=== PATIENT | female | born 1970 | race Caucasian/White ===

== ENCOUNTER → 2016-06-23 | Outpatient (REF) | payer OTHER ==
[~2016-06-23] MED LIST: /LOR25TA PO; AMBI5TAB OR; DARV100T OR; DIOV160T5 OR; FLEXERIL OR; FLEXERIL PO; IBUP800T OR; NABU500T OR; PRIL20CA OR; SAVE50TA PO; SAVELLA OR; TRAM50TA2 PO; VENTAER IN; savella OR
== END ==
LOC: M SFHCWAGY 15:33
PROVIDERS: ATTEND Nurse Practitioner Family
DX: N90.89 Other specified noninflammatory disorders of vulva and perineum (principal)

== ENCOUNTER 2016-07-06 23:25 | Emergency (ER) | payer OTHER ==
[~2016-07-06] VITALS: Ht 170.2 cm; Wt 93.0 kg
[2016-07-06] MEDS ORDERED: INCR1INH INH (23:48)
[2016-07-06] MEDS ORDERED: TIZANIDINE PO (23:48)
[2016-07-06] MEDS ORDERED: LOSA100T36 PO (23:48)
[2016-07-06] MEDS ORDERED: GABA-282 PO (23:48)
[2016-07-06] MEDS ORDERED: VENL150C43 PO (23:48)
[2016-07-06] MEDS ORDERED: BREO1INH INH (23:48)
[2016-07-07 00:45] LABS: BASO # 0.1 K/mm3 (0.0-0.2); BASO % 0.7 % (0.0-1.0); EOS # 0.4 K/mm3 (0.0-0.50); EOS % 3.4 % (0.0-3.0); LARGE UNSTAINED CELL # 0.2 K/mm3 (0.0-0.4); LARGE UNSTAINED CELL % 1.4 % (0.0-4.0); LYMPH # 3.8 K/mm3 (1.5-4.5); LYMPH % 31.4 % (24.0-44.0); MEAN CORPUSCULAR HEMOGLOBIN 31.4 pg (27.0-33.0); MEAN CORPUSCULAR VOLUME 92.5 fl (80.0-96.0); MONO # 0.5 K/mm3 (0.0-0.8); MONO % 4.5 % (0.0-5.0); NEUTROPHILS # 6.9 K/mm3 (1.8-7.7); NEUTROPHILS % 58.6 % (36.0-66.0); PLATELET COUNT, AUTOMATED 278 k/mm3 (150-450); RED CELL DISTRIBUTION WIDTH 12.5 % (11.5-14.5); WHITE BLOOD COUNT 11.7 K/mm3 (4.0-10.0)
[2016-07-07] MEDS ORDERED: KETOROLAC 30 MG/ML VIAL (J1885) IV ONE (00:45)
[2016-07-07] MEDS ORDERED: NS 1,000 ML IV ONE (00:45)
[2016-07-07 01:02] LABS: ALBUMIN 3.4 GM/DL (3.2-5.2); ALBUMIN/GLOBULIN RATIO 0.94 (1.00-1.93); ALKALINE PHOSPHATASE 85 U/L (45-117); ALT/SGPT 26 U/L (12-78); AMYLASE 31 U/L (25-115); ANION GAP 7 MEQ/L (8-16); AST/SGOT 14 U/L (15-37); BILIRUBIN,DIRECT < 0.1 MG/DL (0.0-0.2); BILIRUBIN,TOTAL 0.1 MG/DL (0.2-1.0); BLOOD UREA NITROGEN 16 MG/DL (7-18); CALCIUM LEVEL 9.1 MG/DL (8.5-10.1); CARBON DIOXIDE LEVEL 27 MEQ/L (21-32); CHLORIDE LEVEL 103 MEQ/L (98-107); CREATININE FOR GFR 0.96 MG/DL (0.55-1.02); GLOMERULAR FILTRATION RATE > 60.0 (>58); GLUCOSE, FASTING 101 MG/DL (70-105); POTASSIUM SERUM 4.1 MEQ/L (3.5-5.1); SODIUM LEVEL 137 MEQ/L (136-145)
[2016-07-07] MEDS ORDERED: ISOVUE-370 76% 100ML VIAL (Q9967) As Ordered ONE (01:24)
--- NOTE | 2016-07-07 01:50 | REPUSA ---
CT of the abdomen and pelvis with contrast Clinical statement: Pain. Technique: Multiple axial CT images were obtained from the base of the lungs through the floor of the pelvis utilizing 5 mm axial slices after administration of nonionic intravenous contrast. Coronal an d sagittal reconstructions were also obtained. No comparison is available. Findings: Chest: The visualized lung bases are clear. Abdomen: The liver, spleen, pancreas, kidneys, gallbladder, and adrenal glands are unremarkable. The aorta is within normal limits. There is no evidence of abdominal lymphadenopathy or ascites. Pelvis: The bowel is unremarkable, with no obstructive or inflammatory changes. The appendix is james l. The urinary bladder is within normal limits. The other pelvic structures appear grossly intact. Th ere is no evidence of pelvic lymphadenopathy or ascites. Bones: There are no suspicious osseous abnormalities seen. Impression: Unremarkable CT examination of the abdomen and pelvis No acute abnormality to explain the patient's pain.
[2016-07-07] MEDS ORDERED: MORPHINE 4 MG/ML 1ML SYRINGE IV ONE (02:30)
[2016-07-07] MEDS ORDERED: diphenhydrAMINE INJ 50MG/ML VIAL (J1200) IV ONE (02:30)
[2016-07-07 03:07] VITALS: BP 124/80
== END 2016-07-07 03:09 | disposition home or self-care (01) ==
LOC: M ED 07-07 00:30
DX: R10.9 Unspecified abdominal pain (principal); K21.9 Gastro-esophageal reflux disease without esophagitis; G89.29 Other chronic pain; M54.9 Dorsalgia, unspecified; F17.200 Nicotine dependence, unspecified, uncomplicated; Z79.899 Other long term (current) drug therapy; Z88.5 Allergy status to narcotic agent
CPT/HCPCS: 74177; 80048; 80076; 81001; 82150; 83690; 85025; 87086; 96361; 96374; 96375; 99282; J1200; J1885; Q9967

== ENCOUNTER 2017-03-21 12:13 | Emergency (ER) | payer OTHER ==
[2017-03-21] MEDS: KETOROLAC 60 MG/2 ML VIAL (J1885) IM (14:24)
[2017-03-21] MEDS: BACLOFEN 10 MG TAB PO (14:24)
== END 2017-03-21 14:26 | disposition home or self-care (01) ==
LOC: M ED 12:13
DX: M54.32 Sciatica, left side (principal); G89.29 Other chronic pain; M79.605 Pain in left leg; I10 Essential (primary) hypertension; J45.909 Unspecified asthma, uncomplicated; G47.33 Obstructive sleep apnea (adult) (pediatric); M79.7 Fibromyalgia; F41.9 Anxiety disorder, unspecified; F33.9 Major depressive disorder, recurrent, unspecified; F17.210 Nicotine dependence, cigarettes, uncomplicated; Z88.5 Allergy status to narcotic agent; Z79.899 Other long term (current) drug therapy; Z79.51 Long term (current) use of inhaled steroids
CPT/HCPCS: J1885

== ENCOUNTER 2018-01-04 19:26 | Emergency (ER) | payer MEDICARE, MEDICAID, OTHER ==
[2018-01-04] MEDS ORDERED: diphenhydrAMINE 50 MG CAP As Ordered (20:18)
[2018-01-04] MEDS: diphenhydrAMINE 50 MG CAP PO (20:21)
[2018-01-04] MEDS: predniSONE 20 MG TAB PO (20:32)
== END 2018-01-04 21:29 | disposition home or self-care (01) ==
LOC: M ED 19:26
DX: S80.861A Insect bite (nonvenomous), right lower leg, initial encounter (principal); W57.XXXA Bitten or stung by nonvenomous insect and other nonvenomous arthropods, initial encounter; Y92.89 Other specified places as the place of occurrence of the external cause; I10 Essential (primary) hypertension; J45.909 Unspecified asthma, uncomplicated; G47.30 Sleep apnea, unspecified; M79.7 Fibromyalgia; K21.9 Gastro-esophageal reflux disease without esophagitis; F41.9 Anxiety disorder, unspecified; F33.9 Major depressive disorder, recurrent, unspecified; Z79.899 Other long term (current) drug therapy; Z88.5 Allergy status to narcotic agent; F17.210 Nicotine dependence, cigarettes, uncomplicated
CPT/HCPCS: 99283

== ENCOUNTER → 2018-09-07 | Outpatient (CLI) | payer MEDICARE ==
[~2018-09-07] MED LIST changes: +BENA25CA4 PO; +BREO1INH INH; +GABA-843 PO; +INCR1INH INH; +LOSA100T50 PO; +PRED20TA PO; +SERT-138 PO; +TIZANIDINE PO; +VENL150C43 PO
--- NOTE | 2018-09-07 13:36 | REPMRS ---
Patient History The patient states she had a clinical breast exam in 08/2018. Family history of unknown cancer at age 50 or over in paternal grandmother, unknown cancer at age 50 or over in paternal aunt. Digital Woman Screen Mammo: September 07, 2018 - Exam #: [id number] Bilateral CC and MLO view(s) were taken. Technologist: Karrie Kapadia, Technologist Prior study comparison: October 31, 2014, digital woman screen mammo performed at [facility]. FINDINGS: There are scattered fibroglandular densities. There has been no change in the appearance of the mammogram from the prior studies. There is a mild amount of scattered fibroglandular density which is fairly symmetric. There is no interval development of dominant mass, architectural distortion, or clustered microcalcification suggestive of malignancy. 3-D tomosynthesis shows no additional findings. Assessment: BI-RADS/ACR category 1 mammogram. Negative Mammogram. Recommendation Routine screening mammogram of both breasts in 1 year (for women over age 40). This patient's Lifetime Breast Cancer RIsk is estimated at 9.9 %. This mammogram was interpreted with the aid of an FDA-approved computer-aided dectection system. Electronically Signed By: Sotero Lam MD 09/07/18 2146
== END ==
LOC: M WHC 11:32
PROVIDERS: ATTEND Nurse Practitioner Family
DX: Z01.419 Encounter for gynecological examination (general) (routine) without abnormal findings (principal); Z12.31 Encounter for screening mammogram for malignant neoplasm of breast
CPT/HCPCS: 77063; 77067; G0101; G0123

== ENCOUNTER 2019-08-26 13:58 | Emergency (ER) | payer MEDICARE, MEDICAID ==
[~2019-08-26] VITALS: Ht 165.1 cm; Wt 95.3 kg
[2019-08-26] MEDS ORDERED: OMEP-221 PO (14:25)
[2019-08-26] MEDS ORDERED: TIZA4TAB4 PO (14:25)
[2019-08-26] MEDS ORDERED: HYDR-3719 PO (14:25)
[2019-08-26] MEDS ORDERED: VENTAER INH (14:25)
[2019-08-26] MEDS ORDERED: BREO1INH3 INH (14:25)
[2019-08-26] MEDS ORDERED: IBUP80TA PO (14:25)
[2019-08-26] MEDS ORDERED: GABA600T4 PO (14:25)
[2019-08-26] MEDS ORDERED: ZOLP5TAB PO (14:25)
[2019-08-26] MEDS ORDERED: methocarbamoL 750 MG TAB PO ONE (14:45)
[2019-08-26] MEDS ORDERED: KETOROLAC 60MG 2ML VIAL IM ONE (14:45)
[2019-08-26] MEDS ORDERED: ROBA750T4 PO (15:15)
[2019-08-26 15:18] VITALS: BP 137/92
== END 2019-08-26 15:20 | disposition home or self-care (01) ==
LOC: M ED 13:58
DX: M54.9 Dorsalgia, unspecified (principal); G89.29 Other chronic pain; I10 Essential (primary) hypertension; J45.909 Unspecified asthma, uncomplicated; K21.9 Gastro-esophageal reflux disease without esophagitis; M79.7 Fibromyalgia; F41.9 Anxiety disorder, unspecified; F32.9 Major depressive disorder, single episode, unspecified; F17.210 Nicotine dependence, cigarettes, uncomplicated; G47.30 Sleep apnea, unspecified; Z88.5 Allergy status to narcotic agent; Z79.899 Other long term (current) drug therapy
CPT/HCPCS: 99283; J1885

== ENCOUNTER 2019-12-09 20:58 | Emergency (ER) | payer MEDICARE, MEDICAID ==
[~2019-12-09] VITALS: Ht 167.6 cm; Wt 93.2 kg
[~2019-12-09 20:58] MED LIST changes: +BREO1INH3 INH; +GABA600T4 PO; +HYDR-3719 PO; +IBUP80TA PO; +OMEP-221 PO; +ROBA750T4 PO; +TIZA4TAB4 PO; +VENTAER INH; +ZOLP5TAB PO
[2019-12-09] MEDS ORDERED: GI COCKTAIL 50ML BTL(HYOSCYAMINE/MAALOX/LIDOCAINE VISCOUS)(1:3:1) PO ONE (21:45)
[2019-12-09 21:58] LABS: INR 0.84; PROTHROMBIN TIME 11.7 SECONDS (11.8-14.0)
[2019-12-09 21:59] LABS: PARTIAL THROMBOPLASTIN TIME 25.2 SECONDS (25.0-38.4)
[2019-12-09 22:01] LABS: D-DIMER QUANT 573.71 ng/ml (<500)
[2019-12-09 22:05] LABS: BASO # 0.1 10^3/uL (0.0-0.2); BASO % 0.7 % (0.0-1.0); EOS # 0.4 10^3/uL (0.0-0.5); EOS % 4.5 % (0.0-3.0); HEMATOCRIT 42.5 % (36.0-47.0); HEMOGLOBIN 14.2 g/dl (12.0-15.5); LYMPH # 3.6 10^3/uL (1.5-5.0); LYMPH % 37.2 % (24.0-44.0); MEAN CORPUSCULAR HEMOGLOBIN 30.1 pg (27.0-33.0); MEAN CORPUSCULAR HGB CONC 33.4 g/dl (32.0-36.5); MONO # 0.5 10^3/uL (0.0-0.8); MONO % 4.8 % (0.0-5.0); NEUTROPHILS # 5.1 10^3/uL (1.5-8.5); NEUTROPHILS % 52.6 % (36.0-66.0); PLATELET COUNT, AUTOMATED 278 10^3/uL (150-450); RED BLOOD COUNT 4.72 10^6/uL (4.00-5.40); WHITE BLOOD COUNT 9.7 10^3/uL (4.0-10.0)
[2019-12-09 22:12] LABS: ALBUMIN 3.8 GM/DL (3.2-5.2); ALT/SGPT 28 U/L (12-78); BILIRUBIN,DIRECT < 0.1 MG/DL (0.0-0.2); BILIRUBIN,TOTAL 0.2 MG/DL (0.2-1.0); BLOOD UREA NITROGEN 12 MG/DL (7-18); C REACTIVE PROTEIN QUANTITATIV 0.74 MG/DL (0.00-0.30); CALCIUM LEVEL 9.4 MG/DL (8.5-10.1); CARBON DIOXIDE LEVEL 25 MEQ/L (21-32); CHLORIDE LEVEL 112 MEQ/L (98-107); CREATININE FOR GFR 0.97 MG/DL (0.55-1.30); FREE T4 0.81 NG/DL (0.76-1.46); GLOMERULAR FILTRATION RATE > 60.0 (>58); GLUCOSE, FASTING 114 MG/DL (70-100); LIPASE 219 U/L (73-393); NT-PRO BNP 213 PG/ML (<125); POTASSIUM SERUM 3.7 MEQ/L (3.5-5.1); SODIUM LEVEL 143 MEQ/L (136-145); TOTAL PROTEIN 7.4 GM/DL (6.4-8.2)
[2019-12-09 22:13] LABS: HCG, SERUM QUALITATIVE NEGATIVE (NEGATIVE)
[2019-12-09] MEDS ORDERED: ALPRAZolam 0.5 MG TAB PO ONE (22:30)
[2019-12-09 22:34] LABS: ERYTHROCYTE SEDIMENTATION RATE 13 mm/hr (0-20)
[2019-12-09] MEDS ORDERED: ISOVUE-370 76% 100ML VIAL As Ordered ONE (22:37)
[2019-12-09 22:48] VITALS: BP 159/79
--- NOTE | 2019-12-09 23:08 | REPVR ---
PROCEDURE INFORMATION: Exam: XR Chest, 1 View Exam date and time: 12/09/2019 10:26 PM Age: 49 years old Clinical indication: Chest pain; Type not specified TECHNIQUE: Imaging protocol: XR of the chest Views: 1 view. COMPARISON: No relevant prior studies available. FINDINGS: Lungs: Unremarkable. No consolidation. Pleural space: Unremarkable. No pleural effusion. No pneumothorax. Heart/Mediastinum: Unremarkable. No cardiomegaly. Bones/joints: Unremarkable. IMPRESSION: No acute findings. Electronically signed by: Boo Penn On 12/09/2019 23:07:42 PM
--- NOTE | 2019-12-14 12:06 | ECGEPIP ---
[facility] - ED Test Date: 2019-12-09 Pat Name: LATOYA METZ Department: Room: - Gender: Female Glove Stitcher: timothy : 1970 Requested By: CHRISTINA Sim Order Number: [id number] Reading MD: Dee Izaguirre Measurements Intervals [place] Rate: 88 P: 30 AK: 160 QRS: 39 QRSD: 93 T: 41 QT: 352 QTc: 427 Interpretive Statements SINUS RHYTHM NONSPECIFIC T-WAVE ABNORMALITY BORDERLINE ECG SEE SCANNED DOWNTIME REPORT
== END 2019-12-09 22:58 | disposition left against medical advice (07) ==
LOC: M ED 20:58
DX: Z53.20 Procedure and treatment not carried out because of patient's decision for unspecified reasons (principal); Z79.51 Long term (current) use of inhaled steroids; Z79.899 Other long term (current) drug therapy; Z88.6 Allergy status to analgesic agent

== ENCOUNTER 2020-05-18 10:53 | Emergency (ER) | payer MEDICAID, MEDICARE ==
[~2020-05-18] VITALS: Ht 167.6 cm; Wt 93.5 kg
[2020-05-18 10:53] VITALS: BP 153/94
[~2020-05-18 10:53] MED LIST changes: +GABA-282 PO; -GABA-843 PO
--- OUTSIDE RECORDS SUMMARY | 2020-05-18 10:59 | CCD | Continuity of Care Document ---
Author Author Maria Ines ROJAS M.D. Organization Unknown Address [address] [address] Phone [phone] Problems Active Problems Provider Date Essential hypertension Maria Isabel Teixeira EPIC MANAGER-BC Onset: 2009 Insomnia Maria Isabel Teixeira [facility] Onset: 0 Tobacco user Maria Isabel Teixeira EPIC MANAGER-BC Onset: 0 Peptic reflux disease Maria Isabel Teixeira [facility] Onset: 010 Polyarthropathy Pastora Shahid RPA-C Onset: 2012 Benign essential hypertension Pastora Shahid RPA-C Ons et: 08/03/2012 Allergic rhinitis Pastora Shahid RPA-C Onset: 2012 Chronic pain syndrome Pastora Shahid RPA-C Onset: 07/27 Chronic obstructive lung disease Pastora Shahid RPA-C Onset: 07/11/2013 Acute bronchitis Pastora Shahid RPA-C Onset: 2013 Spinal stenosis in cervical region Vernon Rojas M.D. O nset: 07/31/2014 Stenosis of intervertebral foramina Vernon Rojas M.D. Onset: 07/31/2014 Acute pharyngitis Elmer Encinas RPA Onset: 09/06/2016 Acute sinusitis Elmer Encinas RPA Onset: 09/06/2016 Social History Type Date Description Comments Sex Unknown Tobacco Use Start: Unknown Current Cigarette Smoker 1/2 Pac k Daily Smoking for 20 years ETOH Use Drinks alcohol about once per we ek. Tobacco Use Start: Unknown Patient is a current smoker, smo kes every day Allergies, Adverse Reactions, Alerts Active Allergies Reaction Severity Comments Date Morphine 07/18/2009 Inactive Allergies NKDA 07/18/2009 Medications Active Medications SIG Qnty Indications Ordering Provide r Date Benadryl Allergy 25mg Tablets 1 by mouth daily at bedtime for sleep OTC Vernon Rojas M. D. 12/12/2019 Buspirone HCL 10mg Tablets take one tablet by mouth three times a day maximum daily dose = three tablets 90tabs Vernon Rojas M.D. 12/11/2019 Zoloft 50mg Tablets 1 by mouth every day 90tabs Vernon Rojas M.D. 06/29/2019 Hydrocodone-Acetaminophen 10-325mg Tablets one by mouth three times a day [id number] 90taVernon Tamayo M.D. 11/01/2018 Zolpidem Tartrate 5mg Tablets take one tablet by mouth every night at bedtime as needed for insomnia maximum daily dose = 1 tablet [id number] 30tabs G47.00 Vernon Rojas M.D. 04/2018 Sertraline HCL 100mg Tablets take one tablet by mouth every day 30tabs Vernon Rojas M.D . 04/03/2018 Tizanidine HCL 4mg Tablets Take One Tablet By Mouth Three Times A Day as Needed Max 3Tabs/Day 90taVernon Tamayo M.D. 2017 Gabapentin 600mg Tablets take one tablet by mouth qid 120tabs Vernon Rojas M.D. 04/04/19 18 Breo Ellipta 200-25mcg/Inh Aerosol Inhale One puff By Mouth Every Day 60units Vernon Rojas M .D. 11/02/2016 Incruse Ellipta 62.5mcg/Inh Aeroso l Inhale 1 puff By Mouth Once Daily Take AT Same Time Every Day (Replaces Spiriva) 30units Vernon Rojas M.D. 02/19/2015 Losartan Potassium 100mg Tablets Take One Tablet By Mouth Every Day Maximum Daily Dose = 1 30tabs Vernon Rojas M.D. 05/29/2013 Ventolin HFA 108(90Base) mcg/Act A erosol inhale two puffs by mouth every 4 hours as needed for shortness of breath 18unVernon Villareal M.D. 07/18/[address] Take One Capsule By Mouth Twice A Day 60caps Vernon Rojas M.D. 11/19/2010 Ibuprofen 800mg Tablets Take One Tablet By Mouth Three Times A Day as Needed Maximum Daily Dose = 3 Tablets 90tabs Vernon Rojas M.D. Medications Administered in Office Medication SIG Qnty Indications Ordering Provider Date Injection (SC)/(Im) Injection Elmer Encinas RPA 09/06/2016 Injection (SC)/(Im) Injection Vernon Rojas M.D. 01/03/2015 Injection (SC)/(Im) Injection Pastora Shahid [facility] 12/21/2011 Injection (SC)/(Im) Injection Maria Isabel Teixeira [facility] 01/19/2011 Injection (SC)/(Im) Injection Maria Isabel Teixeira [facility] 10/05/2010 Immunizations CPT Code Status Date Vaccine Lot # [id number] Given 12/30/2017 Influenza Virus Vaccine, Quadrivalent, Slit Virus, Im Use 3Y & Up [id number] 75786 Given 01/18/2017 Influenza Virus Vaccine, Quadrivalent, Slit Virus, Im Use 3Y & Up [id number] 58046 Given 01/16/2016 Influenza Virus Vaccine, Quadrivalent, Slit Virus, Im Use 3Y & Up 92647 Given 01/03/2015 Influenza Virus Vac. Split Virus Individuals 3 Years And Above [id number] [id number] Given 12/21/2011 Influenza Virus Vac. Split Virus Individuals 3 Years And Above [id number] 06613 Given 01/19/2011 Influenza Virus Vac. Split Virus Individuals 3 Years And Above [id number] Vital Signs Date Vital Result Comment 03/07/2020 3:16pm BP Systolic 138 mmHg BP Diastolic 88 mmHg Body Temperature 98.4 F Heart Rate 90 /min Respiratory Rate 18 /min Height 66 inches 5'6" Weight 213.00 lb [place] Body Weight 130 lb BMI (Body Mass Index) 34.4 kg/m2 O2 % BldC Oximetry 97 % 12/12/2019 3:15pm BP Systolic 144 mmHg BP Diastolic 96 mmHg Body Temperature 98.1 F Heart Rate 94 /min Respiratory Rate 18 /min Height 66 inches 5'6" Weight 210.00 lb [place] Body Weight 130 lb BMI (Body Mass Index) 33.9 kg/m2 O2 % BldC Oximetry 94 % Results Test Acquired Date Facility Test Result H/L Range Note Ua W/ Reflex To Culture 12/09/2019 [facility] (Interface) [phone] Appearance, Urine RFX CLEAR Normal Clear Color, Urine RFX COLORLESS Normal Yellow PH,Urine RFX 6.0 units Normal 5.0-9.0 Specific [place] Ur Auto RFX 1.002 Normal 1.002-1.035 Protein, Urine Auto RFX NEGATIVE mg/dL Normal Negative Glucose, Urine (Ua) Auto RFX NEGATIVE mg/dL Normal Negative Ketone, Urine Auto RFX NEGATIVE mg/dL Normal Negative Urobilinogen, Urine Auto RFX 0.2 mg/dL Normal 0.0-2.0 Bilirubin, Urine Auto RFX NEGATIVE Normal Negative Nitrite, Urine Auto RFX NEGATIVE Normal Negative Leukocyte Esterase Ur Auto RFX NEGATIVE Normal Negative Blood, Urine Blood RFX NEGATIVE Normal Negative WBC, Urine Auto RFX 1 /HPF Normal 0-3 RBC, Urine Auto RFX 0 /HPF Normal 0-3 Bacteria, Urine Auto RFX NEGATIVE Normal Negative Squam Epithelial Cell Ur Aurfx 1 /HPF Normal 0-6 Hyaline Cast, Urine Auto RFX 0 /LPF Normal 0-1 Laboratory test finding 12/09/2019 [facility] (Interface) [phone] iSTAT Troponin 0.00 NG/ML Normal 0.00-0.08 Prothrombin Time/Inr 12/09/2019 [facility]) [phone] Prothrombin Time 11.7 seconds Low 11.8-14.0 Inr 0.84 Normal 1 Laboratory test finding 12/09/2019 [facility] (Interface) [phone] Partial Thromboplastin Time 25.2 seconds Normal 25 .0-38.4 D-Dimer Quant 573.71 ng/ml High <500 Liver Profile 12/09/2019 [facility] (I nterface) [phone] Ast/Sgot 13 U/L Normal 7-37 Alt/SGPT 28 U/L Normal 12-78 Alkaline Phosphatase 108 U/L Normal 45-117 Bilirubin,Total 0.2 mg/dL Normal 0.2-1.0 Bilirubin,Direct < 0.1 mg/dL Normal 0.0-0.2 Total Protein 7.4 GM/DL Normal 6.4-8.2 Albumin 3.8 GM/DL Normal 3.2-5.2 Albumin/Globulin Ratio 1.1 Low 1.2-2.2 Basic Metabolic Profile 12/09/2019 [facility] (Interface) [phone] Glucose, Fasting 114 mg/dL High 70-100 Blood Urea Nitrogen 12 mg/dL Normal 7-18 Creatinine For GFR 0.97 mg/dL Normal 0.55-1.30 Glomerular Filtration Rate > 60.0 Normal >58 2 Sodium Level 143 mEq/L Normal 136-145 Potassium Serum 3.7 mEq/L Normal 3.5-5.1 Chloride Level 112 mEq/L High 98-107 Carbon Dioxide Level 25 mEq/L Normal 21-32 Anion Gap 6 mEq/L Low 8-16 Calcium Level 9.4 mg/dL Normal 8.5-10.1 Laboratory test finding 12/09/2019 [facility] (Interface) [phone] NT-Pro BNP 213 pg/mL High <125 Lipase 219 U/L Normal 73-393 Thyroid Stimulating Hormone 1.050 uIU/ML Normal 0.358-3.740 Free T4 0.81 ng/dL Normal 0.76-1.46 HCG Serum Qualitative NEGATIVE Normal Negative C Reactive Protein Quantitativ 0.74 mg/dL High 0.00-0.30 CBC With Differential 12/09/2019 [facility] [phone] White Blood Count 9.7 10 Normal 4.0-10.0 Red Blood Count 4.72 10 Normal 4.00-5.40 Hemoglobin 14.2 g/dL Normal 12.0-15.5 Hematocrit 42.5 % Normal 36.0-47.0 Mean Corpuscular Volume 90.0 fl Normal 80.0-96.0 Mean Corpuscular Hemoglobin 30.1 pg Normal 27.0-33.0 Mean Corpuscular HGB Conc 33.4 g/dL Normal 32.0-36.5 Red Cell Distribution Width 13.8 % Normal 11.5-14.5 Platelet Count, Automated 278 10 Normal 150-450 Neutrophils % 52.6 % Normal 36.0-66.0 Lymph % 37.2 % Normal 24.0-44.0 Wilkin % 4.8 % Normal 0.0-5.0 Eos % 4.5 % High 0.0-3.0 Baso % 0.7 % Normal 0.0-1.0 Immature Granulocyte % 0.2 % Normal 0-3.0 Nucleated Red Blood Cell % 0.0 % Normal 0-0 Neutrophils # 5.1 10 Normal 1.5-8.5 Lymph # 3.6 10 Normal 1.5-5.0 Wilkin # 0.5 10 Normal 0.0-0.8 Eos # 0.4 10 Normal 0.0-0.5 Baso # 0.1 10 Normal 0.0-0.2 Laboratory test finding 12/09/[facility] [phone] Erythrocyte Sedimentation Rate 13 mm/hr Normal 0 -20 1 THERAPUTIC HUMAN INR VALUES INDICATIONS NORMAL RANGES PROPHYLAXIS/TREATMENT OF: VENOUS THROMBOSIS 2.0-3.0 PULMONARY EMBOLISM 2.0-3.0 PREVENTION OF SYSTEMIC EMBOLISM FROM: TISSUE HEART VALVES 2.0-3.0 ACUTE MYOCARDIAL INFARCTION 2.0-3.0 VALVULAR HEART DISEASE 2.0-3.0 ATRIAL FIBRILLATION 2.0-3.0 MECHANICAL VALVES(HIGH RISK) 2.5-3.5 RECURRENT MYOCARDIAL INFARCTION 2.5-3.5 2 Units are mL/min/1.73 m2 Chronic Kidney Disease Staging per NKF: Stage I & II GFR >=60 Normal to Mildly Decreased Stage III GFR 30-59 Moderately Decreased Stage IV GFR 15-29 Severely Decreased Stage V GFR <15 Very Little GFR Left ESRD GFR <15 on EMPLOYMENT SERVICES DIRECTOR Procedures Date Code Description Status 12/11/2019 73724 Electrocardiogram Complete Compl eted Medical Devices Description No Information Available Encounters Type Date Location Provider Dx Diagnosis Office Visit 03/07/2020 2:00p [place] [facility] Vernon Rojas M. D. M48.061 Spinal stenosis, lumbar region without neurogenic cristofer Office Visit 12/12/2019 2:45p [place] [facility] Vernon Rojas M. D. F41.9 Anxiety disorder, unspecified J44.9 Chronic obstructive pulmonar y disease, unspecified I10 Essential (primary) hyperten christopher M48.061 Spinal stenosis, lumbar sabine on without neurogenic cristofer F33.1 Major depressive disorder, r ecurrent, moderate Office Visit 12/11/2019 11:00a [facility] Rodriguez Jefferson PA F41.9 Anxiety disorder, unspecified R07.89 Other chest pain R03.0 Elevated blood-pressure read ing, w/o diagnosis of htn Z82.49 Family hx of ischem heart di s and oth dis of the circ sys Assessments Date Code Description Provider 03/07/2020 M48.061 Spinal stenosis, lumbar region w [facility] neurogenic claudicati Vernon Rojas M.D. 12/12/2019 F41.9 Anxiety disorder, unspecified Mi tchelVernon swanson M.D. 12/12/2019 J44.9 Chronic obstructive pulmonary di sease, unspecified Vernon Rojas M.D. 12/12/2019 I10 Essential (primary) hypertension Vernon Rojas M.D. 12/12/2019 M48.061 Spinal stenosis, lumbar region w [facility] neurogenic claudicati Vernon Rojas M.D. 12/12/2019 F33.1 Major depressive disorder, recur rent, moderate Vernon Rojas M.D. 12/11/2019 F41.9 Anxiety disorder, unspecified Ba Stacy genao PA 12/11/2019 R07.89 Other chest pain Sa philippe Jefferson PA 12/11/2019 R03.0 Elevated blood-press ure reading, without diagnosis of hypertension Stacy Jefferson PA 12/11/2019 Z82.49 Family history of is chemic heart disease and other diseases of the circulatory system Stacy Jefferson PA Plan of Treatment Future Appointment(s):* 06/06/2020 11:30 am - Vernon Rojas M.D. at [facility] Functional Status Description No Information Available Mental Status Description No Information Available Referrals Refer to Dr Reason for Referral Status Appt Date Alex Carr M.D chronic pain and anxiety- eval and rx Sent Pain Management [address] [facility] [address] [phone] [facility] Cardiology intermittent chest pain- eval and rx Sent 02/14/2020 [address] [facility] [address] [place], [place] [address] [phone] [facility] Outpatient Psychiatric Services anxiety and depres christopher, panic attacks- eval and rx Closed [address] [place] [address] [phone] Jake Munoz M.D. eval and treat intermittent chest pain. Significant family history of first degree male and female relative with AK less than the age of 55. Sister also recently had AK at young age. Closed Cardiology [address] [place] [address] [phone]
--- OUTSIDE RECORDS SUMMARY | 2020-05-18 10:59 | CCD | Continuity of Care Document ---
Author Author Maria Ines ROJAS M.D. 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 11/01/2018 Zolpidem Tartrate 5mg Tablets take one tablet by mouth every night at bedtime as needed for insomnia maximum daily dose = 1 tablet [id number] 30tabs G47.00 Vernon Rojas M.D. 04/2018 Sertraline [...] M.D. 01/03/2015 Injection (SC)/(Im) Injection Pastora Shahid [facility] 12/21/2011 Injection (SC)/(Im) Injection Maria Isabel Teixeira [facility] 01/19/2011 Injection (SC)/(Im) Injection Maria Isabel Teixeira [facility] 10/05/2010 Immunizations CPT Code Status Date Vaccine Lot # [id number] Given 12/30/2017 Influenza Virus Vaccine, Quadrivalent, Slit Virus, Im Use 3Y & Up [id number] 18515 Given 01/18/2017 Influenza Virus Vaccine, Quadrivalent, Slit Virus, Im Use 3Y & Up [id number] 36449 Given 01/16/2016 Influenza Virus Vaccine, Quadrivalent, Slit Virus, Im Use 3Y & Up 78857 Given 01/03/2015 Influenza Virus Vac. Split Virus Individuals 3 Years And Above [id number] 83318 Given 12/21/2011 Influenza Virus Vac. Split Virus Individuals 3 Years And Above [id number] Given 01/19/2011 Influenza Virus Vac. Split Virus Individuals 3 Years And Above [id number] Vital Signs Date Vital Result Comment 12/12/2019 3:15pm BP Systolic 144 mmHg BP Diastolic 96 mmHg Body Temperature 98.1 F Heart Rate 94 /min Respiratory Rate 18 /min Height 66 inches 5'6" Weight 210.00 lb [place] Body Weight 130 lb BMI (Body Mass Index) 33.9 kg/m2 O2 % BldC Oximetry 94 % 12/11/2019 11:17am BP Systolic 164 mmHg BP Diastolic 100 mmHg BP Systolic Recheck 148 mmHg BP Diastolic Recheck 100 mmHg Body Temperature 97.4 F Heart Rate 84 /min Respiratory Rate 20 /min Height 66 inches 5'6" Weight 210.00 lb [place] Body Weight 130 lb BMI (Body Mass Index) 33.9 kg/m2 Head Circumference 148 inches O2 % BldC Oximetry 10 % Results Test Acquired Date Facility Test Result H/L Range Note Ua W/ Reflex To Culture 12/09/2019 [facility] (Interface) [phone] Appearance, Urine RFX CLEAR Normal Clear Color, Urine RFX COLORLESS Normal Yellow PH,Urine RFX 6.0 units Normal 5.0-9.0 Specific [place] Ur Auto RFX 1.002 Normal 1.002-1.035 Protein, [...] /LPF Normal 0-1 Laboratory test finding 12/09/2019 [facility] ([facility]) [phone] iSTAT Troponin 0.00 NG/ML Normal 0.00-0.08 Prothrombin Time/Inr 12/09/2019 [facility]) [phone] Prothrombin Time 11.7 seconds Low 11.8-14.0 Inr 0.84 Normal 1 Laboratory test finding 12/09/2019 [facility] (Interface) [phone] Partial Thromboplastin Time 25.2 seconds Normal 25 .0-38.4 D-Dimer Quant 573.71 ng/ml High <500 Liver Profile 12/09/2019 [facility] (I nterface) [phone] Ast/Sgot 13 U/L Normal 7-37 Alt/SGPT 28 U/L Normal 12-78 Alkaline Phosphatase 108 U/L Normal 45-117 Bilirubin,Total 0.2 mg/dL Normal 0.2-1.0 Bilirubin,Direct < 0.1 mg/dL Normal 0.0-0.2 Total Protein 7.4 GM/DL Normal 6.4-8.2 Albumin 3.8 GM/DL Normal 3.2-5.2 Albumin/Globulin Ratio 1.1 Low 1.2-2.2 Basic Metabolic Profile 12/09/2019 [facility] (Interface) [phone] Glucose, Fasting 114 mg/dL High 70-100 Blood [...] mg/dL Normal 8.5-10.1 Laboratory test finding 12/09/2019 [facility] (Interface) [phone] NT-Pro BNP 213 pg/mL High <125 Lipase 219 U/L Normal 73-393 Thyroid Stimulating Hormone 1.050 uIU/ML Normal 0.358-3.740 Free T4 0.81 ng/dL Normal 0.76-1.46 HCG Serum Qualitative NEGATIVE Normal Negative C Reactive Protein Quantitativ 0.74 mg/dL High 0.00-0.30 CBC With Differential 12/09/2019 [facility] (Interface) [phone] White Blood Count 9.7 10 Normal 4.0-10.0 [...] 36.0-66.0 Lymph % 37.2 % Normal 24.0-44.0 Pender % 4.8 % Normal 0.0-5.0 Eos % 4.5 % High 0.0-3.0 Baso % 0.7 % Normal 0.0-1.0 Immature Granulocyte % 0.2 % Normal 0-3.0 Nucleated Red Blood Cell % 0.0 % Normal 0-0 Neutrophils # 5.1 10 Normal 1.5-8.5 Lymph # 3.6 10 Normal 1.5-5.0 Pender # 0.5 10 Normal 0.0-0.8 Eos # 0.4 10 Normal 0.0-0.5 Baso # 0.1 10 Normal 0.0-0.2 Laboratory test finding [facility]09[facility] (Interface) [phone] Erythrocyte Sedimentation Rate 13 mm/hr Normal 0 [...] Little GFR Left ESRD GFR <15 on TERMINAL PRESS OPERATOR Procedures Date Code Description Status 12/11/2019 91221 Electrocardiogram Complete Compl eted Medical Devices Description No Information Available Encounters Type Date Location Provider Dx Diagnosis Office Visit 03/07/2020 2:00p [place] [facility] Vernon Rojas M. D. M48.061 Spinal stenosis, lumbar region without neurogenic cristofer Office Visit 12/12/2019 2:45p [place] [facility] Vernon Rojas M. D. F41.9 Anxiety disorder, unspecified J44.9 Chronic obstructive pulmonar y disease, unspecified I10 Essential (primary) hyperten christopher M48.061 Spinal stenosis, lumbar sabine on without neurogenic cristofer F33.1 Major depressive disorder, r ecurrent, moderate Office Visit 12/11/2019 11:00a [place] [facility] Rodriguez Jefferson PA F41.9 Anxiety disorder, unspecified R07.89 Other chest pain R03.0 Elevated blood-pressure read ing, w/o diagnosis of htn Z82.49 Family hx of ischem heart di s and oth dis of the circ sys Assessments Date Code Description Provider 03/07/2020 M48.061 Spinal stenosis, lumbar region w [facility] neurogenic claudicati Vernon Rojas M.D. 12/12/2019 F41.9 Anxiety disorder, unspecified Mi tchellVernon M.D. 12/12/2019 J44.9 Chronic obstructive pulmonary di sease, unspecified Vernon Rojas M.D. 12/12/2019 I10 Essential (primary) hypertension Vernon Rojas M.D. 12/12/2019 M48.061 Spinal stenosis, lumbar region w [facility] neurogenic claudicati Vernon Rojas M.D. 12/12/2019 [...] system Stacy Jefferson PA Plan of Treatment No Information Available Functional Status Description No Information Available Mental Status Description No Information Available Referrals Refer to Reason for Referral Status Appt Date Alex Carr M.D chronic pain and anxiety- eval and rx Sent Pain Management [address] [facility] [address] [phone] [facility] Cardiology intermittent chest pain- eval and rx Sent 02/14/[address] [place] [address] [place], [place] [address] [phone] [facility] Outpatient Psychiatric Services anxiety and depres christopher, panic attacks- eval and rx Closed [address] [place], [place] [address] [phone] Jake Munoz M.D. eval and treat intermittent chest pain. Significant family history of first degree male and female relative with AK less than the age of 55. Sister also recently had AK at young age. Closed Cardiology [address] [place] [address] [phone]
--- OUTSIDE RECORDS SUMMARY | 2020-05-18 10:59 | CCD | Continuity of Care Document ---
Author Author Maria Ines ROJAS M.D. Organization Unknown Address [address] [address] Phone [phone] Problems Active Problems Provider Date Essential hypertension Mraia Isabel Teixeira [employer] Onset: 2009 Insomnia Maria Isabel Teixeira [facility] Onset: 0 Tobacco user Maria Isabel Teixeira [employer] Onset: 0 Peptic reflux disease Maria Isabel Teixeira [facility] Onset: 010 Polyarthropathy Pastora Shahid [facility]-C Onset: [...] Tablets 1 by mouth every day 90tabs eVrnon Rojas M.D. 06/29/2019 Hydrocodone-Acetaminophen 10-325mg Tablets one by mouth three times a day [id number] 90taVernon Tamayo M.D. 11/01/2018 Zolpidem Tartrate 5mg Tablets take one tablet by mouth every night at bedtime as needed for insomnia maximum daily dose = 1 tablet [id number] 30tabs G47.00 Vernon Rojas M.D. 04/2018 Sertraline [...] M.D. 01/03/2015 Injection (SC)/(Im) Injection Pastora Shahid [facility] 12/21/2011 Injection (SC)/(Im) Injection Maria Isabel Teixeira [facility] 01/19/2011 Injection (SC)/(Im) Injection Maria Isabel Teixeira [facility] 10/05/2010 Immunizations CPT Code Status Date Vaccine Lot # [id number] Given 12/30/2017 Influenza Virus Vaccine, Quadrivalent, Slit Virus, Im Use 3Y & Up [id number] 01192 Given 01/18/2017 Influenza Virus Vaccine, Quadrivalent, Slit Virus, Im Use 3Y & Up [id number] 76749 Given 01/16/2016 Influenza Virus Vaccine, Quadrivalent, Slit Virus, Im Use 3Y & Up [id number] Given 01/03/2015 Influenza Virus Vac. Split Virus Individuals 3 Years And Above [id number] 14204 Given 12/21/2011 Influenza Virus Vac. Split Virus Individuals 3 Years And Above [id number] 66553 Given 01/19/2011 Influenza Virus Vac. Split Virus Individuals 3 Years And Above [id number] Vital Signs Date Vital Result Comment 03/07/2020 3:16pm BP Systolic 138 mmHg BP Diastolic 88 mmHg Body Temperature 98.4 F Heart Rate 90 /min Respiratory Rate 18 /min Height 66 inches 5'6" Weight 213.00 lb [place] Body Weight 130 lb BMI (Body Mass Index) 34.4 kg/m2 O2 % BldC Oximetry 97 % 12/12/2019 3:15pm BP Systolic 144 mmHg BP Diastolic 96 mmHg Body Temperature 98.1 F Heart Rate 94 /min Respiratory Rate 18 /min Height 66 inches 5'6" Weight 210.00 lb [place] Body Weight 130 lb BMI (Body Mass Index) 33.9 kg/m2 O2 % BldC Oximetry 94 % Results Test Acquired Date Facility Test Result H/L Range Note Ua W/ Reflex To Culture 12/09/2019 [facility] (Interface) [phone] Appearance, Urine RFX CLEAR Normal Clear Color, Urine RFX COLORLESS Normal Yellow PH,Urine RFX 6.0 units Normal 5.0-9.0 Specific [place] Ur Auto RFX 1.002 Normal 1.002-1.035 Protein, [...] /LPF Normal 0-1 Laboratory test finding 12/09/2019 [facility] (Interface) [phone] iSTAT Troponin 0.00 NG/ML Normal 0.00-0.08 Prothrombin Time/Inr 12/09/2019 [facility]) [phone] Prothrombin Time 11.7 seconds Low 11.8-14.0 Inr 0.84 Normal 1 Laboratory test finding 12/09/2019 [facility] (Interface) [phone] Partial Thromboplastin Time 25.2 seconds Normal 25 .0-38.4 D-Dimer Quant 573.71 ng/ml High <500 Liver Profile 12/09/2019 [facility] (I nterface) [phone] Ast/Sgot 13 U/L Normal 7-37 Alt/SGPT 28 U/L Normal 12-78 Alkaline Phosphatase 108 U/L Normal 45-117 Bilirubin,Total 0.2 mg/dL Normal 0.2-1.0 Bilirubin,Direct < 0.1 mg/dL Normal 0.0-0.2 Total Protein 7.4 GM/DL Normal 6.4-8.2 Albumin 3.8 GM/DL Normal 3.2-5.2 Albumin/Globulin Ratio 1.1 Low 1.2-2.2 Basic Metabolic Profile 12/09/2019 [facility] (Interface) [phone] Glucose, Fasting 114 mg/dL High 70-100 Blood [...] mg/dL Normal 8.5-10.1 Laboratory test finding 12/09/2019 [facility] (Interface) [phone] NT-Pro BNP 213 pg/mL High <125 Lipase 219 U/L Normal 73-393 Thyroid Stimulating Hormone 1.050 uIU/ML Normal 0.358-3.740 Free T4 0.81 ng/dL Normal 0.76-1.46 HCG Serum Qualitative NEGATIVE Normal Negative C Reactive Protein Quantitativ 0.74 mg/dL High 0.00-0.30 CBC With [facility] [phone] White Blood Count 9.7 10 Normal 4.0-10.0 [...] 36.0-66.0 Lymph % 37.2 % Normal 24.0-44.0 Cass % 4.8 % Normal 0.0-5.0 Eos % 4.5 % High 0.0-3.0 Baso % 0.7 % Normal 0.0-1.0 Immature Granulocyte % 0.2 % Normal 0-3.0 Nucleated Red Blood Cell % 0.0 % Normal 0-0 Neutrophils # 5.1 10 Normal 1.5-8.5 Lymph # 3.6 10 Normal 1.5-5.0 Cass # 0.5 10 Normal 0.0-0.8 Eos # 0.4 10 Normal 0.0-0.5 Baso # 0.1 10 Normal 0.0-0.2 Laboratory test finding [facility] [phone] Erythrocyte Sedimentation Rate 13 mm/hr Normal 0 [...] Little GFR Left ESRD GFR <15 on [employer] Procedures Date Code Description Status 12/11/2019 46179 Electrocardiogram Complete Compl eted Medical Devices Description No Information Available Encounters Type Date Location Provider Dx Diagnosis Office Visit 03/07/2020 2:00p [facility] Vernon Rojas M. D. M48.061 Spinal stenosis, lumbar region without neurogenic cristofer Office Visit 12/12/2019 2:45p [facility] Vernon Rojas M. D. F41.9 Anxiety disorder, unspecified J44.9 Chronic obstructive pulmonar y disease, unspecified I10 Essential (primary) hyperten christopher M48.061 Spinal stenosis, lumbar sabine on without neurogenic cristofer F33.1 Major depressive disorder, r ecurrent, moderate Office Visit 12/11/2019 11:00a [facility] Rodriguez [place] F41.9 Anxiety disorder, unspecified R07.89 Other chest pain R03.0 Elevated blood-pressure read ing, w/o diagnosis of htn Z82.49 Family hx of ischem heart di s and oth dis of the circ sys Assessments Date Code Description Provider 03/07/2020 M48.061 Spinal [facility], [facility] neurogenic claudicati Vernon Rojas M.D. 12/12/2019 F41.9 Anxiety disorder, unspecified Mi tchelVernon swanson M.D. 12/12/2019 J44.9 Chronic obstructive pulmonary di sease, unspecified Vernon Rojas M.D. 12/12/2019 I10 Essential (primary) hypertension Vernon Rojas M.D. 12/12/2019 M48.061 Spinal stenosis[facility] neurogenic claudicati Vernon Rojas M.D. 12/12/2019 F33.1 [...] 11:30 am - Vernon Rojas M.D. at [facility] Functional Status Description No Information Available Mental Status Description No Information Available Referrals Refer to Dr Reason for Referral Status Appt Date Alex Carr M.D chronic pain and anxiety- eval and rx Sent [facility] [address] [facility] [address] [phone] [facility] Cardiology intermittent chest pain- eval and rx Sent 02/14/2020 [id number] [address] [facility] [address], [place] [address] [phone] [facility] anxiety and depres christopher, panic attacks- eval and rx Closed [address] [place] [address] [phone] Jake Munoz M.D. eval and treat intermittent chest pain. Significant family history of first degree male and female relative with [place] less than the age of 55. Sister also recently had [place] at young age. Closed Cardiology [address] [place] [phone]
--- OUTSIDE RECORDS SUMMARY | 2020-05-18 11:00 | CCD ---
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 Phone Stacy Jefferson PA Unavailable Unavailable Ronny Stacy PA Unavailable Unavailable Ronny Stacy PA Unavailable Unavailable Barracljenniffer Stacy PA Unavailable Unavailable Barraclough, Stacy PA Unavailable Unavailable Barracljenniffer, Stacy PA Unavailable Unavailable Svetlana Hdz MD Unavailable Unavailable Svetlana Hdz MD Unavailable Unavailable Svetlana Hdz MD Unavailable Unavailable Svetlana Hdz MD Unavailable Unavailable Svetlana Hdz MD Unavailable Unavailable Svetlana Hdz MD Unavailable Unavailable Svetlana Hdz MD Unavailable Unavailable Svetlana Hdz MD Unavailable Unavailable Svetlana Hdz MD Unavailable Unavailable Svetlana Hdz MD Unavailable Unavailable Svetlana Hdz MD Unavailable Unavailable Svetlana Hdz MD Unavailable Unavailable Svetlana Hdz MD Unavailable Unavailable Svetlana Hdz MD Unavailable Unavailable Svetlana Hdz MD Unavailable Unavailable Svetlana Hdz MD Unavailable Unavailable Svetlana Hdz MD Unavailable Unavailable Svetlana Hdz MD Unavailable Unavailable Svetlana Hdz MD Unavailable Unavailable Svetlana Hdz MD Unavailable Unavailable Svetlana Hdz MD Unavailable Unavailable Svetlana Hdz MD Unavailable Unavailable Svetlana Hdz MD Unavailable Unavailable Svetlana Hdz MD Unavailable Unavailable Svetlana Hdz MD Unavailable Unavailable Svetlana Hdz MD Unavailable Unavailable Svetlana Hdz MD Unavailable Unavailable Svetlana Hdz MD Unavailable Unavailable Svetlana Hdz MD Unavailable Unavailable Svetlana Hdz MD Unavailable Unavailable Svetlana Hdz MD Unavailable Unavailable Svetlana Hdz MD Unavailable Unavailable Svetlana Hdz MD Unavailable Unavailable Svetlana Hdz MD Unavailable Unavailable Svetlana Hdz MD Unavailable Unavailable Svetlana Hdz MD Unavailable Unavailable Svetlana Hdz MD Unavailable Unavailable Svetlana Hdz MD Unavailable Unavailable Svetlana Hdz MD Unavailable Unavailable Svetlana Hdz MD Unavailable Unavailable Svetlana Hdz MD Unavailable Unavailable Svetlana Hdz MD Unavailable Unavailable Svetlana Hdz MD Unavailable Unavailable Svetlana Hdz MD Unavailable Unavailable Svetlana Hdz MD Unavailable Unavailable Svetlana Hdz MD Unavailable Unavailable Svetlana Hdz MD Unavailable Unavailable Svetlana Hdz MD Unavailable Unavailable Svetlana Hdz MD Unavailable Unavailable Svetlana Hdz MD Unavailable Unavailable Svetlana Hdz MD Unavailable Unavailable Svetlana Hdz MD Unavailable Unavailable Svetlana Hdz MD Unavailable Unavailable Svetlana Hdz MD Unavailable Unavailable Svetlana Hdz MD Unavailable Unavailable Svetlana Hdz MD Unavailable Unavailable Svetlana Hdz MD Unavailable Unavailable Svetlana Hdz MD Unavailable Unavailable Iona MARRUFO MD Unavailable Unavailable Iona MARRUFO MD Unavailable Unavailable Iona MARRUFO MD Unavailable Unavailable Iona MARRUFO MD Unavailable Unavailable Iona MARRUFO MD Unavailable Unavailable Iona MARRUFO MD Unavailable Unavailable Iona MARRUFO MD Unavailable Unavailable Iona MARRUFO MD Unavailable Unavailable Iona MARRUFO MD Unavailable Unavailable Iona MARRUFO MD Unavailable Unavailable Iona MARRUFO MD Unavailable Unavailable Iona MARRUFO MD Unavailable Unavailable Iona MARRUFO MD Unavailable Unavailable Iona MARRUFO MD Unavailable Unavailable NIRU H MARIAH LEY Unavailable Unavailable Iona MARRUFO MD Unavailable Unavailable NIRU H MARIAH LEY Unavailable Unavailable NIRU H MARIAH LEY Unavailable Unavailable NIRU H MARIAH LEY Unavailable Unavailable NIRU H MARIAH LEY Unavailable Unavailable NIRU H MARIAH LEY Unavailable Unavailable Iona MARRUFO MD Unavailable Unavailable Iona MARRUFO MD Unavailable Unavailable NIRU H MARIAH LEY Unavailable Unavailable Iona MARRUFO MD Unavailable Unavailable Iona MARRUFO MD Unavailable Unavailable Iona MARRUFO MD Unavailable Unavailable Iona MARRUFO MD Unavailable Unavailable Iona MARRUFO MD Unavailable Unavailable Iona MARRUFO MD Unavailable Unavailable Iona MARRUFO MD Unavailable Unavailable Iona MARRUFO MD Unavailable Unavailable Iona MARRUFO MD Unavailable Unavailable Iona MARRUFO MD Unavailable Unavailable Iona MARRUFO MD Unavailable Unavailable Iona MARRUFO MD Unavailable Unavailable Iona MARRUFO MD Unavailable Unavailable Iona MARRUFO MD Unavailable Unavailable Iona MARRUFO MD Unavailable Unavailable Iona MARRUFO MD Unavailable Unavailable Iona MARRUFO MD Unavailable Unavailable Iona MARRUFO MD Unavailable Unavailable Iona MARRUFO MD Unavailable Unavailable Iona MARRUFO MD Unavailable Unavailable Iona MARRUFO MD Unavailable Unavailable Iona MARRUFO MD Unavailable Unavailable Iona MARRUFO MD Unavailable Unavailable Iona MARRUFO MD Unavailable Unavailable Iona MARRUFO MD Unavailable Unavailable Iona MARRUFO MD Unavailable Unavailable Iona MARRUFO MD Unavailable Unavailable Iona MARRUFO MD Unavailable Unavailable Iona MARRUFO MD Unavailable Unavailable Iona MARRUFO MD Unavailable Unavailable Iona MARRUFO MD Unavailable Unavailable Iona MARRUFO MD Unavailable Unavailable Iona MARRUFO MD Unavailable Unavailable Iona MARRUFO MD Unavailable Unavailable Iona MARRUFO MD Unavailable Unavailable Iona MARRUFO MD Unavailable Unavailable Iona MARRUFO MD Unavailable Unavailable Iona MARRUFO MD Unavailable Unavailable Iona MARRUFO MD Unavailable Unavailable Iona MARRUFO MD Unavailable Unavailable Iona MARRUFO MD Unavailable Unavailable Iona MARRUFO MD Unavailable Unavailable Iona MARRUFO MD Unavailable Unavailable Iona MARRUFO MD Unavailable Unavailable Iona MARRUFO MD Unavailable Unavailable Iona MARRUFO MD Unavailable Unavailable Iona MARRUFO MD Unavailable Unavailable Iona MARRUFO MD Unavailable Unavailable Iona MARRUFO MD Unavailable Unavailable Iona MARRUFO MD Unavailable Unavailable Iona MARRUFO MD Unavailable Unavailable Iona MARRUFO MD Unavailable Unavailable Re-disclosure Warning The records that you are about to access may contain information from federally-assisted alcohol or drug abuse programs. If such information is present, then the following federally mandated warning applies: This information has been disclosed to you from records protected by federal confidentiality rules (42 CFR part 2). The federal rules prohibit you from making any further disclosure of this information unless further disclosure is expressly permitted by the written consent of the person to whom it pertains or as otherwise permitted by 42 CFR part 2. A general authorization for the release of medical or other information is NOT sufficient for this purpose. The Federal rules restrict any use of the information to criminally investigate or prosecute any alcohol or drug abuse patient.The records that you are about to access may contain highly sensitive health information, the redisclosure of which is protected by Article 27-F of the [facility] Public Health law. If you continue you may have access to information: Regarding HIV / AIDS; Provided by facilities licensed or operated by the [facility] Office of Mental Health; or Provided by the [facility] Office for People With Developmental Disabilities. If such information is present, then the following [facility] mandated warning applies: This information has been disclosed to you from confidential records which are protected by state law. State law prohibits you from making any further disclosure of this information without the specific written consent of the person to whom it pertains, or as otherwise permitted by law. Any unauthorized further disclosure in violation of state law may result in a fine or longterm sentence or both. A general authorization for the release of medical or other information is NOT sufficient authorization for further disc losure. Allergies and Adverse Reactions Type Description Substance Reaction Status Data Source(s ) Propensity to adverse reactions MORPHINE AND RELATED Morphine And R elated Active [facility] Encounters Encounter Providers Location Date Indications Data Source(s ) Outpatient Attender: MARIAH Diaz Office 01/2020 01:00:00 PM EST [facility] Outpatient Attender: Svetlana DAVIS.JUAN DANIEL-SJP.JUAN DANIEL 01/26 12:00:00 AM EST - 02/14/2020 03:02:49 PM EST [facility] Outpatient Attender: MARIAH Harleywn Office 02:45:00 PM EDT [facility] ([facility] Outpatient Attender: Stacy CARBALLO [facility] 12/11/2019 11:00:00 AM EDT [facility] ([facility]) Outpatient Attender: MARIAH MARRUFO MD [facility] [place] 05/2019 01:30:00 PM EDT [facility] ([facility]ace[facility]) Immunizations Vaccine Date Status Description Data Source(s) INFLUENZA VIRUS VACCINE QUADRIVALENT 2019- (6 MOS AN D UP) 04/30/2020 12:00:00 AM EST completed [facility] Medications Medication Brand Name Start Date Product Form Dose Route Admi nistrative Instructions Pharmacy Instructions Status Indications Reaction Description Data Source(s) 1 mg 05/12/2020 12:00:00 AM EST tablet 45 TAKE 1 TABLET BY MOUTH 3 TIMES A DAY MAXIMUM DAILY DOSE = 3 TABLETS TAKE 1 TABLET BY MOUTH 3 TIMES A DAY MAX IMUM DAILY DOSE = 3 TABLETS SOLD: 05/13/2020 [facility] 10-325 mg 04/28/2020 12:00:00 AM EST tablet 90 TAKE ONE TABLET BY MOUTH THREE TIMES A DAY MAXIMUM DAILY DOSE = 3 TABLETS TAKE ONE TABLET BY MOUTH THREE TIMES A DAY MAXIMUM DAILY DOSE = 3 TABLETS SOLD: 04/29/2020 [facility] buspirone hydrochloride 10 MG Oral Tablet BUSPIRONE HCL 04/26/2020 12:00:00 AM EST tablet 90 TAKE ONE TABLET BY MOUTH THR EE TIMES A DAY TAKE ONE TABLET BY MOUTH THREE TIMES A DAY SOLD: 04/29/2020 [facility] 10 mg 04/18/2020 12:00:00 AM EST tablet 30 TAKE ONE TABLET BY MOUTH AT BEDTIME NEEDED MAXIMUM DAILY DOSE = 1 TABLET TAKE ONE TABLET BY MOUTH AT BEDTIME NEEDED MAXIMUM DAILY DOSE = 1 TABLET SOLD: 04/19/2020 [facility] 25 mg 04/15/2020 12:00:00 AM EST tablet 60 TAKE TWO TABLETS BY MOUTH EVERY DAY TAKE TWO TABLETS BY MOUTH EVERY DAY SOLD: 04/24/2020 [facility] 1 mg 04/14/2020 12:00:00 AM EST tablet 90 TAKE ONE TABLET BY MOUTH THREE TIMES A DAY MAXIMUM DAILY DOSE = 3 TABLETS TAKE ONE TABLET BY MOUTH THREE TIMES A DAY MAXIMUM DAILY DOSE = 3 TABLETS SOLD: 04/14/2020 [facility] 10-325 mg 03/30/2020 12:00:00 AM EST tablet 90 TAKE ONE TABLET BY MOUTH THREE TIMES A DAY MAXIMUM DAILY DOSE = 3 TABLETS TAKE ONE TABLET BY MOUTH THREE TIMES A DAY MAXIMUM DAILY DOSE = 3 TABLETS SOLD: 03/31/2020 [facility] 200-25 mcg/dose 03/20/2020 12:00:00 AM EST blister with salima ce 60 INHALE ONE PUFF BY MOUTH EVERY DAY INHALE ONE PUFF BY MOUTH EVERY DAY SOLD: 03/20/2020 [facility] 200-25 mcg/dose 03/20/2020 12:00:00 AM EST blister with salima ce 60 INHALE ONE PUFF BY MOUTH EVERY DAY INHALE ONE PUFF BY MOUTH EVERY DAY SOLD: 04/24/2020 [facility] 10 mg 03/19/2020 12:00:00 AM EST tablet 30 TAKE 1 TABLET BY MOUTH AT BEDTIME NEEDED MAX DAILY DOSE = 1 TABLET TAKE 1 TABLET BY MOUTH AT BEDTIME NEE DED MAX DAILY DOSE = 1 TABLET SOLD: 03/20/2020 [facility] 1 mg 03/13/2020 12:00:00 AM EST tablet 90 TAKE 1 TABLET [1MG] BY MOUTH THREE TIMES A DAY MAXIMUM DAILY DOSE = 3 TABLETS TAKE 1 TABLET [1MG] BY MOUTH THREE TIMES A DAY MAXIMUM DAILY DOSE = 3 TABLETS SOLD: 03/13/2020 [facility] quetiapine 100 MG Oral Tablet QUETIAPINE FUMARATE 03/04/2020 12: 00:00 AM EST tablet 60 TAKE TWO TABLETS BY MOUTH AT BED TIME TAKE TWO TABLETS BY MOUTH AT BEDTIME SOLD: 04/27/2020 [facility] quetiapine 100 MG Oral Tablet QUETIAPINE FUMARATE 03/04/2020 12: 00:00 AM EST tablet 60 TAKE TWO TABLETS BY MOUTH AT BED TIME TAKE TWO TABLETS BY MOUTH AT BEDTIME SOLD: 03/29/2020 [facility] 10-325 mg 03/02/2020 12:00:00 AM EST tablet 90 TAKE ONE TABLET BY MOUTH THREE TIMES A DAY MAXIMUM DAILY DOSE = 3 TABLETS TAKE ONE TABLET BY MOUTH THREE TIMES A DAY MAXIMUM DAILY DOSE = 3 TABLETS SOLD: 03/02/2020 [facility] buspirone hydrochloride 10 MG Oral Tablet BUSPIRONE HCL 02/27/2020 12:00:00 AM EST tablet 90 TAKE ONE TABLET BY MOUTH THREE TIMES A DAY MAXIMUM DAILY DOSE = 3 TABLETS TAKE ONE TABLET BY MOUTH THREE TIMES A D AY MAXIMUM DAILY DOSE = 3 TABLETS SOLD: 02/27/2020 [facility] buspirone hydrochloride 10 MG Oral Tablet BUSPIRONE HCL 02/27/2020 12:00:00 AM EST tablet 90 TAKE ONE TABLET BY MOUTH THREE TIMES A DAY MAXIMUM DAILY DOSE = 3 TABLETS TAKE ONE TABLET BY MOUTH THREE TIMES A D AY MAXIMUM DAILY DOSE = 3 TABLETS SOLD: 03/29/2020 [facility] 10 mg 02/20/2020 12:00:00 AM EST tablet 30 TAKE ONE TABLET BY MOUTH AT BEDTIME NEEDED MAXIMUM DAILY DOSE = 1 TABLET TAKE ONE TABLET BY MOUTH AT BEDTIME NEEDED MAXIMUM DAILY DOSE = 1 TABLET SOLD: 02/20/2020 [facility] tizanidine 4 MG Oral Tablet TIZANIDINE HCL 02/13/2020 12:00:00 AM EST tablet 90 TAKE 1 TABLET BY MOUTH THREE TIMES A DAY NEEDED MAX IMUM DAILY DOSE = 3 TAKE 1 TABLET BY MOUTH THREE TIMES A DAY NEEDED MAXIMUM DAILY DOSE = 3 SOLD: 04/12/2020 [facility] tizanidine 4 MG Oral Tablet TIZANIDINE HCL 02/13/2020 12:00:00 AM EST tablet 90 TAKE 1 TABLET BY MOUTH THREE TIMES A DAY NEEDED MAX IMUM DAILY DOSE = 3 TAKE 1 TABLET BY MOUTH THREE TIMES A DAY NEEDED MAXIMUM DAILY DOSE = 3 SOLD: 03/20/2020 [facility] tizanidine 4 MG Oral Tablet tiZANidine (ZANAFLEX) 4 MG tablet tiZANidine (ZANAFLEX) 4 MG tablet 02/13/2020 12:00:00 AM EST active as needed [facility] tizanidine 4 MG Oral Tablet TIZANIDINE HCL 02/13/2020 12:00:00 AM EST tablet 90 TAKE 1 TABLET BY MOUTH THREE TIMES A DAY NEEDED MAX IMUM DAILY DOSE = 3 TAKE 1 TABLET BY MOUTH THREE TIMES A DAY NEEDED MAXIMUM DAILY DOSE = 3 SOLD: 05/10/2020 [facility] tizanidine 4 MG Oral Tablet TIZANIDINE HCL 02/13/2020 12:00:00 AM EST tablet 90 TAKE 1 TABLET BY MOUTH THREE TIMES A DAY NEEDED MAX IMUM DAILY DOSE = 3 TAKE 1 TABLET BY MOUTH THREE TIMES A DAY NEEDED MAXIMUM DAILY DOSE = 3 SOLD: 02/15/2020 [facility] gabapentin 600 MG Oral Tablet gabapentin (NEURONTIN) 6 00 MG tablet gabapentin (NEURONTIN) 600 MG tablet 02/12/2020 12:00:00 AM EST active [facility] Alprazolam 1 MG Oral Tablet ALPRAZolam (XANAX) 1 MG ta blet ALPRAZolam (XANAX) 1 MG tablet 02/12/2020 12:00:00 AM EST active TAKE ONE TABLET BY MOUTH THREE TIMES A DAY MAXIMUM DAILY DOSE 3 TABLETS [facility] 1 mg 02/12/2020 12:00:00 AM EST tablet 90 TAKE ONE TABLET BY MOUTH THREE TIMES A DAY MAXIMUM DAILY DOSE = 3 TABLETS TAKE ONE TABLET BY MOUTH THREE TIMES A DAY MAXIMUM DAILY DOSE = 3 TABLETS SOLD: 02/12/2020 [facility] albuterol (PROVENTIL HFA;VENTOLIN HFA) 108 (90 Base) M CG/ACT inhaler 9077-8824-84 02/11/2020 12:00:00 AM EST active [facility] quetiapine 100 MG Oral Tablet QUEtiapine (SEROQUEL) 10 0 MG tablet QUEtiapine (SEROQUEL) 100 MG tablet 02/09/2020 12:00:00 AM EST 200 mg Oral active Take 200 mg by mouth daily [facility] Sertraline 100 MG Oral Tablet sertraline (ZOLOFT) 100 MG tablet sertraline (ZOLOFT) 100 MG tablet 02/09/2020 12:00:00 AM EST aborted TAKE TWO TABLETS BY MOUTH EVERY DAY MAXIMUM DAILY DOSE 2 [facility] 10-325 mg 02/01/2020 12:00:00 AM EST tablet 90 TAKE ONE TABLET BY MOUTH THREE TIMES A DAY MAXIMUM DAILY DOSE = 3 TABLETS TAKE ONE TABLET BY MOUTH THREE TIMES A DAY MAXIMUM DAILY DOSE = 3 TABLETS SOLD: 02/02/2020 [facility] Acetaminophen 325 MG / Hydrocodone Juan C trate 10 MG Oral Tablet HYDROcodone- acetaminophen (NORCO 10-325) 10-325 MG per tablet HYDROcodone-acetaminophen (NORCO 10-325) 10-325 MG per tablet 02/01/2020 12:00:00 AM EST active TAKE ONE TABLET BY MOUTH THREE TIMES A D AY MAXIMUM DAILY DOSE 3 TABLETS [facility] 30 ACTUAT fluticasone furoate 0.2 MG/ACT UAT / vilanterol 0.025 MG/ACTUAT Dry Powder Inhaler [Breo] BREO ELLIPTA 200-25 MCG/INH AEPB BREO ELLIPTA 200-25 MCG/INH AEPB 01/25/2020 12:00:00 AM EDT activ e INHALE ONE PUFF BY MOUTH EVERY DAY [facility] Losartan Potassium 100 MG Oral Tablet losartan (COZAAR ) 100 MG tablet losartan (COZAAR) 100 MG tablet 01/25/2020 12:00:00 AM EDT active TAKE 1 TABLET BY MOUTH EVERY DAY MAXIMUM DAILY DOSE 1 [facility] Omeprazole 40 MG Delayed Release Oral Ca psule omeprazole (PRILOSEC) 40 MG capsule omeprazole (PRILOSEC) 40 MG capsule 01/24/2020 12:00:00 AM EDT 40 mg Oral active Take 40 mg by mouth daily [facility] 40 mg 01/24/2020 12:00:00 AM EDT capsule,delayed release (DR/EC) 60 TAKE ONE CAPSULE BY MOUTH TWICE A DAY TAKE ONE CAPSULE BY MOUTH TWICE A DAY SOLD: 01/29/2020 [facility] 40 mg 01/24/2020 12:00:00 AM EDT capsule,delayed release (DR/EC) 60 TAKE ONE CAPSULE BY MOUTH TWICE A DAY TAKE ONE CAPSULE BY MOUTH TWICE A DAY SOLD: 04/19/2020 [facility] 40 mg 01/24/2020 12:00:00 AM EDT capsule,delayed release (DR/EC) 60 TAKE ONE CAPSULE BY MOUTH TWICE A DAY TAKE ONE CAPSULE BY MOUTH TWICE A DAY SOLD: 03/02/2020 [facility] Zolpidem tartrate 5 MG Oral Tablet zolpidem (AMBIEN) 5 MG tablet zolpidem (AMBIEN) 5 MG tablet 01/22/2020 12:00:00 AM EDT active TAKE 1 TABLET BY MOUTH EVERY EVENING AT BEDTIME NEEDED FOR SLEEP MAX 1TAB/DAY [facility] 100 mg 01/14/2020 12:00:00 AM EDT tablet 60 TAKE TWO TABLETS BY MOUTH EVERY DAY MAXIMUM DAILY DOSE = 2 TAKE TWO TABLETS BY MOUTH EVERY DAY MAXI MUM DAILY DOSE = 2 SOLD: 02/09/2020 [facility] 100 mg 01/14/2020 12:00:00 AM EDT tablet 60 TAKE TWO TABLETS BY MOUTH EVERY DAY MAXIMUM DAILY DOSE = 2 TAKE TWO TABLETS BY MOUTH EVERY DAY MAXI MUM DAILY DOSE = 2 SOLD: 03/13/2020 [facility] 100 mg 01/14/2020 12:00:00 AM EDT tablet 60 TAKE TWO TABLETS BY MOUTH EVERY DAY MAXIMUM DAILY DOSE = 2 TAKE TWO TABLETS BY MOUTH EVERY DAY MAXI MUM DAILY DOSE = 2 SOLD: 01/14/2020 [facility] Alprazolam 0.5 MG Oral Tablet ALPRAZolam (XANAX) 0.5 M G tablet ALPRAZolam (XANAX) 0.5 MG tablet 01/14/2020 12:00:00 AM EDT aborted TAKE 1 TABLET 0.5MG BY MOUTH THREE TIMES A DAY MAXIMUM DAILY DOSE 3 TABLETS [facility] quetiapine 100 MG Oral Tablet QUETIAPINE FUMARATE 01/14/2020 12: 00:00 AM EDT tablet 30 TAKE ONE TABLET BY M OUTH EVERY DAY AT BEDTIME MAXIMUM DAILY DOSE = 1 TAKE ONE TABLET BY MOUTH EVERY DAY AT BEDTIME MAXIMUM DAILY DOSE = 1 SOLD: 02/09/2020 [facility] quetiapine 100 MG Oral Tablet QUETIAPINE FUMARATE 01/14/2020 12: 00:00 AM EDT tablet 30 TAKE ONE TABLET BY M OUTH EVERY DAY AT BEDTIME MAXIMUM DAILY DOSE = 1 TAKE ONE TABLET BY MOUTH EVERY DAY AT BEDTIME MAXIMUM DAILY DOSE = 1 SOLD: 01/14/2020 [facility] 100 mg 01/14/2020 12:00:00 AM EDT tablet 60 TAKE TWO TABLETS BY MOUTH EVERY DAY MAXIMUM DAILY DOSE = 2 TAKE TWO TABLETS BY MOUTH EVERY DAY MAXI MUM DAILY DOSE = 2 SOLD: 04/24/2020 [facility] Alprazolam 0.5 MG Oral Tablet ALPRAZOLAM 01/14/2020 12:00:00 AM EDT ta blet 90 TAKE 1 TABLET [0.5MG] BY MOUTH THREE TIMES A DAY MAXIMUM DAILY DOSE = 3 TABLETS TAKE 1 TABLET [0.5MG] BY MOUTH THREE TIMES A DAY MAXIMUM DAILY DOSE = 3 TABLETS SOLD: 01/14/2020 [facility] buspirone hydrochloride 10 MG Oral Tablet busPIRone (B USPAR) 10 MG tablet busPIRone (BUSPAR) 10 MG tablet 01/10/2020 12:00:00 AM EDT 10 mg O ral active Take 10 mg by mouth as needed [facility] buspirone hydrochloride 10 MG Oral Tablet BUSPIRONE HCL 01/10/2020 12:00:00 AM EDT tablet 90 TAKE ONE TABLET BY MOUTH THR EE TIMES A DAY TAKE ONE TABLET BY MOUTH THREE TIMES A DAY SOLD: 01/29/2020 [facility] Ibuprofen 800 MG Oral Tablet ibuprofen (ADVIL,MOTRIN) 800 MG tablet ibuprofen (ADVIL,MOTRIN) 800 MG tablet 01/07/2020 12:00:00 AM EDT active TAKE 1 TABLET BY MOUTH 3 TIMES A DAY NEEDED MAXIMUM DAILY DOSE 3 [facility] 10-325 mg 01/03/2020 12:00:00 AM EDT tablet 90 TAKE ONE TABLET BY MOUTH THREE TIMES A DAY MAXIMUM DAILY DOSE = THREE TABLETS TAKE ONE TABLET BY MOUTH THREE TIMES A DAY MAXIMUM DAILY DOSE = THREE TABLETS SOLD: 01/04/2020 [facility] 5 mg 12/24/2019 12:00:00 AM EDT tablet 30 TAKE 1 TABLET BY MOUTH EVERY EVENING AT BEDTIME NEEDED FOR SLEEP MAX 1TAB/DAY TAKE 1 TABLET BY MOUTH EVERY EVENING AT BEDTIME NEEDED FOR SLEEP MAX 1TAB/DAY SOLD: 01/23/2020 [facility] 5 mg 12/24/2019 12:00:00 AM EDT tablet 30 TAKE 1 TABLET BY MOUTH EVERY EVENING AT BEDTIME NEEDED FOR SLEEP MAX 1TAB/DAY TAKE 1 TABLET BY MOUTH EVERY EVENING AT BEDTIME NEEDED FOR SLEEP MAX 1TAB/DAY SOLD: 12/25/2019 [facility] 600 mg 12/19/2019 12:00:00 AM EDT tablet 120 TAKE ONE TABLET BY MOUTH FOUR TIMES A DAY TAKE ONE TABLET BY MOUTH FOUR TIMES A DAY SOLD: 12/19/2019 [facility] 600 mg 12/19/2019 12:00:00 AM EDT tablet 120 TAKE ONE TABLET BY MOUTH FOUR TIMES A DAY TAKE ONE TABLET BY MOUTH FOUR TIMES A DAY SOLD: 03/14/2020 [facility] 600 mg 12/19/2019 12:00:00 AM EDT tablet 120 TAKE ONE TABLET BY MOUTH FOUR TIMES A DAY TAKE ONE TABLET BY MOUTH FOUR TIMES A DAY SOLD: 02/15/2020 [facility] 600 mg 12/19/2019 12:00:00 AM EDT tablet 120 TAKE ONE TABLET BY MOUTH FOUR TIMES A DAY TAKE ONE TABLET BY MOUTH FOUR TIMES A DAY SOLD: 01/17/2020 [facility] 600 mg 12/19/2019 12:00:00 AM EDT tablet 120 TAKE ONE TABLET BY MOUTH FOUR TIMES A DAY TAKE ONE TABLET BY MOUTH FOUR TIMES A DAY SOLD: 05/10/2020 [facility] 600 mg 12/19/2019 12:00:00 AM EDT tablet 120 TAKE ONE TABLET BY MOUTH FOUR TIMES A DAY TAKE ONE TABLET BY MOUTH FOUR TIMES A DAY SOLD: 04/12/2020 [facility] Diphenhydramine Hydrochloride 25 MG Oral Tablet [Benadryl] B enadryl Allergy 12/12/2019 12:00:00 AM EDT ORAL active [facility] ([facility] buspirone hydrochloride 10 MG Oral Tablet BUSPIRONE HCL 12/12/2019 12:00:00 AM EDT tablet 90 TAKE ONE TABLET BY MOUTH THREE TIMES A DAY MAXIMUM DAILY DOSE = THREE TABLETS TAKE ONE TABLET BY MOUTH THREE TIMES A D AY MAXIMUM DAILY DOSE = THREE TABLETS SOLD: 12/12/2019 [facility] 90 mcg/actuation 12/12/2019 12:00:00 AM EDT HFA aerosol inha ler 18 INHALE 2 PUFFS BY MOUTH EVERY 4 HOURS NEEDED FOR SHORTNESS OF BREATH INHALE 2 PUFFS BY MOUTH EVERY 4 HOURS NEEDED FOR SHORTNESS OF BREATH SOLD: 12/28/2019 [facility] 90 mcg/actuation 12/12/2019 12:00:00 AM EDT HFA aerosol inha ler 18 INHALE 2 PUFFS BY MOUTH EVERY 4 HOURS NEEDED FOR SHORTNESS OF BREATH INHALE 2 PUFFS BY MOUTH EVERY 4 HOURS NEEDED FOR SHORTNESS OF BREATH SOLD: 01/29/2020 [facility] buspirone hydrochloride 10 MG Oral Tablet Buspirone HCL 12/11/2019 12:00:00 AM EDT ORAL active [facility] ([facility] 10-325 mg 12/06/2019 12:00:00 AM EDT tablet 90 TAKE ONE TABLET BY MOUTH THREE TIMES A DAY MAXIMUM DAILY DOSE = 3 TABLETS TAKE ONE TABLET BY MOUTH THREE TIMES A DAY MAXIMUM DAILY DOSE = 3 TABLETS SOLD: 12/06/2019 [facility] 100 mg 11/26/2019 12:00:00 AM EDT tablet 30 TAKE ONE TABLET BY MOUTH EVERY DAY TAKE ONE TABLET BY MOUTH EVERY DAY SOLD: 12/11/2019 [facility] 10-325 mg 11/06/2019 12:00:00 AM EDT tablet 90 TAKE ONE TABLET BY MOUTH THREE TIMES A DAY MAXIMUM DAILY DOSE = 3 TABLETS TAKE ONE TABLET BY MOUTH THREE TIMES A DAY MAXIMUM DAILY DOSE = 3 TABLETS SOLD: 11/07/2019 [facility] 10-325 mg 10/09/2019 12:00:00 AM EDT tablet 90 TAKE ONE TABLET BY MOUTH THREE TIMES A DAY MAXIMUM DAILY DOSE = 3 TABLETS TAKE ONE TABLET BY MOUTH THREE TIMES A DAY MAXIMUM DAILY DOSE = 3 TABLETS SOLD: 10/09/2019 [facility] 100 mg 09/20/2019 12:00:00 AM EDT tablet 30 TAKE ONE TABLET BY MOUTH EVERY DAY TAKE ONE TABLET BY MOUTH EVERY DAY SOLD: 09/24/2019 [facility] 100 mg 09/20/2019 12:00:00 AM EDT tablet 30 TAKE ONE TABLET BY MOUTH EVERY DAY TAKE ONE TABLET BY MOUTH EVERY DAY SOLD: 10/28/2019 [facility] 10-325 mg 09/09/2019 12:00:00 AM EDT tablet 90 TAKE 1 TABLET BY MOUTH 3 TIMES A DAY MAX DAILY DOSE = 3 TABLETS TAKE 1 TABLET BY MOUTH 3 TIMES A DAY MAX DAILY DOSE = 3 TABLETS SOLD: 09/10/2019 [facility] 750 mg 08/26/2019 12:00:00 AM EDT tablet 15 TAKE ONE TABLET BY MOUTH THREE TIMES A DAY NEEDED FOR SPASMS TAKE ONE TABLET BY MOUTH THREE TIMES A D AY NEEDED FOR SPASMS SOLD: 08/26/2019 [facility] 10-325 mg 08/11/2019 12:00:00 AM EDT tablet 90 TAKE 1 TABLET BY MOUTH THREE TIMES A DAY MAXIMUM DAILY DOSE = 3 TABLETS TAKE 1 TABLET BY MOUTH THREE TIMES A DAY MAXIMUM DAILY DOSE = 3 TABLETS SOLD: 08/12/2019 [facility] 200-25 mcg/dose 08/10/2019 12:00:00 AM EDT blister with salima ce 60 INHALE ONE PUFF BY MOUTH EVERY DAY INHALE ONE PUFF BY MOUTH EVERY DAY SOLD: 11/20/2019 [facility] 200-25 mcg/dose 08/10/2019 12:00:00 AM EDT blister with salima ce 60 INHALE ONE PUFF BY MOUTH EVERY DAY INHALE ONE PUFF BY MOUTH EVERY DAY SOLD: 08/12/2019 [facility] 200-25 mcg/dose 08/10/2019 12:00:00 AM EDT blister with salima ce 60 INHALE ONE PUFF BY MOUTH EVERY DAY INHALE ONE PUFF BY MOUTH EVERY DAY SOLD: 12/28/2019 [facility] 200-25 mcg/dose 08/10/2019 12:00:00 AM EDT blister with salima ce 60 INHALE ONE PUFF BY MOUTH EVERY DAY INHALE ONE PUFF BY MOUTH EVERY DAY SOLD: 01/29/2020 [facility] 100 mg 07/18/2019 12:00:00 AM EDT tablet 30 TAKE ONE TABLET BY MOUTH EVERY DAY TAKE ONE TABLET BY MOUTH EVERY DAY SOLD: 08/24/2019 [facility] 100 mg 07/18/2019 12:00:00 AM EDT tablet 30 TAKE ONE TABLET BY MOUTH EVERY DAY TAKE ONE TABLET BY MOUTH EVERY DAY SOLD: 07/21/2019 [facility] 10-325 mg 07/13/2019 12:00:00 AM EDT tablet 90 TAKE ONE TABLET BY MOUTH THREE TIMES A DAY MAXIMUM DAILY DOSE = 3 TABLETS TAKE ONE TABLET BY MOUTH THREE TIMES A DAY MAXIMUM DAILY DOSE = 3 TABLETS SOLD: 07/14/2019 [facility] 5 mg 07/05/2019 12:00:00 AM EDT tablet 30 TAKE 1 TABLET BY MOUTH EVERY NIGHT AT BEDTIME NEEDED FOR INSOMNIA MAX DAILY DOSE = 1 TABLET TAKE 1 TABLET BY MOUTH EVERY NIGHT AT BEDTIME NEEDED FOR INSOMNIA MAX DAILY DOSE = 1 TABLET SOLD: 08/03/2019 [facility] 5 mg 07/05/2019 12:00:00 AM EDT tablet 30 TAKE 1 TABLET BY MOUTH EVERY NIGHT AT BEDTIME NEEDED FOR INSOMNIA MAX DAILY DOSE = 1 TABLET TAKE 1 TABLET BY MOUTH EVERY NIGHT AT BEDTIME NEEDED FOR INSOMNIA MAX DAILY DOSE = 1 TABLET SOLD: 09/29/2019 [facility] 5 mg 07/05/2019 12:00:00 AM EDT tablet 30 TAKE 1 TABLET BY MOUTH EVERY NIGHT AT BEDTIME NEEDED FOR INSOMNIA MAX DAILY DOSE = 1 TABLET TAKE 1 TABLET BY MOUTH EVERY NIGHT AT BEDTIME NEEDED FOR INSOMNIA MAX DAILY DOSE = 1 TABLET SOLD: 10/28/2019 [facility] 5 mg 07/05/2019 12:00:00 AM EDT tablet 30 TAKE 1 TABLET BY MOUTH EVERY NIGHT AT BEDTIME NEEDED FOR INSOMNIA MAX DAILY DOSE = 1 TABLET TAKE 1 TABLET BY MOUTH EVERY NIGHT AT BEDTIME NEEDED FOR INSOMNIA MAX DAILY DOSE = 1 TABLET SOLD: 07/05/2019 [facility] 5 mg 07/05/2019 12:00:00 AM EDT tablet 30 TAKE 1 TABLET BY MOUTH EVERY NIGHT AT BEDTIME NEEDED FOR INSOMNIA MAX DAILY DOSE = 1 TABLET TAKE 1 TABLET BY MOUTH EVERY NIGHT AT BEDTIME NEEDED FOR INSOMNIA MAX DAILY DOSE = 1 TABLET SOLD: 08/31/2019 [facility] 5 mg 07/05/2019 12:00:00 AM EDT tablet 30 TAKE 1 TABLET BY MOUTH EVERY NIGHT AT BEDTIME NEEDED FOR INSOMNIA MAX DAILY DOSE = 1 TABLET TAKE 1 TABLET BY MOUTH EVERY NIGHT AT BEDTIME NEEDED FOR INSOMNIA MAX DAILY DOSE = 1 TABLET SOLD: 11/26/2019 [facility] 50 mg 06/29/2019 12:00:00 AM EDT tablet 90 TAKE ONE TABLET BY MOUTH EVERY DAY TAKE ONE TABLET BY MOUTH EVERY DAY SOLD: 06/29/2019 [facility] Sertraline 50 MG Oral Tablet [Zoloft] Zoloft 06/29/2019 12:00:00 AM EDT ORAL active [facility] ([facility] 5 mg 06/29/2019 12:00:00 AM EDT tablet 7 TAKE 1TABLET BY MOUTH EVERY EVENING AT BEDTIME NEEDED FOR SLEEP MAXIMUM DAILY DOSE = 1 TABLET TAKE 1TABLET BY MOUTH EVERY EVENING AT BEDTIME NEEDED FOR SLEEP MAXIMUM DAILY DOSE = 1 TABLET SOLD: 06/29/2019 [facility] 10-325 mg 06/15/2019 12:00:00 AM EDT tablet 90 TAKE 1 TABLET BY MOUTH 3 TIMES A DAY MAX DAILY DOSE = 3 TABLETS TAKE 1 TABLET BY MOUTH 3 TIMES A DAY MAX DAILY DOSE = 3 TABLETS SOLD: 06/15/2019 [facility] 5 mg 06/15/2019 12:00:00 AM EDT tablet 7 TAKE 1 TABLET BY MOUTH DAILY AT BEDTIME NEEDED FOR INSOMNIA MAXIMUM DAILY DOSE = 1 TABLET TAKE 1 TABLET BY MOUTH DAILY AT BEDTIME NEEDED FOR INSOMNIA MAXIMUM DAILY DOSE = 1 TABLET SOLD: 06/15/2019 [facility] 100 mg 06/14/2019 12:00:00 AM EDT tablet 30 TAKE 1 TABLET BY MOUTH EVERY DAY MAXIMUM DAILY DOSE = 1 TAKE 1 TABLET BY MOUTH EVERY DAY MAXIMUM DAILY DOSE = 1 SOLD: 10/24/2019 [facility] 100 mg 06/14/2019 12:00:00 AM EDT tablet 30 TAKE 1 TABLET BY MOUTH EVERY DAY MAXIMUM DAILY DOSE = 1 TAKE 1 TABLET BY MOUTH EVERY DAY MAXIMUM DAILY DOSE = 1 SOLD: 12/28/2019 [facility] 100 mg 06/14/2019 12:00:00 AM EDT tablet 30 TAKE 1 TABLET BY MOUTH EVERY DAY MAXIMUM DAILY DOSE = 1 TAKE 1 TABLET BY MOUTH EVERY DAY MAXIMUM DAILY DOSE = 1 SOLD: 08/12/2019 [facility] 100 mg 06/14/2019 12:00:00 AM EDT tablet 30 TAKE 1 TABLET BY MOUTH EVERY DAY MAXIMUM DAILY DOSE = 1 TAKE 1 TABLET BY MOUTH EVERY DAY MAXIMUM DAILY DOSE = 1 SOLD: 05/12/2020 [facility] 100 mg 06/14/2019 12:00:00 AM EDT tablet 30 TAKE 1 TABLET BY MOUTH EVERY DAY MAXIMUM DAILY DOSE = 1 TAKE 1 TABLET BY MOUTH EVERY DAY MAXIMUM DAILY DOSE = 1 SOLD: 01/29/2020 [facility] 100 mg 06/14/2019 12:00:00 AM EDT tablet 30 TAKE 1 TABLET BY MOUTH EVERY DAY MAXIMUM DAILY DOSE = 1 TAKE 1 TABLET BY MOUTH EVERY DAY MAXIMUM DAILY DOSE = 1 SOLD: 07/14/2019 [facility] 100 mg 06/14/2019 12:00:00 AM EDT tablet 30 TAKE 1 TABLET BY MOUTH EVERY DAY MAXIMUM DAILY DOSE = 1 TAKE 1 TABLET BY MOUTH EVERY DAY MAXIMUM DAILY DOSE = 1 SOLD: 11/26/2019 [facility] 100 mg 06/14/2019 12:00:00 AM EDT tablet 30 TAKE 1 TABLET BY MOUTH EVERY DAY MAXIMUM DAILY DOSE = 1 TAKE 1 TABLET BY MOUTH EVERY DAY MAXIMUM DAILY DOSE = 1 SOLD: 09/24/2019 [facility] 100 mg 06/14/2019 12:00:00 AM EDT tablet 30 TAKE 1 TABLET BY MOUTH EVERY DAY MAXIMUM DAILY DOSE = 1 TAKE 1 TABLET BY MOUTH EVERY DAY MAXIMUM DAILY DOSE = 1 SOLD: 04/12/2020 [facility] 100 mg 06/14/2019 12:00:00 AM EDT tablet 30 TAKE 1 TABLET BY MOUTH EVERY DAY MAXIMUM DAILY DOSE = 1 TAKE 1 TABLET BY MOUTH EVERY DAY MAXIMUM DAILY DOSE = 1 SOLD: 06/15/2019 [facility] 100 mg 06/14/2019 12:00:00 AM EDT tablet 30 TAKE 1 TABLET BY MOUTH EVERY DAY MAXIMUM DAILY DOSE = 1 TAKE 1 TABLET BY MOUTH EVERY DAY MAXIMUM DAILY DOSE = 1 SOLD: 03/02/2020 [facility] 10-325 mg 05/19/2019 12:00:00 AM EST tablet 90 TAKE 1 TABLET BY MOUTH THREE TIMES A DAY MAXIMUM DAILY DOSE = 3 TAKE 1 TABLET BY MOUTH THREE TIMES A DAY MAXIMUM DAILY DOSE = 3 SOLD: 05/19/2019 [facility] 100 mg 05/17/2019 12:00:00 AM EST tablet 30 TAKE ONE TABLET BY MOUTH EVERY DAY TAKE ONE TABLET BY MOUTH EVERY DAY SOLD: 06/21/2019 [facility] 100 mg 05/17/2019 12:00:00 AM EST tablet 30 TAKE ONE TABLET BY MOUTH EVERY DAY TAKE ONE TABLET BY MOUTH EVERY DAY SOLD: 05/19/2019 [facility] 800 mg 04/30/2019 12:00:00 AM EST tablet 90 TAKE 1 TABLET BY MOUTH 3 TIMES A DAY NEEDED MAXIMUM DAILY DOSE = 3 TAKE 1 TABLET BY MOUTH 3 TIMES A DAY NEEDED MAXIMUM DAILY DOSE = 3 SOLD: 01/29/2020 [facility] 800 mg 04/30/2019 12:00:00 AM EST tablet 90 TAKE 1 TABLET BY MOUTH 3 TIMES A DAY NEEDED MAXIMUM DAILY DOSE = 3 TAKE 1 TABLET BY MOUTH 3 TIMES A DAY NEEDED MAXIMUM DAILY DOSE = 3 SOLD: 06/12/2019 [facility] 800 mg 04/30/2019 12:00:00 AM EST tablet 90 TAKE 1 TABLET BY MOUTH 3 TIMES A DAY NEEDED MAXIMUM DAILY DOSE = 3 TAKE 1 TABLET BY MOUTH 3 TIMES A DAY NEEDED MAXIMUM DAILY DOSE = 3 SOLD: 03/02/2020 [facility] 800 mg 04/30/2019 12:00:00 AM EST tablet 90 TAKE 1 TABLET BY MOUTH 3 TIMES A DAY NEEDED MAXIMUM DAILY DOSE = 3 TAKE 1 TABLET BY MOUTH 3 TIMES A DAY NEEDED MAXIMUM DAILY DOSE = 3 SOLD: 07/14/2019 [facility] 800 mg 04/30/2019 12:00:00 AM EST tablet 90 TAKE 1 TABLET BY MOUTH 3 TIMES A DAY NEEDED MAXIMUM DAILY DOSE = 3 TAKE 1 TABLET BY MOUTH 3 TIMES A DAY NEEDED MAXIMUM DAILY DOSE = 3 SOLD: 04/24/2020 [facility] 800 mg 04/30/2019 12:00:00 AM EST tablet 90 TAKE 1 TABLET BY MOUTH 3 TIMES A DAY NEEDED MAXIMUM DAILY DOSE = 3 TAKE 1 TABLET BY MOUTH 3 TIMES A DAY NEEDED MAXIMUM DAILY DOSE = 3 SOLD: 11/13/2019 [facility] 800 mg 04/30/2019 12:00:00 AM EST tablet 90 TAKE 1 TABLET BY MOUTH 3 TIMES A DAY NEEDED MAXIMUM DAILY DOSE = 3 TAKE 1 TABLET BY MOUTH 3 TIMES A DAY NEEDED MAXIMUM DAILY DOSE = 3 SOLD: 09/24/2019 [facility] 800 mg 04/30/2019 12:00:00 AM EST tablet 90 TAKE 1 TABLET BY MOUTH 3 TIMES A DAY NEEDED MAXIMUM DAILY DOSE = 3 TAKE 1 TABLET BY MOUTH 3 TIMES A DAY NEEDED MAXIMUM DAILY DOSE = 3 SOLD: 08/12/2019 [facility] 800 mg 04/30/2019 12:00:00 AM EST tablet 90 TAKE 1 TABLET BY MOUTH 3 TIMES A DAY NEEDED MAXIMUM DAILY DOSE = 3 TAKE 1 TABLET BY MOUTH 3 TIMES A DAY NEEDED MAXIMUM DAILY DOSE = 3 SOLD: 05/02/2019 [facility] 800 mg 04/30/2019 12:00:00 AM EST tablet 90 TAKE 1 TABLET BY MOUTH 3 TIMES A DAY NEEDED MAXIMUM DAILY DOSE = 3 TAKE 1 TABLET BY MOUTH 3 TIMES A DAY NEEDED MAXIMUM DAILY DOSE = 3 SOLD: 12/11/2019 [facility] 4 mg 04/25/2019 12:00:00 AM EST tablet 90 TAKE ONE TABLET BY MOUTH THREE TIMES A DAY NEEDED MAX 3TABS/DAY TAKE ONE TABLET BY MOUTH THREE TIMES A D AY NEEDED MAX 3TABS/DAY SOLD: 12/19/2019 [facility] 4 mg 04/25/2019 12:00:00 AM EST tablet 90 TAKE ONE TABLET BY MOUTH THREE TIMES A DAY NEEDED MAX 3TABS/DAY TAKE ONE TABLET BY MOUTH THREE TIMES A D AY NEEDED MAX 3TABS/DAY SOLD: 08/24/2019 [facility] 4 mg 04/25/2019 12:00:00 AM EST tablet 90 TAKE ONE TABLET BY MOUTH THREE TIMES A DAY NEEDED MAX 3TABS/DAY TAKE ONE TABLET BY MOUTH THREE TIMES A D AY NEEDED MAX 3TABS/DAY SOLD: 10/23/2019 [facility] 4 mg 04/25/2019 12:00:00 AM EST tablet 90 TAKE ONE TABLET BY MOUTH THREE TIMES A DAY NEEDED MAX 3TABS/DAY TAKE ONE TABLET BY MOUTH THREE TIMES A D AY NEEDED MAX 3TABS/DAY SOLD: 06/21/2019 [facility] 4 mg 04/25/2019 12:00:00 AM EST tablet 90 TAKE ONE TABLET BY MOUTH THREE TIMES A DAY NEEDED MAX 3TABS/DAY TAKE ONE TABLET BY MOUTH THREE TIMES A D AY NEEDED MAX 3TABS/DAY SOLD: 04/25/2019 [facility] 4 mg 04/25/2019 12:00:00 AM EST tablet 90 TAKE ONE TABLET BY MOUTH THREE TIMES A DAY NEEDED MAX 3TABS/DAY TAKE ONE TABLET BY MOUTH THREE TIMES A D AY NEEDED MAX 3TABS/DAY SOLD: 11/20/2019 [facility] 4 mg 04/25/2019 12:00:00 AM EST tablet 90 TAKE ONE TABLET BY MOUTH THREE TIMES A DAY NEEDED MAX 3TABS/DAY TAKE ONE TABLET BY MOUTH THREE TIMES A D AY NEEDED MAX 3TABS/DAY SOLD: 09/24/2019 [facility] 4 mg 04/25/2019 12:00:00 AM EST tablet 90 TAKE ONE TABLET BY MOUTH THREE TIMES A DAY NEEDED MAX 3TABS/DAY TAKE ONE TABLET BY MOUTH THREE TIMES A D AY NEEDED MAX 3TABS/DAY SOLD: 01/17/2020 [facility] 4 mg 04/25/2019 12:00:00 AM EST tablet 90 TAKE ONE TABLET BY MOUTH THREE TIMES A DAY NEEDED MAX 3TABS/DAY TAKE ONE TABLET BY MOUTH THREE TIMES A D AY NEEDED MAX 3TABS/DAY SOLD: 07/21/2019 [facility] 4 mg 04/25/2019 12:00:00 AM EST tablet 90 TAKE ONE TABLET BY MOUTH THREE TIMES A DAY NEEDED MAX 3TABS/DAY TAKE ONE TABLET BY MOUTH THREE TIMES A D AY NEEDED MAX 3TABS/DAY SOLD: 05/24/2019 [facility] 10-325 mg 04/19/2019 12:00:00 AM EST tablet 90 TAKE ONE TABLET BY MOUTH THREE TIMES A DAY MAXIMUM DAILY DOSE = 3 TABLETS TAKE ONE TABLET BY MOUTH THREE TIMES A DAY MAXIMUM DAILY DOSE = 3 TABLETS SOLD: 04/20/2019 [facility] 40 mg 04/19/2019 12:00:00 AM EST capsule,delayed release (DR/EC) 60 TAKE ONE CAPSULE BY MOUTH TWICE A DAY TAKE ONE CAPSULE BY MOUTH TWICE A DAY SOLD: 07/05/2019 [facility] 40 mg 04/19/2019 12:00:00 AM EST capsule,delayed release (DR/EC) 60 TAKE ONE CAPSULE BY MOUTH TWICE A DAY TAKE ONE CAPSULE BY MOUTH TWICE A DAY SOLD: 06/07/2019 [facility] 40 mg 04/19/2019 12:00:00 AM EST capsule,delayed release (DR/EC) 60 TAKE ONE CAPSULE BY MOUTH TWICE A DAY TAKE ONE CAPSULE BY MOUTH TWICE A DAY SOLD: 11/20/2019 [facility] 40 mg 04/19/2019 12:00:00 AM EST capsule,delayed release (DR/EC) 60 TAKE ONE CAPSULE BY MOUTH TWICE A DAY TAKE ONE CAPSULE BY MOUTH TWICE A DAY SOLD: 12/28/2019 [facility] 40 mg 04/19/2019 12:00:00 AM EST capsule,delayed release (DR/EC) 60 TAKE ONE CAPSULE BY MOUTH TWICE A DAY TAKE ONE CAPSULE BY MOUTH TWICE A DAY SOLD: 09/29/2019 [facility] 40 mg 04/19/2019 12:00:00 AM EST capsule,delayed release (DR/EC) 60 TAKE ONE CAPSULE BY MOUTH TWICE A DAY TAKE ONE CAPSULE BY MOUTH TWICE A DAY SOLD: 08/31/2019 [facility] 40 mg 04/19/2019 12:00:00 AM EST capsule,delayed release (DR/EC) 60 TAKE ONE CAPSULE BY MOUTH TWICE A DAY TAKE ONE CAPSULE BY MOUTH TWICE A DAY SOLD: 08/03/2019 [facility] 40 mg 04/19/2019 12:00:00 AM EST capsule,delayed release (DR/EC) 60 TAKE ONE CAPSULE BY MOUTH TWICE A DAY TAKE ONE CAPSULE BY MOUTH TWICE A DAY SOLD: 04/20/2019 [facility] Amitriptyline Hydrochloride 25 MG Oral Tablet AMITRIPTYLINE HCL 03/26/2019 12:00:00 AM EST tablet 30 TAKE ONE TABLET BY MOUTH EVERY NIGHT AT BEDTIME TAKE ONE TABLET BY MOUTH EVERY NIGHT AT BEDTIME SOLD: 06/07/2019 [facility] Amitriptyline Hydrochloride 25 MG Oral Tablet AMITRIPTYLINE HCL 03/26/2019 12:00:00 AM EST tablet 30 TAKE ONE TABLET BY MOUTH EVERY NIGHT AT BEDTIME TAKE ONE TABLET BY MOUTH EVERY NIGHT AT BEDTIME SOLD: 04/20/2019 [facility] 10-325 mg 03/22/2019 12:00:00 AM EST tablet 90 TAKE ONE TABLET BY MOUTH THREE TIMES A DAY MAXIMUM DAILY DOSE = 3 TABLETS TAKE ONE TABLET BY MOUTH THREE TIMES A DAY MAXIMUM DAILY DOSE = 3 TABLETS SOLD: 03/22/2019 [facility] 200-25 mcg/dose 02/26/2019 12:00:00 AM EST blister with salima ce 60 INHALE ONE PUFF BY MOUTH EVERY DAY INHALE ONE PUFF BY MOUTH EVERY DAY SOLD: 06/07/2019 [facility] 200-25 mcg/dose 02/26/2019 12:00:00 AM EST blister with salima ce 60 INHALE ONE PUFF BY MOUTH EVERY DAY INHALE ONE PUFF BY MOUTH EVERY DAY SOLD: 04/20/2019 [facility] 200-25 mcg/dose 02/26/2019 12:00:00 AM EST blister with salima ce 60 INHALE ONE PUFF BY MOUTH EVERY DAY INHALE ONE PUFF BY MOUTH EVERY DAY SOLD: 07/14/2019 [facility] 100 mg 02/26/2019 12:00:00 AM EST tablet 30 TAKE ONE TABLET BY MOUTH EVERY DAY TAKE ONE TABLET BY MOUTH EVERY DAY SOLD: 04/20/2019 [facility] 600 mg 02/20/2019 12:00:00 AM EST tablet 90 TAKE ONE TABLET BY MOUTH THREE TIMES A DAY TAKE ONE TABLET BY MOUTH THREE TIMES A DAY SOLD: 04/26/2019 [facility] 600 mg 02/20/2019 12:00:00 AM EST tablet 90 TAKE ONE TABLET BY MOUTH THREE TIMES A DAY TAKE ONE TABLET BY MOUTH THREE TIMES A DAY SOLD: 06/21/2019 [facility] 600 mg 02/20/2019 12:00:00 AM EST tablet 90 TAKE ONE TABLET BY MOUTH THREE TIMES A DAY TAKE ONE TABLET BY MOUTH THREE TIMES A DAY SOLD: 08/24/2019 [facility] 600 mg 02/20/2019 12:00:00 AM EST tablet 90 TAKE ONE TABLET BY MOUTH THREE TIMES A DAY TAKE ONE TABLET BY MOUTH THREE TIMES A DAY SOLD: 10/23/2019 [facility] 600 mg 02/20/2019 12:00:00 AM EST tablet 90 TAKE ONE TABLET BY MOUTH THREE TIMES A DAY TAKE ONE TABLET BY MOUTH THREE TIMES A DAY SOLD: 05/24/2019 [facility] 600 mg 02/20/2019 12:00:00 AM EST tablet 90 TAKE ONE TABLET BY MOUTH THREE TIMES A DAY TAKE ONE TABLET BY MOUTH THREE TIMES A DAY SOLD: 07/21/2019 [facility] 600 mg 02/20/2019 12:00:00 AM EST tablet 90 TAKE ONE TABLET BY MOUTH THREE TIMES A DAY TAKE ONE TABLET BY MOUTH THREE TIMES A DAY SOLD: 04/03/2019 [facility] 600 mg 02/20/2019 12:00:00 AM EST tablet 90 TAKE ONE TABLET BY MOUTH THREE TIMES A DAY TAKE ONE TABLET BY MOUTH THREE TIMES A DAY SOLD: 11/20/2019 [facility] 600 mg 02/20/2019 12:00:00 AM EST tablet 90 TAKE ONE TABLET BY MOUTH THREE TIMES A DAY TAKE ONE TABLET BY MOUTH THREE TIMES A DAY SOLD: 09/24/2019 [facility] 5 mg 12/26/2018 12:00:00 AM EDT tablet 30 TAKE 1 TABLET BY MOUTH EVERY NIGHT AT BEDTIME NEEDED FOR INSOMNIA MAXIMUM DAILY DOSE = 1 TABLET TAKE 1 TABLET BY MOUTH EVERY NIGHT AT BEDTIME NEEDED FOR INSOMNIA MAXIMUM DAILY DOSE = 1 TABLET SOLD: 03/22/2019 [facility] 5 mg 12/26/2018 12:00:00 AM EDT tablet 30 TAKE 1 TABLET BY MOUTH EVERY NIGHT AT BEDTIME NEEDED FOR INSOMNIA MAXIMUM DAILY DOSE = 1 TABLET TAKE 1 TABLET BY MOUTH EVERY NIGHT AT BEDTIME NEEDED FOR INSOMNIA MAXIMUM DAILY DOSE = 1 TABLET SOLD: 04/20/2019 [facility] 5 mg 12/26/2018 12:00:00 AM EDT tablet 30 TAKE 1 TABLET BY MOUTH EVERY NIGHT AT BEDTIME NEEDED FOR INSOMNIA MAXIMUM DAILY DOSE = 1 TABLET TAKE 1 TABLET BY MOUTH EVERY NIGHT AT BEDTIME NEEDED FOR INSOMNIA MAXIMUM DAILY DOSE = 1 TABLET SOLD: 05/19/2019 [facility] Losartan Potassium 100 MG Oral Tablet [facility]OTAS[facility] 12:00:00 AM EDT tablet 30 TAKE ONE TABLET BY MOUTH AUGIE MAXIMUM DAILY DOSE = 1 TAKE ONE TABLET BY MOUTH EVERY DAY MAXIMUM DAILY DOSE = 1 SOLD: 05/19/2019 [facility] Losartan Potassium 100 MG Oral Tablet LOSARTAN POTASSIUM 12:00:00 AM EDT tablet 30 TAKE ONE TABLET BY MOUTH AUGIE RY MAXIMUM DAILY DOSE = 1 TAKE ONE TABLET BY MOUTH EVERY DAY MAXIMUM DAILY DOSE = 1 SOLD: 04/11/2019 [facility] 4 mg 07/28/2018 12:00:00 AM EDT tablet 90 TAKE ONE TABLET BY MOUTH THREE TIMES A DAY NEEDED MAXIMUM DAILY DOSE = 3 TAKE ONE TABLET BY MOUTH THREE TIMES A DAY NEEDED MAXIMUM DAILY DOSE = 3 SOLD: 04/03/2019 [facility] Insurance Providers Payer name Policy type / Coverage type Policy ID Covered green party ID Covered green party's relationship to greco Policy Greco Plan Information CHADWICK [id number] SP [id number] MEDICARE [id number] SP [id number] MEDICARE [id number] MEDICARE [id number] Jocelin [id number] MEDICARE C [id number] S [id number] ANSI-Medicare Part B [id number] [employer] COMM[employer]ITY PLAN MCDO [id number] SP [id number] MEDICAID [id number] SP [id number] Medicare C [id number] SELF [id number] Medicare C [id number] SELF [id number] [facility] Comm Plan Medicaid F [id number] SELF [id number] [facility] Comm Plan Medicaid F [id number] SELF [id number] [facility] Comm Plan Medicaid F [id number] SELF [id number] [facility] O [id number] S [id number] [facility] [id number] SP [id number] [facility] Comm Plan Medicaid F [id number] SELF [id number] [facility] Comm Plan Medicaid F [id number] SELF [id number] [facility] UNAVAILABLE C UNAVAILABLE BLUE [employer] [place] PLAN [id number] SP [id number] [facility] BLUE [id number] SP [id number] Problems, Conditions, and Diagnoses Code Display Name Description Problem Type Effective Dates Data Source(s) E66.09 Class 1 obesity due to exces s calories with body mass index (BMI) of 34.0 to 34.9 in adult Class 1 obesity due to excess calories w ith body mass index (BMI) of 34.0 to 34.9 in adult [id number] 02/14/2020 12:00:[address] [facility] I10 Essential hypertension Essential hypertension [id number] 02/14/2020 12:00:00 AM [facility] F17.200 Smoker Smoker [id number] 02/14/2020 12:00:00 AM ES T [facility] R07.89 Chest discomfort Chest discomfort [id number] 02/14/2020 12 :00:00 AM [facility] R07.89 Other chest pain Other chest pain Diagnosis 02/14/2020 02 :10:13 PM [facility] Surgeries/Procedures Procedure Description Date Indications Data Source(s) ECG ROUTINE ECG W/LEAST 12 LDS W/I&R POCT AMB EKG Routine 02/14/2020 2:42 PM EST Chest discomfort 02/14/2020 07:42:00 PM EST Chest discomfort [facility] Chest discomfort Electrocardiogram Complete 12/11/2019 12:00:00 AM EDT [facility] ([facility] BLOOD COUNT COMPLETE AUTO&AUTO DIFRNTL WBC COUNT CBC AND DIFFER ENTIAL Routine 12/09/2019 12/09/2019 12:00:00 AM EDT [facility] THYROID STIMULATING HORMONE TSH TSH Routine 12/09/2019 12/09/2019 12:00:00 AM EDT [facility] BASIC METABOLIC PANEL CALCIUM TOTAL BASIC METABOLIC PANEL Routine 12/09/2019 12/09/2019 12:00:00 AM EDT [facility] Results ID Date Data Source [id number] 12/09/2019 10:07:00 PM EDT [facility] ([facility] Name Value Range Interpretation Code Description Data Aminata rce(s) Supporting Document(s) Appearance, Urine RFX Laboratory test result Nor mal (applies to non-numeric results) [facility] Color, Urine RFX Laboratory test result Normal ( applies to non-numeric results) [facility] ([facility] ) Specific [place] Ur Auto RFX 1.002 1.002-1.035 Nor mal (applies to non-numeric results) [facility] ([facility] ) PH,Urine RFX 6.0 units 5.0-9.0 Normal (applies to non-numeric res ults) [facility] ([facility] Protein, Urine Auto RFX Laboratory test result N ormal (applies to non-numeric results) [facility] ([facility] ) Ketone, Urine Auto RFX Laboratory test result No rmal (applies to non-numeric results) [facility] ([facility] ) Glucose, Urine (Ua) Auto RFX Laboratory test result Normal (applies to non- numeric results) [facility] ([facility] ) Urobilinogen, Urine Auto RFX 0.2 mg/dL 0.0-2.0 Nor mal (applies to non-numeric results) [facility] ([facility] ) Bilirubin, Urine Auto RFX Laboratory test result Normal (applies to non- numeric results) [facility] ([facility] ) Nitrite, Urine Auto RFX Laboratory test result N ormal (applies to non-numeric results) [facility] ([facility] ) Leukocyte Esterase Ur Auto RFX Laboratory test result Normal (applies to non- numeric results) [facility] ([facility] ) Blood, Urine Blood RFX Laboratory test result No rmal (applies to non-numeric results) [facility] ([facility] ) Bacteria, Urine Auto RFX Laboratory test result Normal (applies to non-numeric results) [facility] ([facility] ) WBC, Urine Auto RFX 1 /HPF 0-3 Normal (applies to non-nume jany results) [facility] ([facility] RBC, Urine Auto RFX 0 /HPF 0-3 Normal (applies to non-nume jany results) [facility] ([facility] Hyaline Cast, Urine Auto RFX 0 /LPF 0-1 Normal (appl ies to non-numeric results) [facility] ([facility] Squam Epithelial Cell Ur Aurfx 1 /HPF 0-6 N ormal (applies to non-numeric results) [facility] ([facility] ) ID Date Data Source [id number] 12/09/2019 10:02:00 PM EDT [facility] ([facility] Name Value Range Interpretation Code Description Data Aminata rce(s) Supporting Document(s) Laboratory test finding (navigational concept) 0.00 ng/mL 0 .00-0.08 Normal (applies to non-numeric results) [facility] ID Date Data Source [id number] 12/09/2019 09:25:00 PM EDT [facility] ([facility] Name Value Range Interpretation Code Description Data Aminata rce(s) Supporting Document(s) Erythrocyte sedimentation rate by Westergren method 13 mm/hr 0-20 Normal (applies to non-numeric results) [facility] ID Date Data Source [id number] 12/09/2019 09:25:00 PM EDT [facility] Name Value Range Interpretation Code Description Data Aminata rce(s) Supporting Document(s) White Blood Count 9.7 10 4.0-10.0 Normal (applies to non-numeri c results) [facility] ([facility] Red Blood Count 4.72 10 4.00-5.40 Normal (applies to non-numeric results) [facility] ([facility] Hemoglobin 14.2 g/dL 12.0-15.5 Normal (applies to non-numeric resul ts) [facility] ([facility] Hematocrit 42.5 % 36.0-47.0 Normal (applies to non-numeric resul ts) [facility] ([facility] Mean Corpuscular Volume 90.0 fl 80.0-96.0 Normal ( applies to non-numeric results) [facility] ([facility] ) Red Cell Distribution Width 13.8 % 11.5-14.5 Norm al (applies to non-numeric results) [facility] ([facility] ) Platelet Count, Automated 278 10 150-450 Normal (applies to non-numeric results) [facility] ([facility] ) Mean Corpuscular Hemoglobin 30.1 pg 27.0-33.0 Norm al (applies to non-numeric results) [facility] ([facility] Mean Corpuscular HGB Conc 33.4 g/dL 32.0-36.5 Normal (applies to non-numeric results) [facility] ([facility] [place] % 4.8 % 0.0-5.0 Normal (applies to non-numeric resul ts) [facility] ([facility] Neutrophils % 52.6 % 36.0-66.0 Normal (applies to non-numeric re sults) [facility] ([facility] Lymph % 37.2 % 24.0-44.0 Normal (applies to non-numeric resul ts) [facility] ([facility] Immature Granulocyte % 0.2 % 0-3.0 Normal (applies to non-n umeric results) [facility] [place] Baso % 0.7 % 0.0-1.0 Normal (applies to non-numeric resul ts) [facility] [place] Eos % 4.5 % 0.0-3.0 Above high normal [facility] ([facility] [place] Neutrophils # 5.1 10 1.5-8.5 Normal (applies to non-numeric re sults) [facility] ([facility] Nucleated Red Blood Cell % 0.0 % 0-0 Normal (applies to n on-numeric results) [facility] ([facility] [place] Lymph # 3.6 10 1.5-5.0 Normal (applies to non-numeric resul ts) [facility] ([facility] [place] [place] # 0.5 10 0.0-0.8 Normal (applies to non-numeric resul ts) [facility] ([facility] Baso # 0.1 10 0.0-0.2 Normal (applies to non-numeric resul ts) [facility] ([facility] [place] Eos # 0.4 10 0.0-0.5 Normal (applies to non-numeric resul ts) [facility] ([facility] [place] ID Date Data Source [id number] 12/09/2019 09:25:00 PM EDT [facility] ([facility] Name Value Range Interpretation Code Description Data Aminata rce(s) Supporting Document(s) Lipoprotein lipase [Enzymatic activity/volume] in Serum or P lasma 219 U/L 73-393 Normal (applies to non-numeric results) [facility] ([facility] Natriuretic peptide.B prohormone N-Terminal [Mass/volu me] in Serum or Plasma 213 pg/mL Above high normal [facility] ([facility] Thyrotropin [Units/volume] in Serum or Plasma 1.050 uIU/ML 0. 358-3.740 Normal (applies to non-numeric results) [facility] ([facility] Thyroxine (T4) free [Mass/volume] in Serum or Plasma 0.81 ng/dL 0.76-1.46 Normal (applies to non-numeric results) [facility] ([facility] Choriogonadotropin.beta subunit ( test) [Pres ence] in Serum or Plasma Laboratory test result Normal (applies to non-numeric results) [facility] ([facility] C reactive protein [Mass/volume] in Serum or Plasma by High sensitivity method 0.74 mg/dL 0.00-0.30 Above high normal [facility] ([facility] ID Date Data Source [id number] 12/09/2019 09:25:00 PM EDT [facility] Name Value Range Interpretation Code Description Data Aminata rce(s) Supporting Document(s) Blood Urea Nitrogen 12 mg/dL 7-18 Normal (applies to non-nume jany results) [facility] ([facility] Glucose, Fasting 114 mg/dL 70-100 Above high normal [facility] ([facility] Glomerular Filtration Rate Laboratory test result Normal (applies to non- numeric results) [facility] ([facility] ) <content>Units are mL/min/1.73 m2</content>
<content></content>
<content>Chronic Kidney Disease Staging per NKF:</content>
<content></content>
<content>Stage I & II GFR >=60 Normal to Mildly Decreased</content>
<content>Stage III GFR 30- 59 Moderately Decreased</content>
<content>Stage IV GFR 15-29 Severely Decreased</content>
<content>Stage V GFR <15 Very Little GFR Left</content>
<content>ESRD GFR <15 on SLOOP CAPTAIN</content>
<content></content> Creatinine For GFR 0.97 mg/dL 0.55-1.30 Normal (applies to non -numeric results) [facility] Sodium Level 143 meq/L 136-145 Normal (applies to non-numeric res ults) [facility] ([facility] Carbon Dioxide Level 25 meq/L 21-32 Normal (applies to non-num ifeoma results) [facility] ([facility] Chloride Level 112 meq/L 98-107 Above high normal [facility] ([facility] Potassium Serum 3.7 meq/L 3.5-5.1 Normal (applies to non-numeric results) [facility] ([facility] Anion Gap 6 meq/L 8-16 Below low normal [facility] ( [facility] Calcium Level 9.4 mg/dL 8.5-10.1 Normal (applies to non-numeric re sults) [facility] ([facility] ID Date Data Source [id number] 12/09/2019 09:25:00 PM EDT [facility] ([facility] Name Value Range Interpretation Code Description Data Aminata rce(s) Supporting Document(s) Alt/SGPT 28 U/L 12-78 Normal (applies to non-numeric resul ts) [facility] ([facility] Ast/Sgot 13 U/L 7-37 Normal (applies to non-numeric resul ts) [facility] ([facility] Alkaline Phosphatase 108 U/L 45-117 Normal (applies to non-num ifeoma results) [facility] ([facility] Total Protein 7.4 GM/DL 6.4-8.2 Normal (applies to non-numeric re sults) [facility] ([facility] Bilirubin,Total 0.2 mg/dL 0.2-1.0 Normal (applies to non-numeric results) [facility] ([facility] Bilirubin,Direct Laboratory test result 0.0-0.2 Normal ( applies to non-numeric results) [facility] ([facility] ) Albumin 3.8 GM/DL 3.2-5.2 Normal (applies to non-numeric resul ts) [facility] ([facility] Albumin/Globulin Ratio 1.1 1.2-2.2 Below low normal [facility] ([facility] ID Date Data Source [id number] 12/09/2019 09:25:00 PM EDT [facility] ([facility] Name Value Range Interpretation Code Description Data Aminata rce(s) Supporting Document(s) aPTT in Platelet poor plasma by Coagulation assay 25.2 s 25.0-38.4 Normal (applies to non-numeric results) [facility] ([facility] Fibrin D-dimer FEU [Mass/volume] in Platelet poor plasma 573.71 ng/mL Above high normal [facility] ([facility] ) ID Date Data Source [id number] 12/09/2019 09:25:00 PM EDT [facility] ([facility] Name Value Range Interpretation Code Description Data Aminata rce(s) Supporting Document(s) Inr 0.84 Normal (applies to non-numeric resul ts) [facility] ([facility] THERAPUTIC HUMAN INR VALUES INDICATIONS NORMAL RANGES PROPHYLAXIS/TREATMENT OF: VENOUS THROMBOSIS 2.0-3.0 PULMONARY EMBOLISM 2.0-3.0 PREVENTION OF SYSTEMIC EMBOLISM FROM: TISSUE HEART VALVES 2.0-3.0 ACUTE MYOCARDIAL INFARCTION 2.0-3.0 VALVULAR HEART DISEASE 2.0-3.0 ATRIAL FIBRILLATION 2.0-3.0 MECHANICAL VALVES(HIGH RISK) 2.5-3.5 RECURRENT MYOCARDIAL INFARCTION 2.5-3.5 Prothrombin Time 11.7 s 11.8-14.0 Below low normal [facility] ([facility] ID Date Data Source [id number] 06/29/2019 04:42:00 PM EDT [facility] ([facility] Name Value Range Interpretation Code Description Data Aminata rce(s) Supporting Document(s) Chol 228 mg/dL 0-200 Above high normal [facility] ([facility] CLASSIFICATION CHOLESTEROL FO R ADULTS CHILDREN/ADOLESCENTS* DESIRABLE: <200 MG/DL <170 MG/DL BORDER-LINE HIGH RISK: 200-239 MG/DL 170-199 MG/DL HIGH RISK: >240 MG/DL >200 MG/DL CLASS. FOR PRIMARY LDL CHOL PREVENTION: LDL CHOL-CHILD/ADOLESCENTS* DESIRABLE: <130 MG/DL <110 MG/DL BORDERLINE-HIGH RISK: 130-159 MG/DL 110-129 MG/DL HIGH RISK: >160 MG/DL >130 MG/DL *CHILDREN AND ADOLESCENTS REPRESENTS INDIVIDUALA AGED 2-19 YEARS EXCLUSIVE. CHRONIC KIDNEY DISEASE STAGING PER NKF: MALE GFR INTERPRETATION: 20-49 YRS: >60 mL/min Normal 50-59 YRS: >56 mL/min Normal 60-69 YRS: >49 mL/min Normal 70-79 YRS: >42 mL/min Normal 80 and above >35 mL/min Normal FEMALE GRF INTERPRETATION: 20-39 YRS: >60 mL/min Normal 40-49 YRS: >58 mL/min Normal 50-59 YRS: >51 mL/min Normal 60-69 YRS: >45 mL/min Normal 70-79 YRS: >39 mL/min Normal 80 and above >32 mL/min Normal Cholesterol in HDL [Mass/volume] in Serum or Plasma 49 mg/dL 45-65 [facility] ([facility] CLASSIFICATION CHOLESTEROL FO R ADULTS CHILDREN/ADOLESCENTS* DESIRABLE: <200 MG/DL <170 MG/DL BORDER-LINE HIGH RISK: 200-239 MG/DL 170-199 MG/DL HIGH RISK: >240 MG/DL >200 MG/DL CLASS. FOR PRIMARY LDL CHOL PREVENTION: LDL CHOL-CHILD/ADOLESCENTS* DESIRABLE: <130 MG/DL <110 MG/DL BORDERLINE-HIGH RISK: 130-159 MG/DL 110-129 MG/DL HIGH RISK: >160 MG/DL >130 MG/DL *CHILDREN AND ADOLESCENTS REPRESENTS INDIVIDUALA AGED 2-19 YEARS EXCLUSIVE. CHRONIC KIDNEY DISEASE STAGING PER NKF: MALE GFR INTERPRETATION: 20-49 YRS: >60 mL/min Normal 50-59 YRS: >56 mL/min Normal 60-69 YRS: >49 mL/min Normal 70-79 YRS: >42 mL/min Normal 80 and above >35 mL/min Normal FEMALE GRF INTERPRETATION: 20-39 YRS: >60 mL/min Normal 40-49 YRS: >58 mL/min Normal 50-59 YRS: >51 mL/min Normal 60-69 YRS: >45 mL/min Normal 70-79 YRS: >39 mL/min Normal 80 and above >32 mL/min Normal LDL_C 124 Calc 75-129 [facility] CLASSIFICATION CHOLESTEROL FO R ADULTS CHILDREN/ADOLESCENTS* DESIRABLE: <200 MG/DL <170 MG/DL BORDER-LINE HIGH RISK: 200-239 MG/DL 170-199 MG/DL HIGH RISK: >240 MG/DL >200 MG/DL CLASS. FOR PRIMARY LDL CHOL PREVENTION: LDL CHOL-CHILD/ADOLESCENTS* DESIRABLE: <130 MG/DL <110 MG/DL BORDERLINE-HIGH RISK: 130-159 MG/DL 110-129 MG/DL HIGH RISK: >160 MG/DL >130 MG/DL *CHILDREN AND ADOLESCENTS REPRESENTS INDIVIDUALA AGED 2-19 YEARS EXCLUSIVE. CHRONIC KIDNEY DISEASE STAGING PER NKF: MALE GFR INTERPRETATION: 20-49 YRS: >60 mL/min Normal 50-59 YRS: >56 mL/min Normal 60-69 YRS: >49 mL/min Normal 70-79 YRS: >42 mL/min Normal 80 and above >35 mL/min Normal FEMALE GRF INTERPRETATION: 20-39 YRS: >60 mL/min Normal 40-49 YRS: >58 mL/min Normal 50-59 YRS: >51 mL/min Normal 60-69 YRS: >45 mL/min Normal 70-79 YRS: >39 mL/min Normal 80 and above >32 mL/min Normal Trig 277 mg/dL 40-200 Above high normal [facility] ([facility] CLASSIFICATION CHOLESTEROL FO R ADULTS CHILDREN/ADOLESCENTS* DESIRABLE: <200 MG/DL <170 MG/DL BORDER-LINE HIGH RISK: 200-239 MG/DL 170-199 MG/DL HIGH RISK: >240 MG/DL >200 MG/DL CLASS. FOR PRIMARY LDL CHOL PREVENTION: LDL CHOL-CHILD/ADOLESCENTS* DESIRABLE: <130 MG/DL <110 MG/DL BORDERLINE-HIGH RISK: 130-159 MG/DL 110-129 MG/DL HIGH RISK: >160 MG/DL >130 MG/DL *CHILDREN AND ADOLESCENTS REPRESENTS INDIVIDUALA AGED 2-19 YEARS EXCLUSIVE. CHRONIC KIDNEY DISEASE STAGING PER NKF: MALE GFR INTERPRETATION: 20-49 YRS: >60 mL/min Normal 50-59 YRS: >56 mL/min Normal 60-69 YRS: >49 mL/min Normal 70-79 YRS: >42 mL/min Normal 80 and above >35 mL/min Normal FEMALE GRF INTERPRETATION: 20-39 YRS: >60 mL/min Normal 40-49 YRS: >58 mL/min Normal 50-59 YRS: >51 mL/min Normal 60-69 YRS: >45 mL/min Normal 70-79 YRS: >39 mL/min Normal 80 and above >32 mL/min Normal Cho/HDL Ratio 4.7 CALC [facility] ([facility] CLASSIFICATION CHOLESTEROL FO R ADULTS CHILDREN/ADOLESCENTS* DESIRABLE: <200 MG/DL <170 MG/DL BORDER-LINE HIGH RISK: 200-239 MG/DL 170-199 MG/DL HIGH RISK: >240 MG/DL >200 MG/DL CLASS. FOR PRIMARY LDL CHOL PREVENTION: LDL CHOL-CHILD/ADOLESCENTS* DESIRABLE: <130 MG/DL <110 MG/DL BORDERLINE-HIGH RISK: 130-159 MG/DL 110-129 MG/DL HIGH RISK: >160 MG/DL >130 MG/DL *CHILDREN AND ADOLESCENTS REPRESENTS INDIVIDUALA AGED 2-19 YEARS EXCLUSIVE. CHRONIC KIDNEY DISEASE STAGING PER NKF: MALE GFR INTERPRETATION: 20-49 YRS: >60 mL/min Normal 50-59 YRS: >56 mL/min Normal 60-69 YRS: >49 mL/min Normal 70-79 YRS: >42 mL/min Normal 80 and above >35 mL/min Normal FEMALE GRF INTERPRETATION: 20-39 YRS: >60 mL/min Normal 40-49 YRS: >58 mL/min Normal 50-59 YRS: >51 mL/min Normal 60-69 YRS: >45 mL/min Normal 70-79 YRS: >39 mL/min Normal 80 and above >32 mL/min Normal ID Date Data Source [id number] 06/29/2019 04:42:00 PM EDT WILLI ([facility] Name Value Range Interpretation Code Description Data Aminata rce(s) Supporting Document(s) BUN 15 mg/dL 8-23 [facility] ([facility] CLASSIFICATION CHOLESTEROL FO R ADULTS CHILDREN/ADOLESCENTS* DESIRABLE: <200 MG/DL <170 MG/DL BORDER-LINE HIGH RISK: 200-239 MG/DL 170-199 MG/DL HIGH RISK: >240 MG/DL >200 MG/DL CLASS. FOR PRIMARY LDL CHOL PREVENTION: LDL CHOL-CHILD/ADOLESCENTS* DESIRABLE: <130 MG/DL <110 MG/DL BORDERLINE-HIGH RISK: 130-159 MG/DL 110-129 MG/DL HIGH RISK: >160 MG/DL >130 MG/DL *CHILDREN AND ADOLESCENTS REPRESENTS INDIVIDUALA AGED 2-19 YEARS EXCLUSIVE. CHRONIC KIDNEY DISEASE STAGING PER NKF: MALE GFR INTERPRETATION: 20-49 YRS: >60 mL/min Normal 50-59 YRS: >56 mL/min Normal 60-69 YRS: >49 mL/min Normal 70-79 YRS: >42 mL/min Normal 80 and above >35 mL/min Normal FEMALE GRF INTERPRETATION: 20-39 YRS: >60 mL/min Normal 40-49 YRS: >58 mL/min Normal 50-59 YRS: >51 mL/min Normal 60-69 YRS: >45 mL/min Normal 70-79 YRS: >39 mL/min Normal 80 and above >32 mL/min Normal Glu 89 mg/dL 70-110 [facility] CLASSIFICATION CHOLESTEROL FO R ADULTS CHILDREN/ADOLESCENTS* DESIRABLE: <200 MG/DL <170 MG/DL BORDER-LINE HIGH RISK: 200-239 MG/DL 170-199 MG/DL HIGH RISK: >240 MG/DL >200 MG/DL CLASS. FOR PRIMARY LDL CHOL PREVENTION: LDL CHOL-CHILD/ADOLESCENTS* DESIRABLE: <130 MG/DL <110 MG/DL BORDERLINE-HIGH RISK: 130-159 MG/DL 110-129 MG/DL HIGH RISK: >160 MG/DL >130 MG/DL *CHILDREN AND ADOLESCENTS REPRESENTS INDIVIDUALA AGED 2-19 YEARS EXCLUSIVE. CHRONIC KIDNEY DISEASE STAGING PER NKF: MALE GFR INTERPRETATION: 20-49 YRS: >60 mL/min Normal 50-59 YRS: >56 mL/min Normal 60-69 YRS: >49 mL/min Normal 70-79 YRS: >42 mL/min Normal 80 and above >35 mL/min Normal FEMALE GRF INTERPRETATION: 20-39 YRS: >60 mL/min Normal 40-49 YRS: >58 mL/min Normal 50-59 YRS: >51 mL/min Normal 60-69 YRS: >45 mL/min Normal 70-79 YRS: >39 mL/min Normal 80 and above >32 mL/min Normal Creat 0.8 mg/dL 0.5-1.0 [facility] ([facility] CLASSIFICATION CHOLESTEROL FO R ADULTS CHILDREN/ADOLESCENTS* DESIRABLE: <200 MG/DL <170 MG/DL BORDER-LINE HIGH RISK: 200-239 MG/DL 170-199 MG/DL HIGH RISK: >240 MG/DL >200 MG/DL CLASS. FOR PRIMARY LDL CHOL PREVENTION: LDL CHOL-CHILD/ADOLESCENTS* DESIRABLE: <130 MG/DL <110 MG/DL BORDERLINE-HIGH RISK: 130-159 MG/DL 110-129 MG/DL HIGH RISK: >160 MG/DL >130 MG/DL *CHILDREN AND ADOLESCENTS REPRESENTS INDIVIDUALA AGED 2-19 YEARS EXCLUSIVE. CHRONIC KIDNEY DISEASE STAGING PER NKF: MALE GFR INTERPRETATION: 20-49 YRS: >60 mL/min Normal 50-59 YRS: >56 mL/min Normal 60-69 YRS: >49 mL/min Normal 70-79 YRS: >42 mL/min Normal 80 and above >35 mL/min Normal FEMALE GRF INTERPRETATION: 20-39 YRS: >60 mL/min Normal 40-49 YRS: >58 mL/min Normal 50-59 YRS: >51 mL/min Normal 60-69 YRS: >45 mL/min Normal 70-79 YRS: >39 mL/min Normal 80 and above >32 mL/min Normal K 4.4 mmol/L 3.5-5.1 [facility] ([facility] CLASSIFICATION CHOLESTEROL FO R ADULTS CHILDREN/ADOLESCENTS* DESIRABLE: <200 MG/DL <170 MG/DL BORDER-LINE HIGH RISK: 200-239 MG/DL 170-199 MG/DL HIGH RISK: >240 MG/DL >200 MG/DL CLASS. FOR PRIMARY LDL CHOL PREVENTION: LDL CHOL-CHILD/ADOLESCENTS* DESIRABLE: <130 MG/DL <110 MG/DL BORDERLINE-HIGH RISK: 130-159 MG/DL 110-129 MG/DL HIGH RISK: >160 MG/DL >130 MG/DL *CHILDREN AND ADOLESCENTS REPRESENTS INDIVIDUALA AGED 2-19 YEARS EXCLUSIVE. CHRONIC KIDNEY DISEASE STAGING PER NKF: MALE GFR INTERPRETATION: 20-49 YRS: >60 mL/min Normal 50-59 YRS: >56 mL/min Normal 60-69 YRS: >49 mL/min Normal 70-79 YRS: >42 mL/min Normal 80 and above >35 mL/min Normal FEMALE GRF INTERPRETATION: 20-39 YRS: >60 mL/min Normal 40-49 YRS: >58 mL/min Normal 50-59 YRS: >51 mL/min Normal 60-69 YRS: >45 mL/min Normal 70-79 YRS: >39 mL/min Normal 80 and above >32 mL/min Normal BUN/Creatinine Ratio 19.1 CALC [facility] ([facility] CLASSIFICATION CHOLESTEROL FO R ADULTS CHILDREN/ADOLESCENTS* DESIRABLE: <200 MG/DL <170 MG/DL BORDER-LINE HIGH RISK: 200-239 MG/DL 170-199 MG/DL HIGH RISK: >240 MG/DL >200 MG/DL CLASS. FOR PRIMARY LDL CHOL PREVENTION: LDL CHOL-CHILD/ADOLESCENTS* DESIRABLE: <130 MG/DL <110 MG/DL BORDERLINE-HIGH RISK: 130-159 MG/DL 110-129 MG/DL HIGH RISK: >160 MG/DL >130 MG/DL *CHILDREN AND ADOLESCENTS REPRESENTS INDIVIDUALA AGED 2-19 YEARS EXCLUSIVE. CHRONIC KIDNEY DISEASE STAGING PER NKF: MALE GFR INTERPRETATION: 20-49 YRS: >60 mL/min Normal 50-59 YRS: >56 mL/min Normal 60-69 YRS: >49 mL/min Normal 70-79 YRS: >42 mL/min Normal 80 and above >35 mL/min Normal FEMALE GRF INTERPRETATION: 20-39 YRS: >60 mL/min Normal 40-49 YRS: >58 mL/min Normal 50-59 YRS: >51 mL/min Normal 60-69 YRS: >45 mL/min Normal 70-79 YRS: >39 mL/min Normal 80 and above >32 mL/min Normal Na 135 mmol/L 136-145 Below low normal [facility] ( [facility] CLASSIFICATION CHOLESTEROL FO R ADULTS CHILDREN/ADOLESCENTS* DESIRABLE: <200 MG/DL <170 MG/DL BORDER-LINE HIGH RISK: 200-239 MG/DL 170-199 MG/DL HIGH RISK: >240 MG/DL >200 MG/DL CLASS. FOR PRIMARY LDL CHOL PREVENTION: LDL CHOL-CHILD/ADOLESCENTS* DESIRABLE: <130 MG/DL <110 MG/DL BORDERLINE-HIGH RISK: 130-159 MG/DL 110-129 MG/DL HIGH RISK: >160 MG/DL >130 MG/DL *CHILDREN AND ADOLESCENTS REPRESENTS INDIVIDUALA AGED 2-19 YEARS EXCLUSIVE. CHRONIC KIDNEY DISEASE STAGING PER NKF: MALE GFR INTERPRETATION: 20-49 YRS: >60 mL/min Normal 50-59 YRS: >56 mL/min Normal 60-69 YRS: >49 mL/min Normal 70-79 YRS: >42 mL/min Normal 80 and above >35 mL/min Normal FEMALE GRF INTERPRETATION: 20-39 YRS: >60 mL/min Normal 40-49 YRS: >58 mL/min Normal 50-59 YRS: >51 mL/min Normal 60-69 YRS: >45 mL/min Normal 70-79 YRS: >39 mL/min Normal 80 and above >32 mL/min Normal Co2 19.4 mmol/L 22.0-29.0 Below low normal [facility] ([facility] CLASSIFICATION CHOLESTEROL FO R ADULTS CHILDREN/ADOLESCENTS* DESIRABLE: <200 MG/DL <170 MG/DL BORDER-LINE HIGH RISK: 200-239 MG/DL 170-199 MG/DL HIGH RISK: >240 MG/DL >200 MG/DL CLASS. FOR PRIMARY LDL CHOL PREVENTION: LDL CHOL-CHILD/ADOLESCENTS* DESIRABLE: <130 MG/DL <110 MG/DL BORDERLINE-HIGH RISK: 130-159 MG/DL 110-129 MG/DL HIGH RISK: >160 MG/DL >130 MG/DL *CHILDREN AND ADOLESCENTS REPRESENTS INDIVIDUALA AGED 2-19 YEARS EXCLUSIVE. CHRONIC KIDNEY DISEASE STAGING PER NKF: MALE GFR INTERPRETATION: 20-49 YRS: >60 mL/min Normal 50-59 YRS: >56 mL/min Normal 60-69 YRS: >49 mL/min Normal 70-79 YRS: >42 mL/min Normal 80 and above >35 mL/min Normal FEMALE GRF INTERPRETATION: 20-39 YRS: >60 mL/min Normal 40-49 YRS: >58 mL/min Normal 50-59 YRS: >51 mL/min Normal 60-69 YRS: >45 mL/min Normal 70-79 YRS: >39 mL/min Normal 80 and above >32 mL/min Normal CA 10.0 mg/dL 8.6-10.2 [facility] ([facility] CLASSIFICATION CHOLESTEROL FO R ADULTS CHILDREN/ADOLESCENTS* DESIRABLE: <200 MG/DL <170 MG/DL BORDER-LINE HIGH RISK: 200-239 MG/DL 170-199 MG/DL HIGH RISK: >240 MG/DL >200 MG/DL CLASS. FOR PRIMARY LDL CHOL PREVENTION: LDL CHOL-CHILD/ADOLESCENTS* DESIRABLE: <130 MG/DL <110 MG/DL BORDERLINE-HIGH RISK: 130-159 MG/DL 110-129 MG/DL HIGH RISK: >160 MG/DL >130 MG/DL *CHILDREN AND ADOLESCENTS REPRESENTS INDIVIDUALA AGED 2-19 YEARS EXCLUSIVE. CHRONIC KIDNEY DISEASE STAGING PER NKF: MALE GFR INTERPRETATION: 20-49 YRS: >60 mL/min Normal 50-59 YRS: >56 mL/min Normal 60-69 YRS: >49 mL/min Normal 70-79 YRS: >42 mL/min Normal 80 and above >35 mL/min Normal FEMALE GRF INTERPRETATION: 20-39 YRS: >60 mL/min Normal 40-49 YRS: >58 mL/min Normal 50-59 YRS: >51 mL/min Normal 60-69 YRS: >45 mL/min Normal 70-79 YRS: >39 mL/min Normal 80 and above >32 mL/min Normal CL 98.9 mmol/L 98.0-107.0 [facility] ([facility] CLASSIFICATION CHOLESTEROL FO R ADULTS CHILDREN/ADOLESCENTS* DESIRABLE: <200 MG/DL <170 MG/DL BORDER-LINE HIGH RISK: 200-239 MG/DL 170-199 MG/DL HIGH RISK: >240 MG/DL >200 MG/DL CLASS. FOR PRIMARY LDL CHOL PREVENTION: LDL CHOL-CHILD/ADOLESCENTS* DESIRABLE: <130 MG/DL <110 MG/DL BORDERLINE-HIGH RISK: 130-159 MG/DL 110-129 MG/DL HIGH RISK: >160 MG/DL >130 MG/DL *CHILDREN AND ADOLESCENTS REPRESENTS INDIVIDUALA AGED 2-19 YEARS EXCLUSIVE. CHRONIC KIDNEY DISEASE STAGING PER NKF: MALE GFR INTERPRETATION: 20-49 YRS: >60 mL/min Normal 50-59 YRS: >56 mL/min Normal 60-69 YRS: >49 mL/min Normal 70-79 YRS: >42 mL/min Normal 80 and above >35 mL/min Normal FEMALE GRF INTERPRETATION: 20-39 YRS: >60 mL/min Normal 40-49 YRS: >58 mL/min Normal 50-59 YRS: >51 mL/min Normal 60-69 YRS: >45 mL/min Normal 70-79 YRS: >39 mL/min Normal 80 and above >32 mL/min Normal TP 7.3 g/dL 6.6-8.7 [facility] ([facility] CLASSIFICATION CHOLESTEROL FO R ADULTS CHILDREN/ADOLESCENTS* DESIRABLE: <200 MG/DL <170 MG/DL BORDER-LINE HIGH RISK: 200-239 MG/DL 170-199 MG/DL HIGH RISK: >240 MG/DL >200 MG/DL CLASS. FOR PRIMARY LDL CHOL PREVENTION: LDL CHOL-CHILD/ADOLESCENTS* DESIRABLE: <130 MG/DL <110 MG/DL BORDERLINE-HIGH RISK: 130-159 MG/DL 110-129 MG/DL HIGH RISK: >160 MG/DL >130 MG/DL *CHILDREN AND ADOLESCENTS REPRESENTS INDIVIDUALA AGED 2-19 YEARS EXCLUSIVE. CHRONIC KIDNEY DISEASE STAGING PER NKF: MALE GFR INTERPRETATION: 20-49 YRS: >60 mL/min Normal 50-59 YRS: >56 mL/min Normal 60-69 YRS: >49 mL/min Normal 70-79 YRS: >42 mL/min Normal 80 and above >35 mL/min Normal FEMALE GRF INTERPRETATION: 20-39 YRS: >60 mL/min Normal 40-49 YRS: >58 mL/min Normal 50-59 YRS: >51 mL/min Normal 60-69 YRS: >45 mL/min Normal 70-79 YRS: >39 mL/min Normal 80 and above >32 mL/min Normal Alb 4.7 g/dL 3.4-4.8 [facility] ([facility] CLASSIFICATION CHOLESTEROL FO R ADULTS CHILDREN/ADOLESCENTS* DESIRABLE: <200 MG/DL <170 MG/DL BORDER-LINE HIGH RISK: 200-239 MG/DL 170-199 MG/DL HIGH RISK: >240 MG/DL >200 MG/DL CLASS. FOR PRIMARY LDL CHOL PREVENTION: LDL CHOL-CHILD/ADOLESCENTS* DESIRABLE: <130 MG/DL <110 MG/DL BORDERLINE-HIGH RISK: 130-159 MG/DL 110-129 MG/DL HIGH RISK: >160 MG/DL >130 MG/DL *CHILDREN AND ADOLESCENTS REPRESENTS INDIVIDUALA AGED 2-19 YEARS EXCLUSIVE. CHRONIC KIDNEY DISEASE STAGING PER NKF: MALE GFR INTERPRETATION: 20-49 YRS: >60 mL/min Normal 50-59 YRS: >56 mL/min Normal 60-69 YRS: >49 mL/min Normal 70-79 YRS: >42 mL/min Normal 80 and above >35 mL/min Normal FEMALE GRF INTERPRETATION: 20-39 YRS: >60 mL/min Normal 40-49 YRS: >58 mL/min Normal 50-59 YRS: >51 mL/min Normal 60-69 YRS: >45 mL/min Normal 70-79 YRS: >39 mL/min Normal 80 and above >32 mL/min Normal A/G Ratio 1.9 [facility] ([facility] CLASSIFICATION CHOLESTEROL FO R ADULTS CHILDREN/ADOLESCENTS* DESIRABLE: <200 MG/DL <170 MG/DL BORDER-LINE HIGH RISK: 200-239 MG/DL 170-199 MG/DL HIGH RISK: >240 MG/DL >200 MG/DL CLASS. FOR PRIMARY LDL CHOL PREVENTION: LDL CHOL-CHILD/ADOLESCENTS* DESIRABLE: <130 MG/DL <110 MG/DL BORDERLINE-HIGH RISK: 130-159 MG/DL 110-129 MG/DL HIGH RISK: >160 MG/DL >130 MG/DL *CHILDREN AND ADOLESCENTS REPRESENTS INDIVIDUALA AGED 2-19 YEARS EXCLUSIVE. CHRONIC KIDNEY DISEASE STAGING PER NKF: MALE GFR INTERPRETATION: 20-49 YRS: >60 mL/min Normal 50-59 YRS: >56 mL/min Normal 60-69 YRS: >49 mL/min Normal 70-79 YRS: >42 mL/min Normal 80 and above >35 mL/min Normal FEMALE GRF INTERPRETATION: 20-39 YRS: >60 mL/min Normal 40-49 YRS: >58 mL/min Normal 50-59 YRS: >51 mL/min Normal 60-69 YRS: >45 mL/min Normal 70-79 YRS: >39 mL/min Normal 80 and above >32 mL/min Normal Alt (SGPT) 15 U/L 0-41 [facility] CLASSIFICATION CHOLESTEROL FO R ADULTS CHILDREN/ADOLESCENTS* DESIRABLE: <200 MG/DL <170 MG/DL BORDER-LINE HIGH RISK: 200-239 MG/DL 170-199 MG/DL HIGH RISK: >240 MG/DL >200 MG/DL CLASS. FOR PRIMARY LDL CHOL PREVENTION: LDL CHOL-CHILD/ADOLESCENTS* DESIRABLE: <130 MG/DL <110 MG/DL BORDERLINE-HIGH RISK: 130-159 MG/DL 110-129 MG/DL HIGH RISK: >160 MG/DL >130 MG/DL *CHILDREN AND ADOLESCENTS REPRESENTS INDIVIDUALA AGED 2-19 YEARS EXCLUSIVE. CHRONIC KIDNEY DISEASE STAGING PER NKF: MALE GFR INTERPRETATION: 20-49 YRS: >60 mL/min Normal 50-59 YRS: >56 mL/min Normal 60-69 YRS: >49 mL/min Normal 70-79 YRS: >42 mL/min Normal 80 and above >35 mL/min Normal FEMALE GRF INTERPRETATION: 20-39 YRS: >60 mL/min Normal 40-49 YRS: >58 mL/min Normal 50-59 YRS: >51 mL/min Normal 60-69 YRS: >45 mL/min Normal 70-79 YRS: >39 mL/min Normal 80 and above >32 mL/min Normal Globulin 2.5 CALC MEDENT ([facility] CLASSIFICATION CHOLESTEROL FO R ADULTS CHILDREN/ADOLESCENTS* DESIRABLE: <200 MG/DL <170 MG/DL BORDER-LINE HIGH RISK: 200-239 MG/DL 170-199 MG/DL HIGH RISK: >240 MG/DL >200 MG/DL CLASS. FOR PRIMARY LDL CHOL PREVENTION: LDL CHOL-CHILD/ADOLESCENTS* DESIRABLE: <130 MG/DL <110 MG/DL BORDERLINE-HIGH RISK: 130-159 MG/DL 110-129 MG/DL HIGH RISK: >160 MG/DL >130 MG/DL *CHILDREN AND ADOLESCENTS REPRESENTS INDIVIDUALA AGED 2-19 YEARS EXCLUSIVE. CHRONIC KIDNEY DISEASE STAGING PER NKF: MALE GFR INTERPRETATION: 20-49 YRS: >60 mL/min Normal 50-59 YRS: >56 mL/min Normal 60-69 YRS: >49 mL/min Normal 70-79 YRS: >42 mL/min Normal 80 and above >35 mL/min Normal FEMALE GRF INTERPRETATION: 20-39 YRS: >60 mL/min Normal 40-49 YRS: >58 mL/min Normal 50-59 YRS: >51 mL/min Normal 60-69 YRS: >45 mL/min Normal 70-79 YRS: >39 mL/min Normal 80 and above >32 mL/min Normal Alp 89.9 U/L 35-129 [facility] ([facility] CLASSIFICATION CHOLESTEROL FO R ADULTS CHILDREN/ADOLESCENTS* DESIRABLE: <200 MG/DL <170 MG/DL BORDER-LINE HIGH RISK: 200-239 MG/DL 170-199 MG/DL HIGH RISK: >240 MG/DL >200 MG/DL CLASS. FOR PRIMARY LDL CHOL PREVENTION: LDL CHOL-CHILD/ADOLESCENTS* DESIRABLE: <130 MG/DL <110 MG/DL BORDERLINE-HIGH RISK: 130-159 MG/DL 110-129 MG/DL HIGH RISK: >160 MG/DL >130 MG/DL *CHILDREN AND ADOLESCENTS REPRESENTS INDIVIDUALA AGED 2-19 YEARS EXCLUSIVE. CHRONIC KIDNEY DISEASE STAGING PER NKF: MALE GFR INTERPRETATION: 20-49 YRS: >60 mL/min Normal 50-59 YRS: >56 mL/min Normal 60-69 YRS: >49 mL/min Normal 70-79 YRS: >42 mL/min Normal 80 and above >35 mL/min Normal FEMALE GRF INTERPRETATION: 20-39 YRS: >60 mL/min Normal 40-49 YRS: >58 mL/min Normal 50-59 YRS: >51 mL/min Normal 60-69 YRS: >45 mL/min Normal 70-79 YRS: >39 mL/min Normal 80 and above >32 mL/min Normal Osmolality-Calculated 270.8 CALC MED ENT ([facility] CLASSIFICATION CHOLESTEROL FO R ADULTS CHILDREN/ADOLESCENTS* DESIRABLE: <200 MG/DL <170 MG/DL BORDER-LINE HIGH RISK: 200-239 MG/DL 170-199 MG/DL HIGH RISK: >240 MG/DL >200 MG/DL CLASS. FOR PRIMARY LDL CHOL PREVENTION: LDL CHOL-CHILD/ADOLESCENTS* DESIRABLE: <130 MG/DL <110 MG/DL BORDERLINE-HIGH RISK: 130-159 MG/DL 110-129 MG/DL HIGH RISK: >160 MG/DL >130 MG/DL *CHILDREN AND ADOLESCENTS REPRESENTS INDIVIDUALA AGED 2-19 YEARS EXCLUSIVE. CHRONIC KIDNEY DISEASE STAGING PER NKF: MALE GFR INTERPRETATION: 20-49 YRS: >60 mL/min Normal 50-59 YRS: >56 mL/min Normal 60-69 YRS: >49 mL/min Normal 70-79 YRS: >42 mL/min Normal 80 and above >35 mL/min Normal FEMALE GRF INTERPRETATION: 20-39 YRS: >60 mL/min Normal 40-49 YRS: >58 mL/min Normal 50-59 YRS: >51 mL/min Normal 60-69 YRS: >45 mL/min Normal 70-79 YRS: >39 mL/min Normal 80 and above >32 mL/min Normal Tbili 0.20 mg/dL 0.0-1.2 MED[facility] ([facility] CLASSIFICATION CHOLESTEROL FO R ADULTS CHILDREN/ADOLESCENTS* DESIRABLE: <200 MG/DL <170 MG/DL BORDER-LINE HIGH RISK: 200-239 MG/DL 170-199 MG/DL HIGH RISK: >240 MG/DL >200 MG/DL CLASS. FOR PRIMARY LDL CHOL PREVENTION: LDL CHOL-CHILD/ADOLESCENTS* DESIRABLE: <130 MG/DL <110 MG/DL BORDERLINE-HIGH RISK: 130-159 MG/DL 110-129 MG/DL HIGH RISK: >160 MG/DL >130 MG/DL *CHILDREN AND ADOLESCENTS REPRESENTS INDIVIDUALA AGED 2-19 YEARS EXCLUSIVE. CHRONIC KIDNEY DISEASE STAGING PER NKF: MALE GFR INTERPRETATION: 20-49 YRS: >60 mL/min Normal 50-59 YRS: >56 mL/min Normal 60-69 YRS: >49 mL/min Normal 70-79 YRS: >42 mL/min Normal 80 and above >35 mL/min Normal FEMALE GRF INTERPRETATION: 20-39 YRS: >60 mL/min Normal 40-49 YRS: >58 mL/min Normal 50-59 YRS: >51 mL/min Normal 60-69 YRS: >45 mL/min Normal 70-79 YRS: >39 mL/min Normal 80 and above >32 mL/min Normal Anion Gap 21 mmol/L [facility] ([facility] CLASSIFICATION CHOLESTEROL FO R ADULTS CHILDREN/ADOLESCENTS* DESIRABLE: <200 MG/DL <170 MG/DL BORDER-LINE HIGH RISK: 200-239 MG/DL 170-199 MG/DL HIGH RISK: >240 MG/DL >200 MG/DL CLASS. FOR PRIMARY LDL CHOL PREVENTION: LDL CHOL-CHILD/ADOLESCENTS* DESIRABLE: <130 MG/DL <110 MG/DL BORDERLINE-HIGH RISK: 130-159 MG/DL 110-129 MG/DL HIGH RISK: >160 MG/DL >130 MG/DL *CHILDREN AND ADOLESCENTS REPRESENTS INDIVIDUALA AGED 2-19 YEARS EXCLUSIVE. CHRONIC KIDNEY DISEASE STAGING PER NKF: MALE GFR INTERPRETATION: 20-49 YRS: >60 mL/min Normal 50-59 YRS: >56 mL/min Normal 60-69 YRS: >49 mL/min Normal 70-79 YRS: >42 mL/min Normal 80 and above >35 mL/min Normal FEMALE GRF INTERPRETATION: 20-39 YRS: >60 mL/min Normal 40-49 YRS: >58 mL/min Normal 50-59 YRS: >51 mL/min Normal 60-69 YRS: >45 mL/min Normal 70-79 YRS: >39 mL/min Normal 80 and above >32 mL/min Normal Ast (Sgot) 15 U/L 0-40 [facility] ([facility] CLASSIFICATION CHOLESTEROL FO R ADULTS CHILDREN/ADOLESCENTS* DESIRABLE: <200 MG/DL <170 MG/DL BORDER-LINE HIGH RISK: 200-239 MG/DL 170-199 MG/DL HIGH RISK: >240 MG/DL >200 MG/DL CLASS. FOR PRIMARY LDL CHOL PREVENTION: LDL CHOL-CHILD/ADOLESCENTS* DESIRABLE: <130 MG/DL <110 MG/DL BORDERLINE-HIGH RISK: 130-159 MG/DL 110-129 MG/DL HIGH RISK: >160 MG/DL >130 MG/DL *CHILDREN AND ADOLESCENTS REPRESENTS INDIVIDUALA AGED 2-19 YEARS EXCLUSIVE. CHRONIC KIDNEY DISEASE STAGING PER NKF: MALE GFR INTERPRETATION: 20-49 YRS: >60 mL/min Normal 50-59 YRS: >56 mL/min Normal 60-69 YRS: >49 mL/min Normal 70-79 YRS: >42 mL/min Normal 80 and above >35 mL/min Normal FEMALE GRF INTERPRETATION: 20-39 YRS: >60 mL/min Normal 40-49 YRS: >58 mL/min Normal 50-59 YRS: >51 mL/min Normal 60-69 YRS: >45 mL/min Normal 70-79 YRS: >39 mL/min Normal 80 and above >32 mL/min Normal eGFR Non-Afr. [place] 87 # MEDENT ([facility] CLASSIFICATION CHOLESTEROL FO R ADULTS CHILDREN/ADOLESCENTS* DESIRABLE: <200 MG/DL <170 MG/DL BORDER-LINE HIGH RISK: 200-239 MG/DL 170-199 MG/DL HIGH RISK: >240 MG/DL >200 MG/DL CLASS. FOR PRIMARY LDL CHOL PREVENTION: LDL CHOL-CHILD/ADOLESCENTS* DESIRABLE: <130 MG/DL <110 MG/DL BORDERLINE-HIGH RISK: 130-159 MG/DL 110-129 MG/DL HIGH RISK: >160 MG/DL >130 MG/DL *CHILDREN AND ADOLESCENTS REPRESENTS INDIVIDUALA AGED 2-19 YEARS EXCLUSIVE. CHRONIC KIDNEY DISEASE STAGING PER NKF: MALE GFR INTERPRETATION: 20-49 YRS: >60 mL/min Normal 50-59 YRS: >56 mL/min Normal 60-69 YRS: >49 mL/min Normal 70-79 YRS: >42 mL/min Normal 80 and above >35 mL/min Normal FEMALE GRF INTERPRETATION: 20-39 YRS: >60 mL/min Normal 40-49 YRS: >58 mL/min Normal 50-59 YRS: >51 mL/min Normal 60-69 YRS: >45 mL/min Normal 70-79 YRS: >39 mL/min Normal 80 and above >32 mL/min Normal eGFR 100 # MED[facility] ( [facility] CLASSIFICATION CHOLESTEROL FO R ADULTS CHILDREN/ADOLESCENTS* DESIRABLE: <200 MG/DL <170 MG/DL BORDER-LINE HIGH RISK: 200-239 MG/DL 170-199 MG/DL HIGH RISK: >240 MG/DL >200 MG/DL CLASS. FOR PRIMARY LDL CHOL PREVENTION: LDL CHOL-CHILD/ADOLESCENTS* DESIRABLE: <130 MG/DL <110 MG/DL BORDERLINE-HIGH RISK: 130-159 MG/DL 110-129 MG/DL HIGH RISK: >160 MG/DL >130 MG/DL *CHILDREN AND ADOLESCENTS REPRESENTS INDIVIDUALA AGED 2-19 YEARS EXCLUSIVE. CHRONIC KIDNEY DISEASE STAGING PER NKF: MALE GFR INTERPRETATION: 20-49 YRS: >60 mL/min Normal 50-59 YRS: >56 mL/min Normal 60-69 YRS: >49 mL/min Normal 70-79 YRS: >42 mL/min Normal 80 and above >35 mL/min Normal FEMALE GRF INTERPRETATION: 20-39 YRS: >60 mL/min Normal 40-49 YRS: >58 mL/min Normal 50-59 YRS: >51 mL/min Normal 60-69 YRS: >45 mL/min Normal 70-79 YRS: >39 mL/min Normal 80 and above >32 mL/min Normal Procedure Social History Code Duration Value Status Description Data Source(s ) Alcohol intake 02/14/2020 12:00:00 AM EST Not Currently completed [facility] Cigarette pack-years 02/14/2020 12:00:00 AM EST UNK completed [facility] Cigarettes smoked current (pack per day) - Reported 02/14/20 20 12:00:00 AM EST UNK completed [facility] Smoking 02/14/2020 12:00:00 AM EST Current every day smoker co mpleted Current every day smoker [facility] Vital Signs ID Date Data Source UNK Name Value Range Interpretation Code Description Data Source(s) Oxygen saturation in Arterial blood by Pulse oximetry 97 % 97 % [facility]YENIFER ([facility] Body mass index (BMI) [Ratio] 34.4 kg/m2 34.4 k g/m2 [facility] ([facility] [place] body weight 130 [lb_av] 130 [lb_av] MEDEN T ([facility] Body weight 213.00 [lb_av] 213.00 [lb_av] MEDEN T ([facility] Body height 66 [in_i] 66 [in_i] [facility] 5'6" Respiratory rate 18 /min 18 /min MED[facility] ( [facility] Heart rate 90 /min 90 /min [facility] ([facility] Body temperature 98.4 [degF] 98.4 [degF] [facility] ([facility] Diastolic blood pressure 88 mm[Hg] 88 mm[Hg] [facility] ([facility] Systolic blood pressure 138 mm[Hg] 138 mm[Hg] M EDENT ([facility] Oxygen saturation in Arterial blood by Pulse oximetry 97 % 97 % [facility] Body mass index (BMI) [Ratio] 33.96 kg/m2 33.96 kg/m2 [facility] Body weight 95.437 kg 95.437 kg [facility] Body height 167.6 cm 167.6 cm [facility] Heart rate 71 /min 71 /min [facility] Diastolic blood pressure 90 mm[Hg] 90 mm[Hg] [facility] Systolic blood pressure 132 mm[Hg] 132 mm[Hg] [facility] Oxygen saturation in Arterial blood by Pulse oximetry 94 % 94 % MED[facility] ([facility] Body mass index (BMI) [Ratio] 33.9 kg/m2 33.9 k g/m2 [facility] ([facility] [place] body weight 130 [lb_av] 130 [lb_av] MEDEN T ([facility] Body weight 210.00 [lb_av] 210.00 [lb_av] MEDEN T ([facility] Body height 66 [in_i] 66 [in_i] [facility] ([facility] 5'6" Respiratory rate 18 /min 18 /min MED[facility] ( [facility] Heart rate 94 /min 94 /min [facility] ([facility] Body temperature 98.1 [degF] 98.1 [degF] [facility] ([facility] Diastolic blood pressure 96 mm[Hg] 96 mm[Hg] [facility] ([facility] Systolic blood pressure 144 mm[Hg] 144 mm[Hg] M EDENT ([facility] Oxygen saturation in Arterial blood by Pulse oximetry 10 % 10 % [facility] ([facility] Head Occipital-frontal circumference by Tape measure 148 [in_i] 148 [in_i] [facility] ([facility] Body mass index (BMI) [Ratio] 33.9 kg/m2 33.9 k g/m2 [facility] ([facility] [place] body weight 130 [lb_av] 130 [lb_av] MEDEN T ([facility] Body weight 210.00 [lb_av] 210.00 [lb_av] MEDEN T ([facility] Body height 66 [in_i] 66 [in_i] MEDENT ([facility] 5'6" Respiratory rate 20 /min 20 /min MED[facility] ( [facility] Heart rate 84 /min 84 /min MED[facility] ([facility] Body temperature 97.4 [degF] 97.4 [degF] [facility] ([facility] Diastolic blood pressure 100 mm[Hg] 100 mm[Hg] [facility] ([facility] Systolic blood pressure 148 mm[Hg] 148 mm[Hg] M EDENT ([facility] Diastolic blood pressure 100 mm[Hg] 100 mm[Hg] [facility] ([facility] Systolic blood pressure 164 mm[Hg] 164 mm[Hg] M EDENT ([facility] Oxygen saturation in Arterial blood by Pulse oximetry 97 % 97 % [facility] ([facility] Body mass index (BMI) [Ratio] 32.8 kg/m2 32.8 k g/m2 [facility] ([facility] [place] body weight 130 [lb_av] 130 [lb_av] MEDEN T ([facility] Body weight 203.31 [lb_av] 203.31 [lb_av] MEDEN T ([facility] Body height 66 [in_i] 66 [in_i] MEDENT ([facility] 5'6" Respiratory rate 18 /min 18 /min MED[facility] ( [facility] Heart rate 80 /min 80 /min MED[facility] ([facility] Body temperature 98.1 [degF] 98.1 [degF] [facility] ([facility] Diastolic blood pressure 84 mm[Hg] 84 mm[Hg] [facility] ([facility] Systolic blood pressure 124 mm[Hg] 124 mm[Hg] M EDENT ([facility] Patient Treatment Plan of Care Planned Activity Planned Date Details Description Data Source (s) tizanidine 4 MG Oral Tablet 02/13/2020 12:00:00 AM [facility] gabapentin 600 MG Oral Tablet 02/12/2020 12:00:00 AM [facility] Alprazolam 1 MG Oral Tablet 02/12/2020 12:00:00 AM [facility] albuterol (PROVENTIL HFA;VENTOLIN HFA) 108 (90 Base) M CG/ACT inhaler 02/11/2020 12:00:00 AM [facility] Sertraline 100 MG Oral Tablet 02/09/2020 12:00:00 AM EST [facility] quetiapine 100 MG Oral Tablet 02/09/2020 12:00:00 AM [facility] Acetaminophen 325 MG / Hydrocodone Bitartrate 10 MG Or al Tablet 02/01/2020 12:00:00 AM [facility] Losartan Potassium 100 MG Oral Tablet 01/25/2020 12:00:00 AM EDT [facility] 30 ACTUAT fluticasone furoate 0.2 MG/ACT UAT / vilanterol 0.025 MG/ACTUAT Dry Powder Inhaler [Breo] 01/25/2020 12:00:00 AM EDT [facility] Omeprazole 40 MG Delayed Release Oral Capsule 01/24/2020 12:00:00 A M EDT [facility] Zolpidem tartrate 5 MG Oral Tablet 01/22/2020 12:00:00 AM EDT [facility] Alprazolam 0.5 MG Oral Tablet 01/14/2020 12:00:00 AM EDT [facility] buspirone hydrochloride 10 MG Oral Tablet 01/10/2020 12:00:00 AM ED T [facility] Ibuprofen 800 MG Oral Tablet 01/07/2020 12:00:00 AM EDT [facility]
[2020-05-18] MEDS ORDERED: XANA1TAB2 PO (11:02)
[2020-05-18] MEDS ORDERED: SERO1TAB PO (11:02)
--- OUTSIDE RECORDS SUMMARY | 2020-05-18 12:07 | CCD ---
Author Author [facility] Organization [facility] Address Unknown Phone Unavailable Care Team Providers Care Kelly Machine Operator Name Role Phone Stacy Jefferson Unavailable Unavailable Carleeacljenniffer, Stacy PA Unavailable Unavailable Ronny Stacy PA Unavailable Unavailable Barraclough, Stacy PA Unavailable Unavailable Barraclough, Stacy PA Unavailable Unavailable Barraclough, Stacy PA Unavailable Unavailable Svetlana Hdz MD Unavailable Unavailable Svetlana Hdz MD Unavailable Unavailable Svetlana Hdz MD Unavailable Unavailable Svetlana Hdz MD Unavailable Unavailable Svetlana Hdz MD Unavailable Unavailable Svetlana Hdz MD Unavailable Unavailable Svetlana Hdz MD Unavailable Unavailable Svetlana Hdz MD Unavailable Unavailable Svetlana Hdz MD Unavailable Unavailable Svetlnaa Hdz MD Unavailable Unavailable Svetlana Hdz MD [...] MARIAH LEY Unavailable Unavailable NIRU H MARIAH ELY Unavailable Unavailable Iona MARRUFO MD Unavailable Unavailable [...] is protected by Article 27-F of the [facility] Public Health law. If you continue you may have access to information: Regarding HIV / AIDS; Provided by facilities licensed or operated by the [facility] Office of Mental Health; or Provided by the [facility] Office for People With Developmental Disabilities. If such information is present, then the following [facility] mandated warning applies: This information [...] law may result in a fine or shelter sentence or both. A general authorization for the release of medical or other information is NOT sufficient authorization for further disc losure. Allergies and Adverse Reactions Type Description Substance Reaction Status Data Source(s ) Propensity to adverse reactions MORPHINE AND RELATED Morphine And R elated Active [facility] Encounters Encounter Providers Location Date Indications Data Source(s ) Outpatient Attender: MARIAH Diaz Office 01/2020 01:00:00 PM EST [facility] Outpatient Attender: Svetlana DAVIS.JUAN DANIEL-SJReggie.JUAN DANIEL 01/26 12:00:00 AM EST - 02/14/2020 03:02:49 PM EST [facility] Outpatient Attender: MARIAH Diaz Office 02:45:00 PM EDT [facility] Outpatient Attender: Stacy CARBALLO [employer] [facility] youssef 12/11/2019 11:00:00 AM EDT [facility] Outpatient Attender: MARIAH MARRUFO MD [facility] 05/2019 01:30:00 PM EDT [facility] ([facility] Joaquin CaceresCRose Marie) Immunizations Vaccine Date Status Description Data Source(s) [...] DAILY DOSE = 3 TABLETS SOLD: 03/29/2020 [facility] 10 mg 02/20/2020 12:00:00 AM EST tablet 30 TAKE ONE TABLET BY MOUTH AT BEDTIME NEEDED MAXIMUM DAILY DOSE = 1 TABLET TAKE ONE TABLET BY MOUTH AT BEDTIME NEEDED MAXIMUM DAILY DOSE = 1 TABLET SOLD: 02/20/2020 [facility] tizanidine 4 MG Oral Tablet TIZANIDINE HCL 02/13/2020 12:00:00 AM EST tablet 90 TAKE 1 TABLET BY MOUTH THREE TIMES A DAY NEEDED MAX IMUM DAILY DOSE = 3 TAKE 1 TABLET BY MOUTH THREE TIMES A DAY NEEDED MAXIMUM DAILY DOSE = 3 SOLD: 04/12/2020 [facility] tizanidine 4 MG Oral Tablet TIZANIDINE HCL 02/13/2020 12:00:00 AM EST tablet 90 TAKE 1 TABLET BY MOUTH THREE TIMES A DAY NEEDED MAX IMUM DAILY DOSE = 3 TAKE 1 TABLET BY MOUTH THREE TIMES A DAY NEEDED MAXIMUM DAILY DOSE = 3 SOLD: 03/20/2020 [facility] tizanidine 4 MG Oral Tablet tiZANidine (ZANAFLEX) 4 MG tablet tiZANidine (ZANAFLEX) 4 MG tablet 02/13/2020 12:00:00 AM EST active as needed [facility] tizanidine 4 MG Oral Tablet TIZANIDINE HCL 02/13/2020 12:00:00 AM EST tablet 90 TAKE 1 TABLET BY MOUTH THREE TIMES A DAY NEEDED MAX IMUM DAILY DOSE = 3 TAKE 1 TABLET BY MOUTH THREE TIMES A DAY NEEDED MAXIMUM DAILY DOSE = 3 SOLD: 05/10/2020 [facility] tizanidine 4 MG Oral Tablet TIZANIDINE HCL 02/13/2020 12:00:00 AM EST tablet 90 TAKE 1 TABLET BY MOUTH THREE TIMES A DAY NEEDED MAX IMUM DAILY DOSE = 3 TAKE 1 TABLET BY MOUTH THREE TIMES A DAY NEEDED MAXIMUM DAILY DOSE = 3 SOLD: 02/15/2020 [facility] gabapentin 600 MG Oral Tablet gabapentin (NEURONTIN) 6 00 MG tablet gabapentin (NEURONTIN) 600 MG tablet 02/12/2020 12:00:00 AM EST active [facility] Alprazolam 1 MG Oral Tablet ALPRAZolam (XANAX) 1 MG ta blet ALPRAZolam (XANAX) 1 MG tablet 02/12/2020 12:00:00 AM EST active TAKE ONE TABLET BY MOUTH THREE TIMES A DAY MAXIMUM DAILY DOSE 3 TABLETS [facility] 1 mg 02/12/2020 12:00:00 AM EST tablet 90 TAKE ONE TABLET BY MOUTH THREE TIMES A DAY MAXIMUM DAILY DOSE = 3 TABLETS TAKE ONE TABLET BY MOUTH THREE TIMES A DAY MAXIMUM DAILY DOSE = 3 TABLETS SOLD: 02/12/2020 [facility] albuterol (PROVENTIL HFA;VENTOLIN HFA) 108 (90 Base) M CG/ACT inhaler 4169-6213-51 02/11/2020 12:00:00 AM EST active [facility] quetiapine 100 MG Oral Tablet QUEtiapine (SEROQUEL) 10 0 MG tablet QUEtiapine (SEROQUEL) 100 MG tablet 02/09/2020 12:00:00 AM EST 200 mg Oral active Take 200 mg by mouth daily [facility] Sertraline 100 MG Oral Tablet sertraline (ZOLOFT) 100 MG tablet sertraline (ZOLOFT) 100 MG tablet 02/09/2020 12:00:00 AM EST aborted TAKE TWO TABLETS BY MOUTH EVERY DAY MAXIMUM DAILY DOSE 2 [facility] 10-325 mg 02/01/2020 12:00:00 AM EST tablet 90 TAKE ONE TABLET BY MOUTH THREE TIMES A DAY MAXIMUM DAILY DOSE = 3 TABLETS TAKE ONE TABLET BY MOUTH THREE TIMES A DAY MAXIMUM DAILY DOSE = 3 TABLETS SOLD: 02/02/2020 [facility] Acetaminophen 325 MG / Hydrocodone Juan C trate 10 MG Oral Tablet HYDROcodone- acetaminophen (NORCO 10-325) 10-325 MG per tablet HYDROcodone-acetaminophen (NORCO 10-325) 10-325 MG per tablet 02/01/2020 12:00:00 AM EST active TAKE ONE TABLET BY MOUTH THREE TIMES A D AY MAXIMUM DAILY DOSE 3 TABLETS [facility] 30 ACTUAT fluticasone furoate 0.2 MG/ACT UAT / vilanterol 0.025 MG/ACTUAT Dry Powder Inhaler [Breo] BREO ELLIPTA 200-25 MCG/INH AEPB BREO ELLIPTA 200-25 MCG/INH AEPB 01/25/2020 12:00:00 AM EDT activ e INHALE ONE PUFF BY MOUTH EVERY DAY [facility] Losartan Potassium 100 MG Oral Tablet losartan (COZAAR ) 100 MG tablet losartan (COZAAR) 100 MG tablet 01/25/2020 12:00:00 AM EDT active TAKE 1 TABLET BY MOUTH EVERY DAY MAXIMUM DAILY DOSE 1 [facility] Omeprazole 40 MG Delayed Release Oral Ca psule omeprazole (PRILOSEC) 40 MG capsule omeprazole (PRILOSEC) 40 MG capsule 01/24/2020 12:00:00 AM EDT 40 mg Oral active Take 40 mg by mouth daily [facility] 40 mg 01/24/2020 12:00:00 AM EDT capsule,delayed [...] AT BEDTIME NEEDED FOR SLEEP MAX 1TAB/DAY [facility] 100 mg 01/14/2020 12:00:00 AM EDT tablet [...] A DAY MAXIMUM DAILY DOSE 3 TABLETS [facility] quetiapine 100 MG Oral Tablet QUETIAPINE FUMARATE 01/14/2020 12: 00:00 AM EDT tablet 30 TAKE ONE TABLET BY M OUTH EVERY DAY AT BEDTIME MAXIMUM DAILY DOSE = 1 TAKE ONE TABLET BY MOUTH EVERY DAY AT BEDTIME MAXIMUM DAILY DOSE = 1 SOLD: 02/09/2020 [facility] quetiapine 100 MG Oral Tablet QUETIAPINE [...] DAILY DOSE = 3 TABLETS SOLD: 01/14/2020 [facility] buspirone hydrochloride 10 MG Oral Tablet busPIRone (B USPAR) 10 MG tablet busPIRone (BUSPAR) 10 MG tablet 01/10/2020 12:00:00 AM EDT 10 mg O ral active Take 10 mg by mouth as needed [facility] buspirone hydrochloride 10 MG Oral Tablet BUSPIRONE [...] A DAY NEEDED MAXIMUM DAILY DOSE 3 [facility] 10-325 mg 01/03/2020 12:00:00 AM EDT tablet [...] MOUTH FOUR TIMES A DAY SOLD: 12/19/2019 [facility] 600 mg 12/19/2019 12:00:00 AM EDT [...] 12/12/2019 12:00:00 AM EDT ORAL active [facility] ([facility] buspirone hydrochloride 10 MG Oral Tablet BUSPIRONE HCL 12/12/2019 12:00:00 AM EDT tablet 90 TAKE ONE TABLET BY MOUTH THREE TIMES A DAY MAXIMUM DAILY DOSE = THREE TABLETS TAKE ONE TABLET BY MOUTH THREE TIMES A D AY MAXIMUM DAILY DOSE = THREE TABLETS SOLD: 12/12/2019 [facility] 90 mcg/actuation 12/12/2019 12:00:00 AM EDT [...] 12/11/2019 12:00:00 AM EDT ORAL active [facility] ([facility] 10-325 mg 12/06/2019 12:00:00 [...] PUFF BY MOUTH EVERY DAY SOLD: 11/20/2019 [facility] 200-25 mcg/dose 08/10/2019 12:00:00 AM EDT [...] 06/29/2019 12:00:00 AM EDT ORAL active [facility] ([facility] 5 mg 06/29/2019 12:00:00 [...] BY MOUTH TWICE A DAY SOLD: 04/20/2019 [facility] Amitriptyline Hydrochloride 25 MG Oral Tablet AMITRIPTYLINE HCL 03/26/2019 12:00:00 AM EST tablet 30 TAKE ONE TABLET BY MOUTH EVERY NIGHT AT BEDTIME TAKE ONE TABLET BY MOUTH EVERY NIGHT AT BEDTIME SOLD: 06/07/2019 [facility] Amitriptyline Hydrochloride 25 MG Oral Tablet [...] 30 TAKE ONE TABLET BY MOUTH AUGIE DAY MAXIMUM DAILY DOSE = 1 TAKE ONE [...] type / Coverage type Policy ID Covered libertarian ID Covered libertarian's relationship to greco Policy Greco Plan Information CHADWICK [id number] SP [id number] MEDICARE [id number] SP [id number] MEDICARE [id number] MEDICARE [id number] Jocelin [id number] MEDICARE C [id number] S [id number] ANSI-Medicare Part [id number] [employer] COMMUNITY PLAN MCDO [id number] SP [id number] MEDICAID [id number] SP [id number] Medicare C [id number] SELF [id number] Medicare C [id number] SELF [id number] [facility] Comm Plan Medicaid F [id number] SELF [id number] [facility] Comm Plan Medicaid F [id number] SELF [id number] [facility] Comm Plan Medicaid F [id number] SELF [id number] [facility] O [id number] S [id number] [facility] COMMUNITY [facility]AN [facility] [id number] SP [id number] [facility] Comm Plan Medicaid F [id number] SELF [id number] [facility] Comm Plan Medicaid F [id number] SELF [id number] [facility] O UNAVAILABLE C UNAVAILABLE BLUE [place] PLAN [id number] SP [id number] [facility] BLUE [id number] SP [id number] Problems, Conditions, and Diagnoses Code Display Name Description Problem Type Effective Dates Data Source(s) E66.09 Class 1 obesity due to exces s calories with body mass index (BMI) of 34.0 to 34.9 in adult Class 1 obesity due to excess calories w ith body mass index (BMI) of 34.0 to 34.9 in adult [id number] 02/14/2020 12:00:00 AM [facility] I10 Essential hypertension Essential hypertension [id number] 02/14/2020 12:00:00 AM [facility] F17.200 Smoker Smoker [id number] 02/14/2020 12:00:00 AM T [facility] R07.89 Chest discomfort Chest discomfort [id number] 02/14/2020 12 :00:00 AM [facility] R07.89 Other chest pain Other chest pain Diagnosis 02/14/2020 02 :10:13 PM [facility] Surgeries/Procedures Procedure Description Date Indications Data Source(s) ECG ROUTINE ECG W/LEAST 12 LDS W/I&R POCT AMB EKG Routine 02/14/2020 2:42 PM EST Chest discomfort 02/14/2020 07:42:00 PM EST Chest discomfort [facility] Chest discomfort Electrocardiogram Complete 12/11/2019 12:00:00 AM EDT [facility] ([facility] BLOOD COUNT COMPLETE AUTO&AUTO DIFRNTL WBC COUNT CBC AND DIFFER ENTIAL Routine 12/09/2019 12/09/2019 12:00:00 AM EDT [facility] THYROID STIMULATING HORMONE TSH TSH Routine 12/09/2019 12/09/2019 12:00:00 AM EDT [facility] BASIC METABOLIC PANEL CALCIUM TOTAL BASIC METABOLIC PANEL Routine 12/09/2019 12/09/2019 12:00:00 AM EDT [facility] Results ID Date Data Source [id number] 12/09/2019 10:07:00 PM EDT [facility] ([facility] Name Value Range Interpretation Code Description Data Aminata rce(s) Supporting Document(s) Appearance, Urine RFX Laboratory test result Nor mal (applies to non-numeric results) [facility] Color, Urine RFX Laboratory test result Normal ( applies to non-numeric results) [facility] ([facility] ) Specific Carlock Ur Auto RFX 1.002 1.002-1.035 Nor mal (applies to non-numeric results) [facility] ([facility] PH,Urine RFX 6.0 units 5.0-9.0 Normal (applies to non-numeric res ults) [facility] ([facility] Protein, Urine Auto RFX Laboratory test result N ormal (applies to non-numeric results) [facility] ([facility] Ketone, Urine Auto RFX Laboratory test result No rmal (applies to non-numeric results) [facility] ([facility] Glucose, Urine (Ua) Auto RFX Laboratory test result Normal (applies to non- numeric results) [facility] ([facility] Urobilinogen, Urine Auto RFX 0.2 mg/dL 0.0-2.0 Nor mal (applies to non-numeric results) [facility] ([facility] ) Bilirubin, Urine Auto RFX Laboratory test result Normal (applies to non- numeric results) [facility] ([facility] ) Nitrite, Urine Auto RFX Laboratory test result N ormal (applies to non-numeric results) [facility] Leukocyte Esterase Ur Auto RFX Laboratory test result Normal (applies to non- numeric results) [facility] ([facility] ) Blood, Urine Blood RFX Laboratory test result No rmal (applies to non-numeric results) [facility] Bacteria, Urine Auto RFX Laboratory test result Normal (applies to non-numeric results) [facility] WBC, Urine Auto RFX 1 /HPF 0-3 Normal (applies to non-nume jany results) [facility] RBC, Urine Auto RFX 0 /HPF 0-3 Normal (applies to non-nume jany results) [facility] ([facility] Hyaline Cast, Urine Auto RFX 0 /LPF 0-1 Normal (appl ies to non-numeric results) [facility] Squam Epithelial Cell Ur Aurfx 1 /HPF 0-6 N ormal (applies to non-numeric results) [facility] ([facility] ) ID Date Data Source [id number] 12/09/2019 10:02:00 PM EDT [facility] ([facility] Name Value Range Interpretation Code Description Data Aminata rce(s) Supporting Document(s) Laboratory test finding (navigational concept) 0.00 ng/mL 0 .00-0.08 Normal (applies to non-numeric results) [facility] ID Date Data Source [id number] 12/09/2019 09:25:00 PM EDT [facility] ([facility] Name Value Range Interpretation Code Description Data Aminata rce(s) Supporting Document(s) Erythrocyte sedimentation rate by Westergren method 13 mm/hr 0-20 Normal (applies to non-numeric results) [facility] ID Date Data Source [id number] 12/09/2019 09:25:00 PM EDT [facility] Name Value Range Interpretation Code Description Data Aminata rce(s) Supporting Document(s) White Blood Count 9.7 10 4.0-10.0 Normal (applies to non-numeri c results) [facility] ([facility] Red Blood Count 4.72 10 4.00-5.40 Normal (applies to non-numeric results) [facility] ([facility] Hemoglobin 14.2 g/dL 12.0-15.5 Normal (applies to non-numeric resul ts) [facility] ([facility] Hematocrit 42.5 % 36.0-47.0 Normal (applies to non-numeric resul ts) [facility] ([facility] Mean Corpuscular Volume 90.0 fl 80.0-96.0 Normal ( applies to non-numeric results) [facility] ([facility] Red Cell Distribution Width 13.8 % 11.5-14.5 Norm al (applies to non-numeric results) [facility] ([facility] ) Platelet Count, Automated 278 10 150-450 Normal (applies to non-numeric results) [facility] ([facility] ) Mean Corpuscular Hemoglobin 30.1 pg 27.0-33.0 Norm al (applies to non-numeric results) [facility] ([facility] ) Mean Corpuscular HGB Conc 33.4 g/dL 32.0-36.5 Normal (applies to non-numeric results) [facility] ([facility] ) Dixon % 4.8 % 0.0-5.0 Normal (applies to non-numeric resul ts) [facility] ([facility] Neutrophils % 52.6 % 36.0-66.0 Normal (applies to non-numeric re sults) [facility] ([facility] Lymph % 37.2 % 24.0-44.0 Normal (applies to non-numeric resul ts) [facility] ([facility] Immature Granulocyte % 0.2 % 0-3.0 Normal (applies to non-n umeric results) [facility] Baso % 0.7 % 0.0-1.0 Normal (applies to non-numeric resul ts) [facility] Eos % 4.5 % 0.0-3.0 Above high normal [facility] Neutrophils # 5.1 10 1.5-8.5 Normal (applies to non-numeric re sults) [facility] ([facility] Nucleated Red Blood Cell % 0.0 % 0-0 Normal (applies to n on-numeric results) [facility] Lymph # 3.6 10 1.5-5.0 Normal (applies to non-numeric resul ts) [facility] Dixon # 0.5 10 0.0-0.8 Normal (applies to non-numeric resul ts) [facility] ([facility] Baso # 0.1 10 0.0-0.2 Normal (applies to non-numeric resul ts) [facility] Eos # 0.4 10 0.0-0.5 Normal (applies to non-numeric resul ts) [facility] ID Date Data Source [id number] 12/09/2019 09:25:00 PM EDT [facility] ([facility] Name Value Range Interpretation Code Description Data Aminata rce(s) Supporting Document(s) Lipoprotein lipase [Enzymatic activity/volume] in Serum or P lasma 219 U/L 73-393 Normal (applies to non-numeric results) [facility] ([facility] Natriuretic peptide.B prohormone N-Terminal [Mass/volu me] in Serum or Plasma 213 pg/mL Above high normal [facility] ([facility] Thyrotropin [Units/volume] in Serum or Plasma 1.050 uIU/ML 0. 358-3.740 Normal (applies to non-numeric results) [facility] ([facility] Thyroxine (T4) free [Mass/volume] in Serum or Plasma 0.81 ng/dL 0.76-1.46 Normal (applies to non-numeric results) [facility] Choriogonadotropin.beta subunit ( test) [Pres ence] in Serum or Plasma Laboratory test result Normal (applies to non-numeric results) [facility] ([facility] C reactive protein [Mass/volume] in Serum or Plasma by High sensitivity method 0.74 mg/dL 0.00-0.30 Above high normal [facility] ([facility] ID Date Data Source [id number] 12/09/2019 09:25:00 PM [facility] Name Value Range Interpretation Code Description Data Aminata rce(s) Supporting Document(s) Blood Urea Nitrogen 12 mg/dL 7-18 Normal (applies to non-nume jany results) [facility] ([facility] Glucose, Fasting 114 mg/dL 70-100 Above high normal [facility] ([facility] Glomerular Filtration Rate Laboratory test result Normal (applies to non- numeric results) [facility] ([facility] ) <content>Units are mL/min/1.73 m2</content>
<content></content>
<content>Chronic Kidney Disease Staging per NKF:</content>
<content></content>
<content>Stage I & II GFR >=60 Normal to Mildly Decreased</content>
<content>Stage III GFR 30- 59 Moderately Decreased</content>
<content>Stage IV GFR 15-29 Severely Decreased</content>
<content>Stage V GFR <15 Very Little GFR Left</content>
<content>ESRD GFR <15 on ACCOUNTANT SUPERVISOR</content>
<content></content> Creatinine For GFR 0.97 mg/dL 0.55-1.30 Normal (applies to non -numeric results) [facility] ([facility] Sodium Level 143 meq/L 136-145 Normal (applies to non-numeric res ults) [facility] Carbon Dioxide Level 25 meq/L 21-32 Normal (applies to non-num ifeoma results) [facility] ([facility] Chloride Level 112 meq/L 98-107 Above high normal [facility] ([facility] Potassium Serum 3.7 meq/L 3.5-5.1 Normal (applies to non-numeric results) [facility] ([facility] Anion Gap 6 meq/L 8-16 Below low normal [facility] ( [facility] Calcium Level 9.4 mg/dL 8.5-10.1 Normal (applies to non-numeric re sults) [facility] ([facility] ID Date Data Source [id number] 12/09/2019 09:25:00 PM EDT [facility] ([facility] Name Value Range Interpretation Code Description Data Aminata rce(s) Supporting Document(s) Alt/SGPT 28 U/L 12-78 Normal (applies to non-numeric resul ts) [facility] ([facility] Ast/Sgot 13 U/L 7-37 Normal (applies to non-numeric resul ts) [facility] ([facility] Alkaline Phosphatase 108 U/L 45-117 Normal (applies to non-num ifeoma results) [facility] ([facility] Total Protein 7.4 GM/DL 6.4-8.2 Normal (applies to non-numeric re sults) [facility] ([facility] Bilirubin,Total 0.2 mg/dL 0.2-1.0 Normal (applies to non-numeric results) [facility] ([facility] Bilirubin,Direct Laboratory test result 0.0-0.2 Normal ( applies to non-numeric results) [facility] ([facility] Albumin 3.8 GM/DL 3.2-5.2 Normal (applies to non-numeric resul ts) [facility] ([facility] Albumin/Globulin Ratio 1.1 1.2-2.2 Below low normal [facility] ([facility] ID Date Data Source [id number] 12/09/2019 09:25:00 PM EDT [facility] ([facility] Name Value Range Interpretation Code Description Data Aminata rce(s) Supporting Document(s) aPTT in Platelet poor plasma by Coagulation assay 25.2 s 25.0-38.4 Normal (applies to non-numeric results) [facility] Fibrin D-dimer FEU [Mass/volume] in Platelet poor plasma 573.71 ng/mL Above high normal [facility] ([facility] ID Date Data Source [id number] 12/09/2019 09:25:00 PM EDT [facility] ([facility] Name Value Range Interpretation Code Description Data Aminata rce(s) Supporting Document(s) Inr 0.84 Normal (applies to non-numeric resul ts) [facility] ([facility] THERAPUTIC HUMAN INR VALUES INDICATIONS NORMAL RANGES PROPHYLAXIS/TREATMENT OF: VENOUS THROMBOSIS 2.0-3.0 PULMONARY EMBOLISM 2.0-3.0 PREVENTION OF SYSTEMIC EMBOLISM FROM: TISSUE HEART VALVES 2.0-3.0 ACUTE MYOCARDIAL INFARCTION 2.0-3.0 VALVULAR HEART DISEASE 2.0-3.0 ATRIAL FIBRILLATION 2.0-3.0 MECHANICAL VALVES(HIGH RISK) 2.5-3.5 RECURRENT MYOCARDIAL INFARCTION 2.5-3.5 Prothrombin Time 11.7 s 11.8-14.0 Below low normal [facility] ([facility] ID Date Data Source [id number] 06/29/2019 04:42:00 PM EDT [facility] ([facility] Name Value Range Interpretation Code Description Data Aminata rce(s) Supporting Document(s) Chol 228 mg/dL 0-200 Above high normal [facility] ([facility] CLASSIFICATION CHOLESTEROL FO R [...] mL/min Normal Cho/HDL Ratio 4.7 CALC MEDENT ([facility] CLASSIFICATION CHOLESTEROL FO R [...] >32 mL/min Normal ID Date Data Source [id number] 06/29/2019 04:42:00 PM EDT WILLI ([facility] Name Value Range Interpretation Code Description Data Aminata rce(s) Supporting Document(s) BUN 15 mg/dL 8-23 MEDYENIFER ([facility] CLASSIFICATION CHOLESTEROL FO [...] mL/min Normal K 4.4 mmol/L 3.5-5.1 MEDENT ([facility] CLASSIFICATION CHOLESTEROL FO R ADULTS [...] mL/min Normal BUN/Creatinine Ratio 19.1 CALC MEDENT ([facility] CLASSIFICATION CHOLESTEROL FO [...] Normal CA 10.0 mg/dL 8.6-10.2 MEDENT ([facility] CLASSIFICATION [...] mL/min Normal Alt (SGPT) 15 U/L 0-41 [facility] ([facility] CLASSIFICATION CHOLESTEROL FO R ADULTS [...] >32 mL/min Normal Globulin 2.5 CALC MEDENT ([facility] CLASSIFICATION CHOLESTEROL [...] and above >32 mL/min Normal eGFR Non-Afr. Greek 87 # MEDENT ([facility] [...] 02/14/2020 12:00:00 AM EST Not Currently completed [facility] Cigarette pack-years 02/14/2020 12:00:00 AM EST UNK completed [facility] Cigarettes smoked current (pack per day) - Reported 02/14/20 20 12:00:00 AM EST UNK completed [facility] Smoking 02/14/2020 12:00:00 AM EST Current every day smoker co mpleted Current every day smoker [facility] Vital Signs ID Date Data Source UNK Name Value Range Interpretation Code Description Data Source(s) Oxygen saturation in Arterial blood by Pulse oximetry 97 % 97 % MEDYENIFER ([facility] Body mass index (BMI) [Ratio] 34.4 kg/m2 34.4 k g/m2 MEDENT ([facility] [place] body weight 130 [lb_av] 130 [lb_av] MEDEN [...] by Pulse oximetry 97 % 97 % [facility] Body mass index (BMI) [Ratio] 33.96 kg/m2 33.96 kg/m2 [facility] Body weight 95.437 kg 95.437 kg [facility] Body height 167.6 cm 167.6 cm [facility] Heart rate 71 /min 71 /min [facility] Diastolic blood pressure 90 mm[Hg] 90 mm[Hg] [facility] Systolic blood pressure 132 mm[Hg] 132 mm[Hg] [facility] Oxygen saturation in Arterial blood by Pulse oximetry 94 % 94 % MEDENT ([facility] Body mass index (BMI) [Ratio] 33.9 kg/m2 33.9 k g/m2 MEDENT ([facility] [place] body weight 130 [lb_av] 130 [lb_av] MEDEN T ([facility] Body weight 210.00 [lb_av] 210.00 [lb_av] MEDEN T ([facility] Body height 66 [in_i] 66 [in_i] MEDENT ([facility] 5'6" Respiratory rate 18 /min 18 /min MEDENT ( [facility] Heart rate 94 /min 94 /min MEDENT ([facility] Body temperature 98.1 [degF] 98.1 [degF] MEDENT ([facility] Diastolic blood pressure 96 mm[Hg] 96 mm[Hg] MEDENT ([facility] Systolic blood pressure 144 mm[Hg] 144 mm[Hg] M EDENT ([facility] Oxygen saturation in Arterial blood by Pulse oximetry 10 % 10 % MEDENT ([facility] Head Occipital-frontal circumference by Tape measure 148 [in_i] 148 [in_i] MEDENT ([facility] Body mass index (BMI) [Ratio] 33.9 kg/m2 33.9 k g/m2 MEDENT ([facility] [place] body weight 130 [lb_av] 130 [lb_av] MEDEN T ([facility] Body weight 210.00 [lb_av] 210.00 [lb_av] MEDEN T ([facility] Body height 66 [in_i] 66 [in_i] MEDENT ([facility] 5'6" Respiratory rate 20 /min 20 /min MEDENT ( [facility] Heart rate 84 /min 84 /min MEDENT ([facility] Body temperature 97.4 [degF] 97.4 [degF] MEDENT ([facility] Diastolic blood pressure 100 mm[Hg] 100 mm[Hg] MEDENT ([facility] Systolic blood pressure 148 mm[Hg] 148 mm[Hg] M EDENT ([facility] Diastolic blood pressure 100 mm[Hg] 100 mm[Hg] MEDENT ([facility] Systolic blood pressure 164 mm[Hg] 164 mm[Hg] M EDENT ([facility] Oxygen saturation in Arterial blood by Pulse oximetry 97 % 97 % MEDENT ([facility] Body mass index (BMI) [Ratio] 32.8 kg/m2 32.8 k g/m2 MEDENT ([facility] [place] body weight 130 [lb_av] 130 [lb_av] MEDEN T ([facility] Body weight 203.31 [lb_av] 203.31 [lb_av] MEDEN T ([facility] Body height 66 [in_i] 66 [in_i] MEDENT ([facility] 5'6" Respiratory rate 18 /min 18 /min MEDENT ( [facility] Heart rate 80 /min 80 /min MEDENT ([facility] Body temperature 98.1 [degF] 98.1 [degF] MEDENT ([facility] Diastolic blood pressure 84 mm[Hg] 84 mm[Hg] MEDENT ([facility] Systolic blood pressure 124 mm[Hg] 124 mm[Hg] M EDENT ([facility] Patient Treatment Plan of Care Planned Activity Planned Date Details Description Data Source (s) tizanidine 4 MG Oral Tablet 02/13/2020 12:00:00 AM [facility] gabapentin 600 MG Oral Tablet 02/12/2020 12:00:00 AM [facility] Alprazolam 1 MG Oral Tablet 02/12/2020 12:00:00 AM [facility] albuterol (PROVENTIL HFA;VENTOLIN HFA) 108 (90 Base) M CG/ACT inhaler 02/11/2020 12:00:00 AM [facility] Sertraline 100 MG Oral Tablet 02/09/2020 12:00:00 AM EST [facility] quetiapine 100 MG Oral Tablet 02/09/2020 12:00:00 AM [facility] Acetaminophen 325 MG / Hydrocodone Bitartrate 10 MG Or al Tablet 02/01/2020 12:00:00 AM [facility] Losartan Potassium 100 MG Oral Tablet 01/25/2020 12:00:00 AM EDT [facility] 30 ACTUAT fluticasone furoate 0.2 MG/ACT UAT / vilanterol 0.025 MG/ACTUAT Dry Powder Inhaler [Breo] 01/25/2020 12:00:00 AM EDT [facility] Omeprazole 40 MG Delayed Release Oral Capsule 01/24/2020 12:00:00 A M EDT [facility] Zolpidem tartrate 5 MG Oral Tablet 01/22/2020 12:00:00 AM EDT [facility] Alprazolam 0.5 MG Oral Tablet 01/14/2020 12:00:00 AM EDT [facility] buspirone hydrochloride 10 MG Oral Tablet 01/10/2020 12:00:00 AM ED T [facility] Ibuprofen 800 MG Oral Tablet 01/07/2020 12:00:00 AM EDT [facility]
--- NOTE | 2020-05-18 12:20 | REP ---
INDICATION: pain over 5th metacarpal into distal 5th phalynx, guillermo rom. COMPARISON: 01/18/2012 TECHNIQUE: Four views FINDINGS: Four views again show small bone cyst distal head of the 3rd metacarpal, unchanged. There is spurring at the DIP joint of the 5th digit dorsally unchanged. I see no avulsion fracture or other focal bone lesion about the 5th digit IP joints or phalanges. The 1st through 4th metacarpals show no fracture. There is soft tissue swelling over the dorsal aspect of the hand the lateral view and a small ossific density along the dorsal aspect of the distal head of the 5th metacarpal adjacent to the swelling that could be a small avulsion. The other phalanges, carpal bones and the distal radius and ulna were intact. IMPRESSION: Dorsal aspect distal head 5th metacarpal with a small ossific density and adjacent soft tissue swelling, seen best on the lateral view and possibly representing small avulsion or dorsal spur avulsion. Fifth finger DIP joint degenerative spurring dorsally as on the previous exam. 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 No other finding. <Electronically signed by Jose Miguel Sherman > 05/18/20 [id number]
== END 2020-05-18 12:28 | disposition left against medical advice (07) ==
LOC: M ED 10:53
DX: M79.645 Pain in left finger(s) (principal); X58.XXXA Exposure to other specified factors, initial encounter; Y92.9 Unspecified place or not applicable; Y93.9 Activity, unspecified; Y99.9 Unspecified external cause status; Z53.9 Procedure and treatment not carried out, unspecified reason; M85.442 Solitary bone cyst, left hand; M19.042 Primary osteoarthritis, left hand; G89.29 Other chronic pain; M54.2 Cervicalgia; M54.5 Low back pain; M79.7 Fibromyalgia; I10 Essential (primary) hypertension; E78.5 Hyperlipidemia, unspecified; G47.33 Obstructive sleep apnea (adult) (pediatric); F17.200 Nicotine dependence, unspecified, uncomplicated; Z79.899 Other long term (current) drug therapy; Z88.6 Allergy status to analgesic agent

== ENCOUNTER → 2020-09-17 | Outpatient (CLI) | payer MEDICARE ==
[~2020-09-17] MED LIST changes: +BUSP-29 PO; +HYDR-3363 PO; +PATIENT COMMENT; +SERO1TAB PO; +XANA1TAB2 PO; +ZOLO100T PO; +ZOLP10TA2 PO
--- NOTE | 2020-09-17 17:49 | REPVR ---
PROCEDURE INFORMATION: Exam: MR Lumbar Spine Without Contrast. Exam date and time: 09/17/2020 3:37 PM Age: 50 years old Clinical indication: Low back pain; Additional info: Spinal stenosis TECHNIQUE: Imaging protocol: Multiplanar magnetic resonance images of the lumbar spine without contrast. COMPARISON: 1. SPINE LUMBOSACRAL PARTIAL 03/05/2015 1:[address] ABD PELVIS W/O CONTRAST 07/21/2020 4:36 PM FINDINGS: Normal lumbar lordosis. Alignment anatomic. Bone marrow signal normal. No MR evidence of acute fracture, dislocation or subluxation. Vertebral body heights maintained. Conus terminates at approximately the T12-L1 level. No abnormal signal within the visualized spinal cord. No fluid collection or soft tissue mass. Mild disc space narrowing and disc desiccation at T12-L1 and L1-L2 in association with shallow disc bulges. Remainder of the intervertebral disc spaces preserved. Shallow superimposed central disc protrusion at L1-L2. Mild multilevel facet/ligamentous hypertrophy. Mild spinal stenosis at L4-L5. No significant neural foraminal stenosis. IMPRESSION: Mild multilevel spondylosis and degenerative disc disease. Mild spinal stenosis at L4-L5. No significant neural foraminal stenosis. Electronically signed by: Elmer Jacobo On 09/17/2020 17:48:25 PM
== END ==
LOC: M PLARAD 14:47
PROVIDERS: ATTEND Internal Medicine
DX: M48.00 Spinal stenosis, site unspecified (principal)

== ENCOUNTER → 2020-09-19 | Outpatient (CLI) | payer MEDICARE ==
--- NOTE | 2020-09-23 00:19 | ECWPNPC ---
PATIENT NAME: LATOYA METZ : 1970 GENDER: FEMALE VISIT DATE: 09/19/2020 DISCHARGE DATE: 09/19/20924 VISIT LOCKED DATE TIME: PHYSICIAN: NIKI LATHAM RESOURCE: NIKI LATHAM REASON FOR APPOINTMENT 1. DORSALGIA/SCIATICA HISTORY OF PRESENT ILLNESS DEPRESSION SCREENING: PHQ-2 (2015 EDITION) LITTLE INTEREST OR PLEASURE IN DOING THINGS?NOT AT ALL FEELING DOWN, DEPRESSED, OR HOPELESS?NOT AT ALL TOTAL SCORE0 GENERAL: 50-YEAR-OLD FEMALE BEING REFERRED BY PRIMARY CARE, DR. MARIAH MARRUFO, FOR CHRONIC BACK PAIN. WAS A PATIENT HERE 7 YEARS AGO. RECENT HOSPITAL VISIT IN JUNE FOR DRUG OVERDOSE. WHEN QUESTIONED, PATIENT STATES " SHE MAY HAVE TAKEN TOO MANY VICODIN." CHIEF AREA OF PAIN IS LOW BACK THAT RADIATES INTO HER LEFT LEG. LONG HISTORY OF CHRONIC PAIN. NEW AREA OF PAIN GOING INTO HER LEFT LEG. MRI OF THE LS SPINE THAT WAS DONE LAST WEEK IS REVIEWED. THIS IS SHOWING MULTILEVEL DEGENERATIVE CHANGES AND MILD SPINAL STENOSIS. THIS PAIN IN HER LEFT LEG WAS FOUND AFTER SHE WAS FOUND UNCONSCIOUS. PATIENT DOES NOT KNOW IF SHE FELL. PATIENT SIGNED HERSELF OUT OF HOSPITAL AGAINST MEDICAL ADVICE. DENIES BOWEL OR BLADDER INCONTINENCE. DENIES SADDLE PARESTHESIAS. - - -. FALL RISK SCREENING: SCREENING : NO FALLS REPORTED IN THE LAST YEAR . PAIN SCREENING: PATIENT HAS A COMPLAINT OF ACUTE OR CHRONIC PAIN :YES LOCATION OF PAIN:NECK, LOW BACK INTENSITY OF PAIN (SCALE OF 1 TO 10):8 WHAT DOES YOUR PAIN FEEL LIKE:BURNING DURATION:CONTINOUS, CONSTANT, ALL DAY, MAINLY DURING THE NIGHT PAIN IS INCREASED BY:ACTIVITIES PAIN IS DECREASED BY:OTHERS CBD OIL, HEAT AND ICE NURSING NOTE: - - -. PAIN CENTER INTAKE QUESTIONS: DO YOU HAVE A HISTORY OF MRSA? :NO DO YOU TAKE A BLOOD THINNERS? :NO DO YOU HAVE ANY BLEEDING DISORDERS? :NO ANY NEW NUMBNESS OR WEAKNESS IN YOUR LEGS OR ARMS? :YES LEFT FOOT , BEHIND OF LEG INTO THE BIG TOE NUMBNESS ANY PACEMAKER,DEFIBRILLATOR, OR DORSAL COLUMN STIMULATOR? :NO DO YOU HAVE ANY RASHES OR OPEN SORES? :NO ARE YOU ALLERGIC TO IV DYE? :NO ARE YOU DIABETIC? :NO ANY NEW PROBLEMS WITH YOUR MEDICATIONS? :NO HAVE YOU RECEIVED A VACCINE IN THE PAST 30 DAYS? :NO CHUCK 07/07/2020 DO YOU PLAN TO RECEIVE A VACCINE IN THE NEXT 21 DAYS? :NO DO YOU NEED ANY PRESCRIPTION? :NO DO YOU TAKE ANY IMMUNOSUPPRESSIVE MEDICATIONS? :NO IS THERE A CHANCE YOU COULD BE ? :NO ARE YOU BREAST FEEDING? :NO CURRENT MEDICATIONS TAKING SEROQUEL 25 MG TABLET 1 TABLET AT BEDTIME ORALLY ONCE A DAY TAKING GABAPENTIN 600 MG TABLET 1 CAPSULE ORALLY THREE TIMES DAILY TAKING LOSARTAN POTASSIUM 100 MG TABLET 1 TABLET ORALLY ONCE A DAY TAKING OMEPRAZOLE 40 MG CAPSULE DELAYED RELEASE 1 CAPSULE ORALLY TWICE DAILY TAKING TIZANIDINE HCL 4 MG TABLET 1 TABLET NEEDED ORALLY THREE TIME A DAY TAKING ZOLPIDEM TARTRATE 10 MG TABLET 1 TABLET AT BEDTIME ORALLY ONCE A DAY TAKING BREO ELLIPTA 200-25 MCG/INH AEROSOL POWDER BREATH ACTIVATED 1 PUFF INHALATION ONCE A DAY TAKING INCRUSE ELLIPTA 62.5 MCG/INH AEROSOL POWDER BREATH ACTIVATED 1 PUFF INHALATION ONCE A DAY TAKING IBUPROFEN 800 MG TABLET 1 TABLET WITH FOOD OR MILK NEEDED ORALLY THREE TIMES A DAY TAKING VICODIN 10MG 1 TAB ORAL THREE TIMES A DAY NOT-TAKING BUSPIRONE HCL 10 MG TABLET 1 TABLET ORALLY THREE TIMES A DAY NOT-TAKING BENADRYL ALLERGY 25 MG TABLET 1 TABLET AT BEDTIME NEEDED ORALLY ONCE A DAY NOT-TAKING ZOLOFT 50 MG TABLET 1 TABLET ORALLY ONCE A DAY NOT-TAKING ALBUTEROL SULFATE HFA 108 (90 BASE) MCG/ACT AEROSOL SOLUTION 2 PUFFS INHALATION ONCE A DAY NOT-TAKING HYDROCODONE-ACETAMINOPHEN 10-325 MG TABLET 1 TABLET NEEDED ORALLY THREE TIMES DAILY NEEDED NOT-TAKING VALTREX 500 MG TABLET 2 TABLETS ORALLY EVERY 12 HRS NOT-TAKING VENLAFAXINE HCL ER 150 MG TABLET EXTENDED RELEASE 24 HOUR 1 TABLET WITH FOOD ORALLY ONCE A DAY NOT-TAKING VALTREX 500 MG TABLET 1 TABLET ORALLY EVERY 12 HRS MEDICATION LIST REVIEWED AND RECONCILED WITH THE PATIENT PAST MEDICAL HISTORY ASTHMA DEGENERATIVE DISC DISEASE B/L PLANTAR FASCITIS HTN INSOMNIA HEART BURN ARTHRITIS FIBRMYALGIA TYRER MARYZICK SCORE 11.06% PEPTIC REFULUX DISEASE POLYARTHROPATHY CHRONIC PAIN SYNDROME CHRONIC OBSTRUCTIVE LUNG DISEASE COPD ACUTE BRONCHITIS NECK PAIN ACUTE PHARYNGITIS ACUTE SINUSITIS BACK PAIN CHRONIC LEG PAIN OBESITY ASPIRATION PNEUMONIA ACUTE KIDENY INJURY NARCOTIC OVERDOSE HYPOTHERMIA ALLERGIES MORPHINE SULFATE: ITCHING - SIDE EFFECTS SURGICAL HISTORY C SECTION 1992 TUBAL LIGATION WITH REMOVAL OF ADHESIONS 2004 FAMILY HISTORY FATHER: 47 YRS, HTN, [place], [place] MOTHER: 53 YRS, DYSLIPIDEMIA, [place] SIBLINGS: ALIVE, BROTHER HAS DIABETES, HTN SISTER HAS DIABETES, HTN, DYSLIPIDEMIA SON(S): ALIVE PATERNAL GRAND FATHER: UNKNOWN PATERNAL GRAND MOTHER: UNKNOWN MATERNAL GRAND FATHER: UNKNOWN MATERNAL GRAND MOTHER: UNKNOWN PATERNAL AUNT: CAD 2 BROTHER(S) , 1 SISTER(S) - HEALTHY. 1 SON(S) - HEALTHY. SOCIAL HISTORY GENERAL: TOBACCO USE ARE YOU A:CURRENT SMOKER ARE YOU INTERESTED IN QUITTING?NOT READY TO QUIT COUNSELED THE PATIENT ON SMOKING EFFECTS, EDUCATION [id number]/25/2021 HOW MANY CIGARETTES A DAY DO YOU SMOKE?11-20 HOW SOON AFTER YOU WAKE UP DO YOU SMOKE YOUR FIRST CIGARETTE?WITHIN 5 MIN HOW OFTEN DO YOU SMOKE CIGARETTES?EVERY DAY PATIENT COUNSELED ON THE DANGERS OF TOBACCO USE AND URGED TO QUIT:09/19/2020 LATEX QUESTIONNAIRE LATEX ALLERGY : HAVE YOU EVER DEVELOPED ANY TYPE OF REACTION AFTER HANDLING LATEX PRODUCTS SUCH RUBBER GLOVES, CONDOMS, DIAPHRAGMS, BALLOONS, SOCKS, OR UNDERWEAR?NO LATEX ALLERGY : HAVE YOU EVER DEVELOPED ANY TYPE OF REACTION DURING OR AFTER DENTAL APPOINTMENT, VAGINAL/RECTAL EXAMINATION, SURGICAL PROCEDURE, OR ANY OTHER EXPOSURE?NO LATEX RISK : HAVE YOU EVER HAD ANY DIFFICULTY BREATHING OR HIVES AFTER EATING OR HANDLING ANY FRUITS, OR VEGETABLES; SUCH KIWI, BANANAS, STONE FRUITS, OR CHESTNUTSNO LATEX RISK : DO YOU HAVE A PREVIOUS PERSONAL HISTORY OF MORE THAN NINE SURGERIES, SPINA BIFIDA, OR REPEATED CATHERIZATIONS? NO LATEX RISK : ARE YOU FREQUENTLY EXPOSED TO LATEX PRODUCTS IN YOUR OCCUPATION?NO DATE ASKED : 09/19/2020 ALCOHOL USE: NO. BMI CARE GOAL FOLLOW-UP ABOVE NORMAL BMI [facility]ARDING DIET ALCOHOL SCREENING DID YOU HAVE A DRINK CONTAINING ALCOHOL IN THE PAST YEAR?YES HOW OFTEN DID YOU HAVE SIX OR MORE DRINKS ON ONE OCCASION IN THE PAST YEAR?NEVER (0 POINTS) HOW MANY DRINKS DID YOU HAVE ON A TYPICAL DAY WHEN YOU WERE DRINKING IN THE PAST YEAR?1 OR 2 (0 POINTS) HOW OFTEN DID YOU HAVE A DRINK CONTAINING ALCOHOL IN THE PAST YEAR?MONTHLY OR LESS (1 POINT) POINTS1 INTERPRETATIONNEGATIVE RECREATIONAL DRUG USE DENIES. CAFFEINE CAFFEINE USE?YES DIET MT DEW, COFFEE- 9+ CUPS DAILY HIV / HEP-C SCREENING HIV TEST OFFERED TO PATIENT:YES DATE OFFERED:09/07/2018 TEST ACCEPTED:NO HEP-C TEST OFFERED TO PATIENT:NO REASON:PATIENT DECLINED BROCHURE PROVIDED TO PATIENTNO EVANGELICAL PTPCRILX11 NONE LANGUAGE LANGUAGES SPOKEN:BULGARIAN EDUCATION 12TH GRADE. 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 DIET: REGULAR. EXERCISE: NONE RELATED TO BACK PAIN. MARITAL STATUS: SINGLE. OTHERS AT HOME: S/O OF OVER 30 YEARS, SON. HOUSING: RENTS APARTMENT. HOSPITALIZATION/MAJOR DIAGNOSTIC PROCEDURE C- SECTION 1993 DRUG OVERDOSE 07/21/2020 REVIEW OF SYSTEMS CONSTITUTIONAL: ANY RECENT FEVER NO . CHILLS NO . WEIGHT CHANGE OF UNKNOWN REASONS NO . GASTROENTEROLOGY: NEW UNEXPLAINABLE CHANGES IN BOWEL CONTROL NO . CONSTIPATION NO . GENITOURINARY: ANY NEW CHANGE IN BLADDER CONTROL? NO . NEUROLOGY: NEW ONSET DIZZINESS OR NEUROLOGICAL CHANGES NOT MENTIONED NO . NEW NUMBNESS OR PAIN PATTERNS NOT MENTIONED AND PERTINENT TO TODAY'S VISIT NO . CARDIOLOGY: NEW CHEST PRESSURE NO . PATIENT DENIES NO . RESPIRATORY: UNEXPLAINABLE COUGH NO . NEW SHORTNESS OF BREATH NO . VITAL SIGNS WT 183 LBS, HT 65 IN, BMI 30.45 INDEX, BP 135/72 MM HG, HR 82 /MIN, RR 18 /MIN, TEMP 96.7 F, OXYGEN SAT % 97%, SAFE IN ENV? (Y/N) YES, NA INITIALS IL 08:40T.DONTAE HUI. EXAMINATION GENERAL EXAMINATION: GENERAL AWAKE,ALERT ,PLEAASANT . PSYCH AFFECT NORMAL . NECK:NO LYMPHADENOPATHY, SUPPLE. LUNGS: LUNG DUQUE ARE CLEAR TO AUSCULTATION BILATERALLY. GOOD MOVEMENT OF AIR . HEART: S1, S2 IN A REGULAR RATE AND RHYTHM.. MUSCULOSKELETAL: MUSCLE STRENGTH TESTING 4/5 BILATERAL LOWER EXTREMITIES. LUMBAR: TRIGGER POINTS:, ELICITED WITH PALPATION OVER LUMBAR AND THORACIC PARAVERTEBRAL MUSCLES. RANGE OF JOINT MOTION OF THE SPINE AGGRAVATES PAIN IN THESE REGIONS.. NEUROLOGIC EXAM:NORMAL SENSATION TO LIGHT TOUCH LOWER EXTREMITIES. DIAGNOSTIC TESTS REVIEWED MRI L/S SPINE-08/2020. ASSESSMENTS MYALGIA, OTHER SITE - M79.18 (PRIMARY) LUMBAGO WITH SCIATICA, LEFT SIDE - M54.42 TREATMENT MYALGIA, OTHER SITE MEDICATION: VALIUM TAB 5MG ORALLY (DIAZEPAM) (ORDERED FOR 10/03/2020) MEDICATION: NORCO TABLET 5MG/325MG ORALLY (HYDROCODONE/ACETAMINOPHEN) (ORDERED FOR 10/03/2020) NOTES: TRIGGER POINT INJECTIONS BILATERAL LOW BACK,BILATERAL THORACIC PRINTED AND REVIEWED PRE PROCEDURE INFORMATION, PATIENT VERBALIZED UNDERSTANDING. JUAN DAVID HUI ADVISED PATIENT THAT WE WOULD NOT RECOMMEND THAT SHE BE ON NARCOTIC PAIN MEDICATIONS FOR CHRONIC PAIN. PROCEDURE CODES FA211 ESTABILISHED PATIENT [facility] FAC[facility] CHARGE DISPOSITION & COMMUNICATION FOLLOW UP POST (REASON: TRIGGER POINT INJECTIONS BILATERAL LOW BACK,BILATERAL THORACIC) ELECTRONICALLY SIGNED BY RYAN ESCAMILLA ON 09/22/2020 AT 12:31 PM EDT DISCLAIMER : THIS IS A VISIT SUMMARY EXTRACTED FROM THE [employer] CHART. IT IS NOT A COPY OF THE [employer] PROGRESS NOTE. TYRA
== END ==
LOC: M PAIN 08:30
PROVIDERS: ATTEND Nurse Practitioner Family
DX: M79.18 Myalgia, other site (principal); M54.42 Lumbago with sciatica, left side; J44.9 Chronic obstructive pulmonary disease, unspecified; G47.00 Insomnia, unspecified; K21.9 Gastro-esophageal reflux disease without esophagitis; F17.210 Nicotine dependence, cigarettes, uncomplicated; Z88.5 Allergy status to narcotic agent; Z79.51 Long term (current) use of inhaled steroids; Z79.891 Long term (current) use of opiate analgesic; Z79.899 Other long term (current) drug therapy

== ENCOUNTER → 2022-05-04 | Outpatient (CLI) | payer MEDICAID, MEDICARE, OTHER ==
[~2022-05-04] MED LIST changes: -BUSP-29 PO; +BUSP10TA79 PO; +LOSA100T45 PO; -LOSA100T50 PO; +LOSA100T8 PO; -OMEP-221 PO; +OMEP40CA5 PO; +SOMA350T PO; +TIZA10TA PO; -TIZA4TAB4 PO
== END ==
LOC: M LABSMTC 09:13
PROVIDERS: ATTEND Anesthesiology
DX: Z01.812 Encounter for preprocedural laboratory examination (principal); Z11.52 Encounter for screening for COVID-19

== ENCOUNTER → 2022-06-21 | Outpatient (REF) | payer MEDICARE, OTHER, MEDICAID | LOC: M SFHCWAGY 13:07 | PROVIDERS: ATTEND Nurse Practitioner Family | DX: N73.9 Female pelvic inflammatory disease, unspecified (principal) ==

== ENCOUNTER 2022-07-12 12:04 | Day surgery (SDC) | payer MEDICAID, OTHER ==
[~2022-07-12] VITALS: Ht 167.6 cm; Wt 86.2 kg
[~2022-07-12 12:04] MED LIST changes: +NS 1,000 ML IV ONE
[2022-07-12] MEDS ORDERED: LIDOCAINE 2% 100MG/5ML SDV (FOR ANES.) As Ordered ONE (13:02)
[2022-07-12] MEDS ORDERED: propofoL 200 MG/20 ML VIAL As Ordered ONE ×2 (13:02→13:26)
[2022-07-12] MEDS ORDERED: fentaNYL 100 MCG/2 ML INJECTION As Ordered ONE (13:03)
[2022-07-12 14:02] VITALS: BP 164/107
== END 2022-07-12 14:13 | disposition home or self-care (01) ==
LOC: M OPP 12:04
PROVIDERS: ATTEND Internal Medicine Gastroenterology
DX: Z12.11 Encounter for screening for malignant neoplasm of colon (principal); K64.8 Other hemorrhoids; K57.30 Diverticulosis of large intestine without perforation or abscess without bleeding; R12 Heartburn
CPT/HCPCS: 43235; 45378; J3010

== ENCOUNTER → 2022-07-28 | Outpatient (REF) | payer OTHER, MEDICARE, MEDICAID ==
[~2022-07-28] MED LIST changes: -LOSA100T45 PO; +LOSA100T46 PO; -NS 1,000 ML IV ONE
== END ==
LOC: M SFHCWAGY 17:59
PROVIDERS: ATTEND Nurse Practitioner Family
DX: Z12.4 Encounter for screening for malignant neoplasm of cervix (principal)

== ENCOUNTER → 2022-07-28 | Outpatient (CLI) | payer OTHER | LOC: M WHC 09:26 | PROVIDERS: ATTEND Nurse Practitioner Family | DX: Z01.419 Encounter for gynecological examination (general) (routine) without abnormal findings (principal); Z12.31 Encounter for screening mammogram for malignant neoplasm of breast; F17.219 Nicotine dependence, cigarettes, with unspecified nicotine-induced disorders; Z13.820 Encounter for screening for osteoporosis | CPT/HCPCS: 77063; 77067; 87624; G0101; G0123 ==

== ENCOUNTER → 2023-08-01 | Outpatient (CLI) | payer OTHER, MEDICAID | LOC: M WHC 11:29 | PROVIDERS: ATTEND Nurse Practitioner Family | DX: Z12.31 Encounter for screening mammogram for malignant neoplasm of breast (principal) | CPT/HCPCS: 77063; 77067; G0463 ==